=== PATIENT | female | born 1930 | race Caucasian/White ===

== ENCOUNTER 2017-06-03 15:08 | Inpatient (IN) ==
--- NOTE | 2017-06-03 15:22 | Emergency Department Note ---
Disposition Clinical Impression: CHF exacerbation Qualifiers: Congestive heart failure type: unspecified congestive heart failure type Qualified Code(s): I50.9 - Heart failure, unspecified Dyspnea Qualifiers: Dyspnea type: unspecified Qualified Code(s): R06.00 - Dyspnea, unspecified Fluid overload Qualifiers: Hypervolemia type: unspecified Qualified Code(s): E87.70 - Fluid overload, unspecified Disposition: Admitted As Inpatient Condition: Good Time of Disposition: 18:13 SOB HPI - General Chief Complaint: ED Shortness of Breath/Dyspnea Stated Complaint: SOB Time Seen by Provider: 06/03/17 15:14 Source: patient Mode of arrival: EMS Limitations: no limitations Nursing Notes Reviewed: Yes Vital Signs Reviewed: Yes - History of Present Illness Patient is a 86-year-old female who presents today from a long-term due to shortness of breath and increasing edema. Patient has a past medical history of CHF, aortic stenosis with pig valve replacement, hypertension. Not on any blood thinners. She is accompanied by her son who states that for the past several months, patient has had increased shortness of breath on exertion, increased swelling of the lower extremities. Patient notes pain and bilateral lower extremities. She denies any chest pain, any current shortness of breath. However, she says that she is significantly short of breath when walking. Denies any nausea, vomiting, fevers, diarrhea, abdominal pain, productive cough. She was taking Lasix 20 mg daily but was recently increased to 40 mg daily. She states that this is not helping with her symptoms. Son is concerned that she could be fluid overloaded. - Related Data Home Medications Medication Instructions Recorded Confirmed Acetaminophen [Tylenol] 650 mg PO Q4H PRN 05/11/15 06/03/17 Fluticasone Propionate Nasal 1 spray NS DAILY 05/11/15 06/03/17 [Flonase] TraZODone 50 mg PO HS 05/11/15 06/03/17 Aspirin 81 mg PO DAILY 06/03/17 06/03/17 Bimatoprost [Lumigan] 1 drop BOTH EYES HS 06/03/17 06/03/17 Cholecalciferol (D-3) [Vitamin D] 1,000 unit PO DAILY 06/03/17 06/03/17 Docusate [Colace] 100 mg PO HS 06/03/17 06/03/17 Furosemide [Lasix] 40 mg PO DAILY PRN 06/03/17 06/03/17 Furosemide [Lasix] 40 mg PO QAM 06/03/17 06/03/17 GuaiFENesin/Dextromethorphan 7.5 ml PO Q6H PRN 06/03/17 06/03/17 [Tussin Dm Syrup] Ipratropium/Albuterol Neb [Duoneb] 3 ml IH QID PRN 06/03/17 06/03/17 Multivitamin-Min/Iron/FA/Vit K 1 each PO DAILY 06/03/17 06/03/17 [Multi-Day Plus Minerals Tablet] Omeprazole [PriLOSEC] 20 mg PO DAILY 06/03/17 06/03/17 RisperiDONE [Risperdal] 0.5 mg PO HS 06/03/17 06/03/17 Simvastatin [Zocor] 10 mg PO HS 06/03/17 06/03/17 Allergies Allergy/AdvReac Type Severity Reaction Status Date / Time Sulfa (Sulfonamide Allergy See Verified 05/16/15 15:51 Antibiotics) Comments All systems ED: reviewed and negative except as stated. Constitutional: Denies: fever Cardiovascular: Reports: dyspnea on exertion, edema. Denies: chest pain, palpitations Respiratory: Reports: dyspnea. Denies: cough, wheezes, hemoptysis, stridor, sputum production Gastrointestinal: Denies: abdominal pain, nausea, vomiting Musculoskeletal: Reports: other Neurological: Denies: weakness, numbness, paresthesias Past Medical History - Past Medical History Attestation: Yes The following information was validated with the patient. Source: patient Medical history: Reports: aortic aneurysm, arthritis, cancer, CHF, dementia, GERD, glaucoma, hyperlipidemia, hypertension, malignancy, venous stasis Psychiatric history: Reports: no psych history - Social History Smoking Status: Never smoker Smokeless Tobacco Status: No Alcohol use: Reports: none Drug use: Reports: none Physical Exam - General Limitations: no limitations General appearance: alert - Head Head exam: atraumatic, normocephalic, normal inspection - Eye Eye exam: Present: normal appearance, PERRL, EOMI - ENT ENT exam: normal exam, normal oropharynx, mucous membranes moist - Neck Neck exam: Present: normal inspection, full ROM, trachea midline - Chest Chest inspection: Present: normal inspection, symmetric chest wall rise - Respiratory Respiratory exam: Present: other (Decreased aeration of bilateral lower lobes, mild crackles) - Cardiovascular Cardiovascular exam: Present: regular rate, normal rhythm, normal heart sounds - Abdominal Exam Abdominal exam: Present: soft, Non-Tender. Absent: tenderness, distention, guarding, rebound, rigidity - Extremities Exam Extremities exam: Present: full ROM, tenderness, pedal edema, other (Bilateral lower extremity edema, pitting. Mild generalized tenderness of the bilateral lower extremity. No erythema. .). Absent: calf tenderness - Neurological Exam Neurological exam: Present: alert, oriented X3, CN II-XII intact. Absent: motor sensory deficit - Psychiatric Psychiatric exam: Present: normal affect, normal mood - Skin Skin exam: Present: warm, dry, intact, normal color Course Course Narrative: Patient hypertensive on exam. Currently satting 94% on room air. She has decreased aeration in the bilateral lower lobes along with mild crackles. Pitting edema bilateral lower extremities. Currently concern for fluid overload. Basic labs and chest x-ray were obtained. EKG shows evidence of bundle branch block, atrial fibrillation. Patient is not on blood thinners after discussion of risks versus benefit with clerical office worker, Dr. Pickens. No elevation of white blood cell count. Chronic mild anemia. Clinics EKG that is near baseline for the patient. Troponin negative. Elevated BNP. Chest x-ray shows cardiomegaly, interstitial edema. There is also concern for possible opacity in the left lower lobe. However, patient has no productive cough, no fever, no elevation white blood cell count. We will not treat for now. Patient is given IV Lasix 40 mg. Will admit for CHF exacerbation, fluid overload. Chest X-Ray 06/03/17 15:14 IMPRESSION: Cardiomegaly with mild interstitial central pulmonary edema and bilateral mkbg-[id number]-ojfj-right pleural effusions suggesting mild to moderate CHF. Left basilar opacity may represent atelectasis or consolidation from pneumonia. D/ / 06/03/2017 16:09:39 Rufino Aguirre MD / alphonse Interpreting Provider: Rufino Aguirre MD Vital Signs Temperature 98.1 F 06/03/17 15:11 Pulse Rate 74 06/03/17 15:11 Respiratory Rate 22 06/03/17 15:11 Blood Pressure 183/84 06/03/17 15:11 O2 Sat by Pulse Oximetry 94 06/03/17 15:11 Temperature 98.1 F 06/03/17 20:36 Pulse Rate 93 06/03/17 20:36 Respiratory Rate 16 06/03/17 20:36 Blood Pressure 185/62 06/03/17 20:36 O2 Sat by Pulse Oximetry 93 06/03/17 20:36 Oxygen Delivery Oxygen Delivery Nasal Cannula Shortness of Breath/Dyspnea - [facility] Narrative Medical decision making narrative: Patient hypertensive on exam. Currently satting 94% on room air. She has decreased aeration in the bilateral lower lobes along with mild crackles. Pitting edema bilateral lower extremities. Currently concern for fluid overload. Basic labs and chest x-ray were obtained. EKG shows evidence of bundle branch block, atrial fibrillation. Patient is not on blood thinners after discussion of risks versus benefit with clerical office worker, Dr. Pickens. No elevation of white blood cell count. Chronic mild anemia. Clinics EKG that is near baseline for the patient. Troponin negative. Elevated BNP. Chest x-ray shows cardiomegaly, interstitial edema. There is also concern for possible opacity in the left lower lobe. However, patient has no productive cough, no fever, no elevation white blood cell count. We will not treat for now. Patient is given IV Lasix 40 mg. Will admit for CHF exacerbation, fluid overload. - Medical Records Medical records reviewed: Yes I reviewed the patient's medical records. - Lab Data Lab results reviewed: Yes I reviewed the patient's lab results. Result diagrams: 06/03/17 15:40 06/03/17 15:40 Lab Results 06/03/17 06/03/17 06/03/17 Range/Units 15:40 15:40 15:40 WBC 7.2 (4.3-11.1) K/mcL RBC 3.47 L (3.82-4.97) M/mcL Hgb 10.5 L (11.5-15.4) g/dL Hct 33.6 L (35.3-44.9) % MCV 96.8 (83.0-100.0) fL MCH 30.3 (28.0-33.3) pg MCHC 31.3 L (31.6-35.5) g/dL RDW 15.8 H (11.5-14.5) % Plt Count 123 L (140-400) K/mcL MPV 10.9 (9.4-12.4) fL Immature Gran % 0.4 (0-4) % Seg Neutrophils % 75.7 % Lymphocytes % 10.9 % Monocytes % 10.2 % Eosinophils % 2.4 % Basophils % 0.4 % Neutrophils # 5.5 (1.6-8.9) K/mcL Lymphocytes # 0.8 (0.6-4.6) K/mcL Monocytes # 0.7 (0.0-1.3) K/mcL Eosinophils # 0.2 (0.0-0.6) K/mcL Basophils # 0.0 (0.0-0.2) K/mcL PT (9.4-12.1) Seconds INR APTT (26.0-36.0) Seconds Sodium 144 (136-145) mEq/L Potassium 3.6 (3.5-4.5) mEq/L Chloride 107 (98-109) mEq/L Carbon Dioxide 29 (19-29) mEq/L BUN 23 H (7-20) mg/dL Creatinine 1.35 H (0.57-1.11) mg/dL Est GFR ( Amer) 45 L (> 60) Est GFR (Non-Af Amer) 37 L (> 60) BUN/Creatinine Ratio 17 (6-26) Glucose 124 H (70-99) mg/dL Calculated Osmolality 303 H (280-300) Calcium 8.8 (8.6-10.8) mg/dL Troponin I 0.01 (0-0.03) ng/mL B-Natriuretic Peptide (0-100) pg/mL 06/03/17 06/03/17 Range/Units 15:40 15:40 WBC (4.3-11.1) K/mcL RBC (3.82-4.97) M/mcL Hgb (11.5-15.4) g/dL Hct (35.3-44.9) % MCV (83.0-100.0) fL MCH (28.0-33.3) pg MCHC (31.6-35.5) g/dL RDW (11.5-14.5) % Plt Count (140-400) K/mcL MPV (9.4-12.4) fL Immature Gran % (0-4) % Seg Neutrophils % % Lymphocytes % % Monocytes % % Eosinophils % % Basophils % % Neutrophils # (1.6-8.9) K/mcL Lymphocytes # (0.6-4.6) K/mcL Monocytes # (0.0-1.3) K/mcL Eosinophils # (0.0-0.6) K/mcL Basophils # (0.0-0.2) K/mcL PT 12.7 H (9.4-12.1) Seconds INR 1.2 APTT 30.3 (26.0-36.0) Seconds Sodium (136-145) mEq/L Potassium (3.5-4.5) mEq/L Chloride (98-109) mEq/L Carbon Dioxide (19-29) mEq/L BUN (7-20) mg/dL Creatinine (0.57-1.11) mg/dL Est GFR ( Amer) (> 60) Est GFR (Non-Af Amer) (> 60) BUN/Creatinine Ratio (6-26) Glucose (70-99) mg/dL Calculated Osmolality (280-300) Calcium (8.6-10.8) mg/dL Troponin I (0-0.03) ng/mL B-Natriuretic Peptide 1668 H (0-100) pg/mL - Radiology Data Radiology results reviewed: Yes I reviewed the patient's radiology results. Chest X-Ray 06/03/17 15:14 IMPRESSION: Cardiomegaly with mild interstitial central pulmonary edema and bilateral iaud-ftsbwji-cvmm-right pleural effusions suggesting mild to moderate CHF. Left basilar opacity may represent atelectasis or consolidation from pneumonia. D/ / 06/03/2017 16:09:39 Rufino Aguirre MD / alphonse Interpreting Provider: Rufino Aguirre MD - EKG Data EKG attestation: Yes I reviewed and interpreted this EKG. EKG results narrative: 06/03/2017 at 15:17. A. fib. Rate 67. QRS 142. QTc 474. Left axis deviation. Widened QRS with left bundle branch block S.B.A.R. - S.B.A.R. Situation: Demographics, MOA Background: Presenting Complaint, Relevant PMH, Meds, & Allergies Assessment: Vital Signs, Course and respsone to treatment, Exam Concerns, Patient/Family Expectation, Pertinant Lab Results Recommendation: Barrier(s) to disposition, Recommendation based on pending studies, treatments, or consults S.B.A.RArcelia Report Given to: Roni Buenrostro Repor Time: 18:13 Attestation Statement - Attestation Attestation: I, Ricardo Tyler, examined this patient and my medical decision-making was reviewed with the WATER QUALITY TECHNICIAN/PA/Advanced Practice Nurse/Resident Physician. I agree with the documented findings, disposition and treatment plan as described except to the extent set forth below. 86-year-old female presents with concerns of increasing shortness of breath and edema of the bilateral lower extremities. Patient states her symptoms have been worsening over the past week despite the increase of Lasix by her primary care provider. Chest x-ray shows pleural effusions and pulmonary vascular congestion. Patient denies fevers, chills, nausea, vomiting, cough, chest pain. Patient is status post mitral valve replacement and is currently DNR CC and no longer a surgical candidate for her heart, per the patient, after discussion of risks and benefits with Dr. Pickens. Patient given 40 mg of Lasix IV in the emergency department. She felt comfortable with the plan of action of admission to the hospital for further care and evaluation.
[2017-06-03 15:54] LABS: Basophils % 0.4 %; Eosinophils # 0.2 K/mcL (0.0-0.6); Eosinophils % 2.4 %; Hematocrit 33.6 % (35.3-44.9); Hemoglobin 10.5 g/dL (11.5-15.4); Immature Granulocytes % 0.4 % (0-4); Lymphocytes # 0.8 K/mcL (0.6-4.6); Lymphocytes % 10.9 %; Mean Corpuscular HGB Conc 31.3 g/dL (31.6-35.5); Mean Corpuscular Hemoglobin 30.3 pg (28.0-33.3); Mean Corpuscular Volume 96.8 fL (83.0-100.0); Mean Platelet Volume 10.9 fL (9.4-12.4); Monocytes # 0.7 K/mcL (0.0-1.3); Monocytes % 10.2 %; Neutrophils # 5.5 K/mcL (1.6-8.9); Platelet Count 123 K/mcL (140-400); Red Blood Count 3.47 M/mcL (3.82-4.97); Red Cell Distribution Width 15.8 % (11.5-14.5); Segmented Neutrophils % 75.7 %
[2017-06-03 16:06] LABS: Calcium 8.8 mg/dL (8.6-10.8); Potassium 3.6 mEq/L (3.5-4.5)
[2017-06-03] MEDS ORDERED: Furosemide 40 MG/4 ML VIAL IVP ONE (16:16)
[2017-06-03 16:25] LABS: INR 1.2; Prothrombin Time 12.7 Seconds (9.4-12.1)
[2017-06-03 16:28] LABS: Activated Partial Thrombo Time 30.3 Seconds (26.0-36.0)
[2017-06-03] MEDS ORDERED: Acetaminophen 325 MG TABLET PO PRN ×2 (20:09→20:16)
[2017-06-03] MEDS ORDERED: *HR* Promethazine 25 MG/ML VIAL IVP PRN (20:09)
[2017-06-03] MEDS ORDERED: Naloxone 0.4 MG/ML INJ IVP PRN (20:09)
[2017-06-03] MEDS ORDERED: Ondansetron 4 MG/2 ML VIAL IVP PRN (20:09)
[2017-06-03] MEDS ORDERED: Ipratropium/Albuterol Neb 3 ML IH PRN (20:16)
--- NOTE | 2017-06-03 20:19 | Internal Med History&Physical ---
Date of Encounter: 06/04/17 Time of Encounter: 20:40 Assessment and Plan (1) CHF exacerbation Current visit: Yes Status: Acute Acute exacerbation of CHF - unknown type, unknown LVEF Continue IV Lasix, Lisinopril Chest x-ray - cardiomegaly with mild interstitial edema, left basilar opacity EKG - atrial fibrillation with no acute ST-T changes Troponin - negative BN peptide - 1668 Echocardiogram - pending Restriction, strict I's and O's, daily weight, Cab[place] catheter Cardiac telemetry, continue to monitor closely Qualifiers: Congestive heart failure type: unspecified congestive heart failure type Qualified Code(s): I50.9 - Heart failure, unspecified (2) Pneumonia Current visit: Yes Status: Acute Left basilar opacity seen on chest x-ray - probable community-acquired pneumonia Continue IV Rocephin, Azithromycin, DuoNeb breathing treatment, O2 via nasal cannula Sputum culture Qualifiers: Pneumonia type: due to unspecified organism Laterality: left Lung location: lower lobe of lung Qualified Code(s): J18.1 - Lobar pneumonia, unspecified organism (3) Atrial fibrillation Current visit: Yes Status: Chronic Probable chronic atrial fibrillation - rate controlled Continue Toprol-XL, not on any anticoagulation likely due to advanced age and probable bleed risk Qualifiers: Atrial fibrillation type: chronic Qualified Code(s): I48.2 - Chronic atrial fibrillation (4) Hypertension Current visit: Yes Status: Chronic Essential hypertension, uncontrolled, monitor Start Toprol, Lisinopril Qualifiers: Hypertension type: essential hypertension Qualified Code(s): I10 - Essential (primary) hypertension (5) DVT prophylaxis Current visit: Yes Status: Acute Continue heparin subcutaneous Internal Medicine - H&P: HPI Chief complaint: Shortness of breath Admitted From: Emergency Dept Plans for Post Hospital Care: Transfer [facility] Facility History of present illness: Ms. Woodard is a 86 year old female with past medical history of arthritis, cancer, CHF, dementia, GERD, glaucoma, history of aortic aneurysm repair, hyperlipidemia, hypertension and history of venous stasis. [facility] for shortness of breath and worsening bilateral leg edema. Examined in the room. Patient is awake and alert. She is unable to provide good history due to dementia. Patient's son and daughters are in the room, and they provide history. Family was contacted by nursing facility stating the patient has been feeling more short of breath and her bilateral leg edema has also been worsening. Symptoms seem to gradually worsen over the past few days. Patient currently states she denies any chest pain or shortness of breath. Family members state that she is not at her baseline. No other symptoms at this time. The main concern for the family is significant worsening of bilateral lower leg edema. No acute symptoms. Initial workup in the evening is negative except for elevated BNP peptide. Troponin is negative. EKG reveals atrial fibrillation with no other acute ST-T changes. No other significant findings. CODE STATUS full code. Past Med Surg Social Fam HX - Past Medical History Medical history: aortic aneurysm, arthritis, cancer, CHF, dementia, GERD, glaucoma, hyperlipidemia, hypertension, malignancy, venous stasis Psychiatric history: no psych history - Past Surgical History Surgical History: other (Cardiac valve replacement, aortic aneurysm repair) - Social History Smoking Status: Never smoker Smokeless Tobacco Status: No Alcohol use: none Drug use: none - Family History Mother Living Status: Hx Family Cardiac Disorders: No Hx Family Respiratory Disorders: No Hx Family Cancer: Yes Hx Family GI Disorders: No Hx Family Endocrine Disorder: No Hx Family Neuromuscular Disorders: No Hx Family Neurologic Disorders: No Hx Family HEENT Disorders: No Hx Family Autoimmune Disorders: No Internal Medicine - H&P: Meds Acetaminophen [Tylenol] 650 mg PO Q4H PRN 05/11/15 [History] Fluticasone Propionate Nasal [Flonase] 1 spray NS DAILY 05/11/15 [History] TraZODone 50 mg PO HS 05/11/15 [History] Aspirin 81 mg PO DAILY 06/03/17 [History] Bimatoprost [Lumigan] 1 drop BOTH EYES HS 06/03/17 [History] Cholecalciferol (D-3) [Vitamin D] 1,000 unit PO DAILY 06/03/17 [History] Docusate [Colace] 100 mg PO HS 06/03/17 [History] Furosemide [Lasix] 40 mg PO DAILY PRN 06/03/17 [History] Furosemide [Lasix] 40 mg PO QAM 06/03/17 [History] GuaiFENesin/Dextromethorphan [Tussin Dm Syrup] 7.5 ml PO Q6H PRN 06/03/17 [ History] Ipratropium/Albuterol Neb [Duoneb] 3 ml IH QID PRN 06/03/17 [History] Multivitamin-Min/Iron/FA/Vit K [Multi-Day Plus Minerals Tablet] 1 each PO DAILY 06/03/17 [History] Omeprazole [PriLOSEC] 20 mg PO DAILY 06/03/17 [History] RisperiDONE [Risperdal] 0.5 mg PO HS 06/03/17 [History] Simvastatin [Zocor] 10 mg PO HS 06/03/17 [History] 3 Allergy/AdvReac Type Severity Reaction Status Date / Time Sulfa (Sulfonamide Allergy See Verified 05/16/15 15:51 Antibiotics) Comments All Systems PM: A 10-system review of systems was performed and is negative for pertinent findings except as documented above in the HPI. - Constitutional Constitutional: fatigue, no fever(s), no weakness - EENT Eyes: no change in vision - Cardiovascular Cardiovascular ROS IM: dyspnea (As per family and reports), dyspnea on exertion , no chest pain, no diaphoresis, no lightheadedness, no orthopnea, no palpitations, no syncope - Respiratory Respiratory: dyspnea, dyspnea on exertion, no cough, no wheezing, no chest congestion - Gastrointestinal Gastrointestinal: no abdominal pain, no belching, no diarrhea, no hematochezia, no nausea, no vomiting - Neurological Neurological ROS: no confusion, no convulsions, no loss of vision, no numbness - Constitutional Vitals: Temp Pulse Resp BP Pulse Ox 98.1 F 60 18 148/57 94 06/03/17 15:11 06/03/17 18:29 06/03/17 20:12 06/03/17 20:12 06/03/17 18:29 General appearance: Present: A&O X 2, pleasant, no acute distress, underweight, answers questions appropriately Exam: Patient has moderate dementia - Head Head exam: Present: atraumatic - Eye Eye exam: Present: EOMI - ENT ENT exam: Present: mucous membranes dry - Respiratory Respiratory exam: Present: rales (Mild bilateral). Absent: accessory muscle use , rhonchi, wheezes, tachypnea - Cardiovascular Cardiovascular exam: Present: irregular rhythm, +S1, +S2, systolic murmur - GI/Abdominal GI/Abdominal exam: Present: soft. Absent: distended, firm, guarding, tenderness - Extremities Exam Extremities exam: Present: pedal edema (Bilateral lower leg 3+ pitting edema), radial pulses palpable and symmetrical. Absent: calf tenderness, cyanotic - Neurological Exam Neurological exam: Present: alert, no focal deficits. Absent: facial droop, speech deficit Additional comments: Patient awake and alert, able to follow commands, able to verbalize. Able to move all extremities. Patient has moderate dementia Internal Med - H&P Results - Labs CBC & Chem 7: 06/03/17 15:40 06/03/17 15:40
[2017-06-03] MEDS: risperiDONE 0.25 MG TABLET PO SCH (22:34)
[2017-06-03] MEDS: traZODone 50 MG TABLET PO SCH (22:35)
[2017-06-03] MEDS: Furosemide 40 MG/4 ML VIAL IVP SCH (22:35)
[2017-06-03] MEDS: Azithromycin 250 MG in D5% in Water 250 ML IVPB SCH (23:00)
[2017-06-04 02:13] LABS: Basophils % 0.6 %; Eosinophils # 0.2 K/mcL (0.0-0.6); Eosinophils % 2.6 %; Hematocrit 29.8 % (35.3-44.9); Hemoglobin 9.6 g/dL (11.5-15.4); Immature Granulocytes % 0.4 % (0-4); Immature Platelets 2.7 % (1.1-6.1); Lymphocytes % 14.4 %; Mean Corpuscular HGB Conc 32.2 g/dL (31.6-35.5); Mean Corpuscular Hemoglobin 30.8 pg (28.0-33.3); Mean Corpuscular Volume 95.5 fL (83.0-100.0); Mean Platelet Volume 10.8 fL (9.4-12.4); Monocytes # 0.9 K/mcL (0.0-1.3); Monocytes % 13.2 %; Neutrophils # 4.7 K/mcL (1.6-8.9); Platelet Count 111 K/mcL (140-400); Red Blood Count 3.12 M/mcL (3.82-4.97); Red Cell Distribution Width 15.9 % (11.5-14.5); Segmented Neutrophils % 68.8 %
[2017-06-04 02:27] LABS: Calcium 8.4 mg/dL (8.6-10.8); Magnesium 1.9 mg/dL (1.6-2.6)
[2017-06-04] MEDS: *HR* Heparin 5,000 UNIT/ML VIAL SQ SCH ×2 (06:38→18:50)
[2017-06-04] MEDS: Cholecalciferol (D-3) 1,000 UNIT TABLET PO SCH (09:29)
[2017-06-04] MEDS: Metoprolol XL (24 HR) Succ 25 MG TAB.ER.24H PO SCH (09:29)
[2017-06-04] MEDS: Multivit/Ca/Min/Fe/FA 1 TAB TABLET PO SCH (09:29)
[2017-06-04] MEDS: Aspirin 81 MG TAB.CHEW PO SCH (09:29)
[2017-06-04] MEDS: Lisinopril 20 MG TABLET PO SCH (09:29)
[2017-06-04] MEDS: Furosemide 40 MG/4 ML VIAL IVP SCH ×2 (09:29→21:54)
[2017-06-04] MEDS: Fluticasone Propionate Nasal 50 MCG/SPRAY BOTTLE NS SCH (09:29)
--- NOTE | 2017-06-04 16:03 | Electrocardiograph Report ---
[place] [id number] Test Date: 2017-06-03 Pat Name: Margret Woodard Department: 104 Room: 3B44 Gender: F Bacteriology Research Assistant: TMR : 1930 Requested By: Ricardo Tyler Order Number: [id number] Reading MD: Renny Renee MD Measurements Intervals [place] Rate: 67 P: NV: 0 QRS: -43 QRSD: 142 T: 130 QT: 459 QTc: 474 Interpretive Statements ATRIAL FIBRILLATION MARKED LEFT AXIS DEVIATION LEFT BUNDLE BRANCH BLOCK Poor R wave progression Electronically Signed On 06-04-2017 16:02:31 EDT by Renny Renee MD
--- NOTE | 2017-06-04 17:45 | Internal Med Progress Note ---
Date of Encounter: 06/04/17 Time of Encounter: 13:35 - Assessment and plan (1) CHF exacerbation Current Visit: Yes Status: Acute Assessment and plan: Patient with acute exacerbation of CHF. Patient with minimal, nonpitting edema in bilateral lower extremities. Family reports that it is significantly better today since she has kept her feet up and elevated. Echo done today shows LVEF of 60%, mild concentric LV hypertrophy, mild L fee DD , atypical septal motion consistent with bundle branch block, severely dilated left atrium, bioprosthetic aortic valve not well visualized, moderate aortic regurgitation and significant prosthetic aortic stenosis. Moderate MR, moderate TR, overall findings similar to prior report from November,. BMP is also elevated at 1668. Troponins are negative 3. Continue telemetry, IV Lasix, fluid restriction, strict I and O, and daily weights. Qualifiers: Congestive heart failure type: diastolic Qualified Code(s): I50.33 - Acute on chronic diastolic (congestive) heart failure (2) Dyspnea Current Visit: Yes Status: Acute Assessment and plan: Patient reports increasing shortness of breath, dyspnea over the last 2 weeks. Patient normally has pneumonia, but acute exacerbation of CHF. Her lungs are clear and diminished, she is not requiring supplemental oxygen. Qualifiers: Dyspnea type: shortness of breath Qualified Code(s): R06.02 - Shortness of breath; R06.00 - Dyspnea, unspecified; R06.01 - Orthopnea (3) Pneumonia Current Visit: Yes Status: Acute Assessment and plan: Chest x-ray there is left basilar opacity, probable community-acquired pneumonia. Patient is being treated with Rocephin, Zithromax, DuoNeb nebs scheduled, titrate oxygen as needed to maintain sats greater than 92%. Sputum culture is pending. Qualifiers: Pneumonia type: due to unspecified organism Laterality: left Lung location: lower lobe of lung Qualified Code(s): J18.1 - Lobar pneumonia, unspecified organism (4) Atrial fibrillation Current Visit: Yes Status: Chronic Assessment and plan: Rate controlled. Continue beta lori. Patient is not on anticoagulation most likely due to advanced age and possible fall risk, increased risk of bleeding. Qualifiers: Atrial fibrillation type: chronic Qualified Code(s): I48.2 - Chronic atrial fibrillation (5) Hypertension Current Visit: Yes Status: Chronic Assessment and plan: Chronic. Continue home medications. Qualifiers: Hypertension type: essential hypertension Qualified Code(s): I10 - Essential (primary) hypertension (6) DVT prophylaxis Current Visit: Yes Status: Acute Assessment and plan: Heparin subcutaneous. - Time Spent With Patient less than 15 minutes - Subjective Interval history: Patient was seen and assessed 1335. She has multiple family members at the bedside who are active in her care. She reports fatigue and dyspnea on exertion for the last 2 weeks. Family reports that patient has confusion, most likely dementia, and is somewhat of a poor historian. Patient lives in independent living and has several friends with whom she interacts daily. Patient denies chest pain, dizziness, blurred vision, headaches, abdominal pain , nausea, vomiting, diarrhea, diaphoresis. She is obviously mildly short of breath sitting. Family states this is new over the last 2 weeks. She is in no distress is not requiring supplemental oxygen. - Constitutional Vitals: Temp Pulse Resp BP Pulse Ox 97.9 F 60 14 152/62 91 06/04/17 15:07 06/04/17 15:07 06/04/17 15:07 06/04/17 15:07 06/04/17 15:07 General appearance: Present: cooperative, A&O X 2, mild distress, pleasant, underweight, answers questions appropriately - Head Head exam: Present: atraumatic, normal inspection, normocephalic - Eye Eye exam: Present: normal appearance, conjuntiva pink, sclera anicteric - Neck Neck exam general surgery: Present: supple, trachea midline. Absent: lymphadenopathy - Respiratory Respiratory exam: Present: decreased breath sounds, CTAB, respiratory distress. Absent: accessory muscle use, chest wall tenderness, rales, rhonchi, wheezes - Cardiovascular Cardiovascular exam: Present: RRR, +S1, +S2. Absent: diastolic murmur, gallop, irregular rhythm, rubs, systolic murmur Additional comments: Patient has biomechanical heart valve, murmur heard. - GI/Abdominal GI/Abdominal exam: Present: normal bowel sounds, soft, no peritoneal signs. Absent: distended, tenderness - Extremities Exam Extremities exam: Present: warm, radial pulses palpable and symmetrical. Absent : calf tenderness, cyanotic, pedal edema - Neurological Exam Neurological exam: Present: alert, altered, oriented X3, no focal deficits. Absent: facial droop, speech deficit - Skin Skin exam: Present: dry, intact, normal color, warm. Absent: rash Internal Medicine: Result - Labs CBC & Chem 7: 06/04/17 02:05 06/04/17 02:05 Labs: Short CBC 06/04/17 Range/Units 02:05 WBC 6.8 (4.3-11.1) K/mcL Hgb 9.6 L (11.5-15.4) g/dL Hct 29.8 L (35.3-44.9) % Plt Count 111 L (140-400) K/mcL Neutrophils # 4.7 (1.6-8.9) K/mcL BMP 06/04/17 02:05 Sodium 142 Potassium 3.0 L Chloride 107 Carbon Dioxide 28 BUN 23 H Creatinine 1.26 H Glucose 118 H Calcium 8.4 L Cardiac Enzymes 06/03/17 06/04/17 06/04/17 Range/Units 20:41 02:05 08:32 Troponin I 0.02 0.01 0.00 (0-0.03) ng/mL - ABG Interpretation ABG results: PT/INR, D-dimer PT 12.7 Seconds (9.4-12.1) H 06/03/17 15:40 Consult Discharge Plan - Plan Referrals: Kavon Mora Jr, MD [Primary Care Provider] -
[2017-06-04] MEDS: traZODone 50 MG TABLET PO SCH (21:54)
[2017-06-04] MEDS: risperiDONE 0.25 MG TABLET PO SCH (21:56)
[2017-06-05] MEDS: Azithromycin 250 MG in D5% in Water 250 ML IVPB SCH ×2 (00:34→22:57)
[2017-06-05] MEDS: Latanoprost 2.5 ML BOTTLE BOTH EYES SCH ×2 (00:39→22:04)
[2017-06-05] MEDS: *HR* Heparin 5,000 UNIT/ML VIAL SQ SCH ×2 (07:25→18:20)
[2017-06-05] MEDS: Fluticasone Propionate Nasal 50 MCG/SPRAY BOTTLE NS SCH (10:09)
[2017-06-05] MEDS: Furosemide 40 MG/4 ML VIAL IVP SCH (10:09)
[2017-06-05] MEDS: Metoprolol XL (24 HR) Succ 25 MG TAB.ER.24H PO SCH (10:09)
[2017-06-05] MEDS: Aspirin 81 MG TAB.CHEW PO SCH (10:09)
[2017-06-05] MEDS: Cholecalciferol (D-3) 1,000 UNIT TABLET PO SCH (10:09)
[2017-06-05] MEDS: Multivit/Ca/Min/Fe/FA 1 TAB TABLET PO SCH (10:09)
[2017-06-05] MEDS: Lisinopril 20 MG TABLET PO SCH (10:09)
[2017-06-05 15:20] LABS: Basophils % 0.6 %; Eosinophils # 0.2 K/mcL (0.0-0.6); Hematocrit 34.8 % (35.3-44.9); Hemoglobin 10.6 g/dL (11.5-15.4); Immature Granulocytes % 0.3 % (0-4); Lymphocytes # 0.7 K/mcL (0.6-4.6); Lymphocytes % 11.2 %; Mean Corpuscular HGB Conc 30.5 g/dL (31.6-35.5); Mean Corpuscular Hemoglobin 30.4 pg (28.0-33.3); Mean Corpuscular Volume 99.7 fL (83.0-100.0); Mean Platelet Volume 11.9 fL (9.4-12.4); Monocytes # 0.8 K/mcL (0.0-1.3); Monocytes % 12.1 %; Neutrophils # 4.8 K/mcL (1.6-8.9); Platelet Count 117 K/mcL (140-400); Red Blood Count 3.49 M/mcL (3.82-4.97); Red Cell Distribution Width 15.9 % (11.5-14.5); Segmented Neutrophils % 72.8 %
[2017-06-05 15:32] LABS: Calcium 8.9 mg/dL (8.6-10.8); Potassium 3.6 mEq/L (3.5-4.5)
--- NOTE | 2017-06-05 16:38 | Internal Med Progress Note ---
Date of Encounter: 06/05/17 Time of Encounter: 15:15 - Assessment and plan (1) CHF exacerbation Current Visit: Yes Status: Acute Assessment and plan: Patient with acute exacerbation of CHF. Patient with minimal, nonpitting edema in bilateral lower extremities improved today. Echo shows LVEF of 60%, mild concentric LV hypertrophy, mild L fee DD, atypical septal motion consistent with bundle branch block, severely dilated left atrium , bioprosthetic aortic valve not well visualized, moderate aortic regurgitation and significant prosthetic aortic stenosis. Moderate MR, moderate TR, overall findings similar to prior report from November,. BMP is also elevated at 1668. Troponins are negative 3. Continue telemetry, IV Lasix, fluid restriction, strict I and O, and daily weights. Cardiology consulted Oxygen as needed to maintain sats greater than 92%. Qualifiers: Congestive heart failure type: diastolic Qualified Code(s): I50.33 - Acute on chronic diastolic (congestive) heart failure (2) Dyspnea Current Visit: Yes Status: Acute Assessment and plan: Patient reports increasing shortness of breath, dyspnea over the last 2 weeks. Patient has pneumonia, as well as acute exacerbation of CHF. Her lungs are clear and diminished, she is not requiring supplemental oxygen. Pt appears to be more SOB. Abd is distended, which is not normal for pt, which may be the cause of the increased dyspnea. KUB ordered. Continue to monitor labs and vitals 02 as needed to maintain sats >92% Qualifiers: Dyspnea type: shortness of breath Qualified Code(s): R06.02 - Shortness of breath; R06.00 - Dyspnea, unspecified; R06.01 - Orthopnea (3) Pneumonia Current Visit: Yes Status: Acute Assessment and plan: Chest x-ray shows left basilar opacity, probable community-acquired pneumonia. Patient is being treated with Rocephin, Zithromax, DuoNeb nebs scheduled, titrate oxygen as needed to maintain sats greater than 92%. Sputum culture is pending. Qualifiers: Pneumonia type: due to unspecified organism Laterality: left Lung location: lower lobe of lung Qualified Code(s): J18.1 - Lobar pneumonia, unspecified organism (4) Atrial fibrillation Current Visit: Yes Status: Chronic Assessment and plan: Rate controlled. Continue beta lori. Patient is not on anticoagulation most likely due to advanced age and possible fall risk, increased risk of bleeding. Qualifiers: Atrial fibrillation type: chronic Qualified Code(s): I48.2 - Chronic atrial fibrillation (5) Hypertension Current Visit: Yes Status: Chronic Assessment and plan: Chronic. Continue home medications. Well controlled in inpt setting. Qualifiers: Hypertension type: essential hypertension Qualified Code(s): I10 - Essential (primary) hypertension (6) DVT prophylaxis Current Visit: Yes Status: Acute Assessment and plan: Heparin subcutaneous. LILLI pennington ordered. Up to chair. - Time Spent With Patient less than 15 minutes - Subjective Interval history: Patient was seen and assessed 1515. Son is at bedside. Pt is drowsy and more confused than yesterday. She states that she doesn't understand why I am picking on her when asked if she has pain. Her abd is distended and pt denies pain, n/v/d, and states that she has been able to eat and drink without difficulty. She is alert and oriented to name only, states that she knows that Theresa is president, but is unaware of year, place, or month. Peripheral edema has improved and pt states that they are not as painful as they were on admission. - Constitutional Vitals: Temp Pulse Resp BP Pulse Ox 97.3 F L 64 16 146/49 92 06/05/17 15:02 06/05/17 15:02 06/05/17 15:02 06/05/17 15:02 06/05/17 15:02 General appearance: Present: cooperative, A&O X 1, mild distress, pleasant, underweight - Head Head exam: Present: atraumatic, normal inspection, normocephalic - Eye Eye exam: Present: conjuntiva pink, sclera anicteric - Neck Neck exam general surgery: Present: supple, trachea midline. Absent: lymphadenopathy - Respiratory Respiratory exam: Present: CTAB. Absent: accessory muscle use, chest wall tenderness, rales, rhonchi, stridor, wheezes - Cardiovascular Cardiovascular exam: Present: RRR, +S1, +S2. Absent: gallop, rubs Additional comments: Pt has prosthetic valve. - GI/Abdominal GI/Abdominal exam: Present: distended, hyperactive bowel sounds, soft, no peritoneal signs. Absent: firm, hernia, hepatomegaly, mass, rigid, tenderness - Expanded GI/Abdominal Exam GI/Abdominal exam expanded: Absent: Brito's sign, Rovsing's sign, tenderness at McBurney's Point - Extremities Exam Extremities exam: Present: pedal edema, warm, radial pulses palpable and symmetrical. Absent: calf tenderness, cyanotic, tenderness - Neurological Exam Neurological exam: Present: alert, altered, pronater drift. Absent: oriented X3 , facial droop, speech deficit - Skin Skin exam: Present: dry, intact, normal color. Absent: rash, warm Internal Medicine: Result - Labs CBC & Chem 7: 06/05/17 15:13 06/05/17 15:13 Labs: Short CBC 06/05/17 Range/Units 15:13 WBC 6.6 (4.3-11.1) K/mcL Hgb 10.6 L (11.5-15.4) g/dL Hct 34.8 L (35.3-44.9) % Plt Count 117 L (140-400) K/mcL Neutrophils # 4.8 (1.6-8.9) K/mcL BMP 06/05/17 15:13 Sodium 139 Potassium 3.6 Chloride 104 Carbon Dioxide 24 BUN 20 Creatinine 1.43 H Glucose 173 H Calcium 8.9 - ABG Interpretation ABG results: PT/INR, D-dimer PT 12.7 Seconds (9.4-12.1) H 06/03/17 15:40 Consult Discharge Plan - Plan Referrals: Kavon Mora Jr, MD [Primary Care Provider] -
[2017-06-05] MEDS: Furosemide 20 MG/2 ML VIAL IVP SCH (21:52)
[2017-06-05] MEDS: risperiDONE 0.25 MG TABLET PO SCH (21:52)
[2017-06-05] MEDS: traZODone 50 MG TABLET PO SCH (21:52)
[2017-06-06] MEDS: *HR* Heparin 5,000 UNIT/ML VIAL SQ SCH ×2 (05:52→18:02)
[2017-06-06 06:55] LABS: Basophils % 0.5 %; Eosinophils # 0.3 K/mcL (0.0-0.6); Eosinophils % 4.2 %; Hemoglobin 9.9 g/dL (11.5-15.4); Immature Granulocytes % 0.5 % (0-4); Lymphocytes % 15.5 %; Mean Corpuscular HGB Conc 31.9 g/dL (31.6-35.5); Mean Corpuscular Hemoglobin 30.7 pg (28.0-33.3); Mean Platelet Volume 11.3 fL (9.4-12.4); Monocytes # 0.8 K/mcL (0.0-1.3); Neutrophils # 4.2 K/mcL (1.6-8.9); Platelet Count 109 K/mcL (140-400); Red Blood Count 3.23 M/mcL (3.82-4.97); Red Cell Distribution Width 15.9 % (11.5-14.5); Segmented Neutrophils % 67.3 %
[2017-06-06 06:56] LABS: Calcium 8.3 mg/dL (8.6-10.8); Potassium 3.4 mEq/L (3.5-4.5)
[2017-06-06] MEDS: Cholecalciferol (D-3) 1,000 UNIT TABLET PO SCH (10:01)
[2017-06-06] MEDS: Metoprolol XL (24 HR) Succ 25 MG TAB.ER.24H PO SCH (10:01)
[2017-06-06] MEDS: Multivit/Ca/Min/Fe/FA 1 TAB TABLET PO SCH (10:01)
[2017-06-06] MEDS: Lisinopril 20 MG TABLET PO SCH (10:01)
[2017-06-06] MEDS: Furosemide 20 MG/2 ML VIAL IVP SCH ×2 (10:01→18:01)
[2017-06-06] MEDS: Aspirin 81 MG TAB.CHEW PO SCH (10:01)
[2017-06-06] MEDS: Fluticasone Propionate Nasal 50 MCG/SPRAY BOTTLE NS SCH (10:01)
--- NOTE | 2017-06-06 10:17 | Cardiology Consult Note ---
Date of Encounter: 06/06/17 Time of Encounter: 10:15 Assessment and Plan (1) CHF exacerbation Current Visit: Yes Status: Acute Per Cardiology: Presented with SOB-- appears somewhat improved, however patient A&O x 1 only. BNP 1668. CXR showed: "Cardiomegaly with mild interstitial central pulmonary edema and bilateral qwxf-xifdkfk-ebzf-right pleural effusions suggesting mild to moderate CHF. Left basilar opacity may represent atelectasis or consolidation from pneumonia". Net I&O -2640ml. Now on IV Lasix 20mg BID (was 40mg). Creat. slightly worsened- - will dc ACEI for now. May need more aggressive diuresis-- will monitor. Qualifiers: Congestive heart failure type: diastolic Qualified Code(s): I50.33 - Acute on chronic diastolic (congestive) heart failure (2) History of aortic valve replacement with bioprosthetic valve Current Visit: Yes Status: Chronic Per Cardiology: Echo showed: LVEF 60%. Normal LV chamber size and function. Mild concentric left ventricular hypertrophy. Moderate left ventricular diastolic dysfunction. Atypical septal motion consistent with bundle branch block. Normal right ventricular structure and function. Severely dilated left atrium. Moderate to severely dilated right atrium. Bioprosthetic aortic valve not well visualized. Moderate aortic regurgitation. Unclear if valvular or paravalvular. Significant prosthetic aortic stenosis suggested by Doppler. Peak velocity 4.18 m/s. Mean gradient 36 mmHg. Moderate mitral regurgitation. Moderate-severe tricuspid regurgitation. Moderate pulmonary hypertension. Estimated RVSP is 51 mmHg. Normally sized aortic root. Synthetic graft noted. A device lead was visualized in the right atrium and right ventricle. Overall, findings similar to prior report from 11/2014. Left Ventricular Wall Motion: Rest Echo Findings All wall segments showed normal motion. Continue with diuresis. I attempted multiple times to discuss with family, none present at bedside today. I left message with son Brian Middleton in an attempt to discuss her baseline mental status and status of her known aortic stenosis. Can possibly explore outpatient eval referral to [facility] for TAVR, however suspect patient may be poor candidate. Further recs pending family conversations. May consider palliative care to address long-term code status. (3) Atrial fibrillation Current Visit: Yes Status: Chronic Per Cardiology: Past hx of afib? On BB. Currently SR. Has old LBBB. According to records [facility] nonobstructive CAD 2011. On BB. Not currently anticoagulated. Qualifiers: Atrial fibrillation type: unspecified Qualified Code(s): I48.91 - Unspecified atrial fibrillation Discussion w patient/family: Thank you for involving us in the care of your patient. Please call with any questions. History of Present Illness Consult date: 06/06/17 Requesting physician: Petra Fox Consult reason: Aortic Stenosis, CHF Chief complaint: SOB History of present illness: Ms. 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 Cardiology consult for CHF and aortic stenosis. Patient seen with no family currently present at bedside. She is alert to person. She believed the year was 1996. Patient was unsure of her location. She indicates she lives at home alone. Somewhat somnolent. Speech somewhat garbled. She reports her shortness of breath has improved. She does indicate some palpitations and dizziness currently. She denies any chest pain. Patient unsure of he PMH. Past Med Surg Social Fam HX - Past Medical History Attestation: Yes The following information was validated with the patient. Source: patient, old records reviewed Medical history: aortic aneurysm, arthritis, cancer, CHF, dementia, GERD, glaucoma, hyperlipidemia, hypertension, malignancy, venous stasis Psychiatric history: no psych history - Past Surgical History Surgical History: other (Cardiac valve replacement, aortic aneurysm repair) - Social History Smoking Status: Never smoker Smokeless Tobacco Status: No Alcohol use: none Drug use: none - Family History Mother Living Status: Hx Family Cardiac Disorders: No Hx Family Respiratory Disorders: No Hx Family Cancer: Yes Hx Family GI Disorders: No Hx Family Endocrine Disorder: No Hx Family Neuromuscular Disorders: No Hx Family Neurologic Disorders: No Hx Family HEENT Disorders: No Hx Family Autoimmune Disorders: No Medications and Allergies Acetaminophen [Tylenol] 650 mg PO Q4H PRN 05/11/15 [History] Fluticasone Propionate Nasal [Flonase] 1 spray NS DAILY 05/11/15 [History] TraZODone 50 mg PO HS 05/11/15 [History] Aspirin 81 mg PO DAILY 06/03/17 [History] Bimatoprost [Lumigan] 1 drop BOTH EYES HS 06/03/17 [History] Cholecalciferol (D-3) [Vitamin D] 1,000 unit PO DAILY 06/03/17 [History] Docusate [Colace] 100 mg PO HS 06/03/17 [History] Furosemide [Lasix] 40 mg PO DAILY PRN 06/03/17 [History] Furosemide [Lasix] 40 mg PO QAM 06/03/17 [History] GuaiFENesin/Dextromethorphan [Tussin Dm Syrup] 7.5 ml PO Q6H PRN 06/03/17 [ History] Ipratropium/Albuterol Neb [Duoneb] 3 ml IH QID PRN 06/03/17 [History] Multivitamin-Min/Iron/FA/Vit K [Multi-Day Plus Minerals Tablet] 1 each PO DAILY 06/03/17 [History] Omeprazole [PriLOSEC] 20 mg PO DAILY 06/03/17 [History] RisperiDONE [Risperdal] 0.5 mg PO HS 06/03/17 [History] Simvastatin [Zocor] 10 mg PO HS 06/03/17 [History] 3 Allergy/AdvReac Type Severity Reaction Status Date / Time Sulfa (Sulfonamide Allergy See Verified 05/16/15 15:51 Antibiotics) Comments All Systems Review: A 10-system review of systems was performed and is negative for pertinent findings except as documented above in the HPI. - Cardiovascular Cardiovascular: as per HPI, dyspnea at rest, dyspnea on exertion Physical Examination Vital Signs, Last 4 Hours Temp Pulse Resp BP Pulse Ox 06/06/17 07:37 98.1 F 57 13 168/71 92 General: Conversant, No Apparent Distress HEENT: Atraumatic, Normocephaly, Mucus Membranes Moist Cardiac: Reg Rate and Rhythm, Normal S1 and S2, No Murmur (IV/ murmur) Lungs: Normal Breath Sounds, No Wheeze, Rales, Rhonchi Neuro: Alert and responsive Abdomen: Soft, Non-Tender Skin: No rashes noted on visualized skin Musculoskeletal: No Chest Wall Tenderness Extremities: No Clubbing, No Cyanosis, Normal Pulses, Other (+2 generalized nonpitting edema) Results 06/06/17 06:17 06/06/17 06:17 Lab Results Laboratory Tests 06/03/17 06/03/17 06/03/17 15:40 15:40 15:40 Hgb 10.5 L Hct 33.6 L Plt Count INR Creatinine 1.35 H Est GFR (Non-Af Amer) 37 L Magnesium Troponin I 0.01 B-Natriuretic Peptide 06/03/17 06/03/17 06/03/17 15:40 15:40 20:41 Hgb Hct Plt Count INR 1.2 Creatinine Est GFR (Non-Af Amer) Magnesium Troponin I 0.02 B-Natriuretic Peptide 1668 H 06/04/17 06/04/17 06/04/17 02:05 02:05 08:32 Hgb Hct Plt Count INR Creatinine Est GFR (Non-Af Amer) Magnesium 1.9 Troponin I 0.01 0.00 B-Natriuretic Peptide 06/06/17 06/06/17 06:17 06:17 Hgb 9.9 L Hct 31.0 L Plt Count 109 L INR Creatinine 1.20 H Est GFR (Non-Af Amer) 42 L Magnesium Troponin I B-Natriuretic Peptide ITS Impressions Chest X-Ray 06/03/17 15:14 IMPRESSION: Cardiomegaly with mild interstitial central pulmonary edema and bilateral pzmt-ummpepx-ptxe-right pleural effusions suggesting mild to moderate CHF. Left basilar opacity may represent atelectasis or consolidation from pneumonia. D/ / 06/03/2017 16:09:39 Rufino Aguirre MD / alphonse Interpreting Provider: Rufino Aguirre MD Intake & Output 06/03/17 06/04/17 06/05/17 06/06/17 23:59 23:59 23:59 23:59 Intake Total 100 / 100 1190 / 1190 470 / 470 Output Total 1999 / 1999 1500 / 1500 800 / 800 100 / 100 Balance -1900 / -1900 -310 / -310 -330 / -330 -100 / -100 Weight 7.24 kg 69.836 kg 70.9 kg 71.7 kg Active Medications Acetaminophen (Tylenol) 650 mg PO Q4H PRN PRN Reason: FEVER/PAIN Stop: 12/03/17 20:17 Albuterol/Ipratropium (Duoneb) 3 ml IH QID PRN PRN Reason: Shortness Of Breath Stop: 12/03/17 20:17 Aspirin (Aspirin) 81 mg PO DAILY ARGELIA Stop: 12/04/17 09:01 Last Admin: 06/06/17 10:01 Dose: 81 mg Docusate Sodium (Colace) 100 mg PO HS ARGELIA PRN Reason: Protocol Stop: 12/03/17 21:01 Last Admin: 06/05/17 21:52 Dose: 100 mg Fluticasone Propionate (Flonase) 50 mcg NS DAILY ARGELIA PRN Reason: Protocol Stop: 12/04/17 09:01 Last Admin: 06/06/17 10:01 Dose: Not Given Furosemide (Lasix) 20 mg IVP BIDDIURETIC ARGELIA Stop: 12/05/17 19:01 Last Admin: 06/06/17 10:01 Dose: 20 mg Guaifenesin (Robitussin/Dm) 7.5 ml PO Q6H PRN PRN Reason: Cough/Congestion Heparin Sodium (Porcine) (Heparin) 5,000 unit SQ Q12HR ARGELIA Stop: 12/04/17 06:01 Last Admin: 06/06/17 05:52 Dose: 5,000 unit Azithromycin 250 mg/ Dextrose 250 mls @ 252 mls/hr IVPB Q24H ARGELIA Stop: 12/03/17 21:01 Last Admin: 06/05/17 22:57 Dose: 252 mls/hr Ceftriaxone Sodium 1,000 mg/ (Dextrose) 100 mls @ 200 mls/hr IVPB Q24H ARGELIA Stop: 12/03/17 21:01 Last Infusion: 06/05/17 23:32 Dose: Infused Latanoprost (Xalatan) 1 drop BOTH EYES HS ARGELIA PRN Reason: Protocol Stop: 12/04/17 22:01 Last Admin: 06/05/17 22:04 Dose: 1 drop Lisinopril (Zestril) 20 mg PO DAILY ARGELIA PRN Reason: Protocol Stop: 12/04/17 09:01 Last Admin: 06/06/17 10:01 Dose: 20 mg Metoprolol Succinate (Toprol Xl) 12.5 mg PO DAILY ARGELIA Stop: 12/04/17 09:01 Last Admin: 06/06/17 10:01 Dose: 12.5 mg Multivitamins/Calcium (Thera M Plus) 1 tab PO DAILY ARGELIA Stop: 12/04/17 09:01 Last Admin: 06/06/17 10:01 Dose: 1 tab Naloxone HCl (Narcan) 0.4 mg IVP Q2MIN PRN PRN Reason: Opioid Reversal Stop: 12/03/17 20:10 Ondansetron HCl (Zofran) 4 mg IVP Q8HR PRN PRN Reason: Nausea And Vomiting Stop: 12/03/17 20:10 Pharmacy Profile Note (Patient Taking Own Medication) 0 each OP HS [facility] Stop: 12/03/17 21:01 Last Admin: 06/06/17 09:56 Dose: Not Given Promethazine HCl (Phenergan) 12.5 mg IVP Q6HR PRN PRN Reason: Nausea And Vomiting Stop: 12/03/17 20:10 Risperidone (Risperdal) 0.5 mg PO [facility] Stop: 12/03/17 21:01 Last Admin: 06/05/17 21:52 Dose: 0.5 mg Simvastatin (Zocor) 10 mg PO HS [facility] Stop: 12/03/17 21:01 Last Admin: 06/05/17 21:52 Dose: 10 mg Trazodone HCl (Trazodone) 50 mg PO [facility] Stop: 12/03/17 21:01 Last Admin: 06/05/17 21:52 Dose: 50 mg Vitamin D (Vitamin D) 1,000 unit PO DAILY [facility] Stop: 12/04/17 09:01 Last Admin: 06/06/17 10:01 Dose: 1,000 unit - Imaging and Cardiology Chest Xray: report reviewed Echo: report reviewed - EKG Interpretation EKG results cardiology: personally reviewed (Sinus rhythm with left bundle branch block, comparable to previous ECG), other (Telemetry reviewed with average heart rate 70, sinus rhythm) Consult Discharge Plan - Plan Referrals: Kavon Mora Jr, MD [Primary Care Provider] -
[2017-06-06] MEDS ORDERED: Metoprolol XL (24 HR) Succ 25 MG TAB.ER.24H PO ONE (11:03)
--- NOTE | 2017-06-06 14:43 | Event Note ---
Date of Encounter: 06/06/17 Time of Encounter: 14:00 - Cardiology Event Note Patient now seen with daughter and son-in-law at bedside. They confirm patient is DNR/DNI/Comfort Care-- primary service aware. They also confirmed patient with history of dementia and currently baseline mental status. He reported overall shortness of breath mildly improved, however still not at baseline. They also report patient previously has not desired any further evaluation of her aortic stenosis. A brief discussion about possible evaluation at [facility] for TAVR, however patient most likely not a good candidate. They are agreeable to follow up with primary box feeder Dr. Pickens as outpatient. Discussed with primary service and Dr. Ricardo Copeland, will sign off, re-consult as needed, follow -up scheduled. All questions answered.
--- NOTE | 2017-06-06 18:40 | Internal Med Progress Note ---
Date of Encounter: 06/06/17 Time of Encounter: 13:20 - Assessment and plan (1) CHF exacerbation Current Visit: Yes Status: Acute Assessment and plan: Patient with acute exacerbation of CHF. Patient with minimal, nonpitting edema in bilateral lower extremities improved today. Echo shows LVEF of 60%, mild concentric LV hypertrophy, mild L fee DD, atypical septal motion consistent with bundle branch block, severely dilated left atrium , bioprosthetic aortic valve not well visualized, moderate aortic regurgitation and significant prosthetic aortic stenosis. Moderate MR, moderate TR, overall findings similar to prior report from November,. BMP is also elevated at 1668. Troponins are negative 3. She has had net diuresis of 2000 160 miles. Lasix has been decreased to 20 mg twice a day, is ACEI has been DC'd as well. We will continue to monitor renal function. Continue telemetry, IV Lasix, fluid restriction, strict I and O, and daily weights. Cardiology consulted Oxygen as needed to maintain sats greater than 92%. Qualifiers: Congestive heart failure type: diastolic Qualified Code(s): I50.33 - Acute on chronic diastolic (congestive) heart failure (2) Dyspnea Current Visit: Yes Status: Acute Assessment and plan: Patient reports increasing shortness of breath, dyspnea over the last 2 weeks. Patient has pneumonia, as well as acute exacerbation of CHF. Her lungs are clear and diminished, she is not requiring supplemental oxygen. Pt appears to be more SOB. Abd is distended, which is not normal for pt, which may be the cause of the increased dyspnea. KUB ordered and was negative for obstruction. Continue to monitor labs and vitals 02 as needed to maintain sats >92% Qualifiers: Dyspnea type: shortness of breath Qualified Code(s): R06.02 - Shortness of breath; R06.00 - Dyspnea, unspecified; R06.01 - Orthopnea (3) Pneumonia Current Visit: Yes Status: Acute Assessment and plan: Chest x-ray shows left basilar opacity, probable community-acquired pneumonia. Patient is being treated with Rocephin, Zithromax, DuoNeb nebs scheduled, titrate oxygen as needed to maintain sats greater than 92%. Sputum culture is still pending. Lungs are clear and diminished without wheezing, rales, rhonchi. Qualifiers: Pneumonia type: due to unspecified organism Laterality: left Lung location: lower lobe of lung Qualified Code(s): J18.1 - Lobar pneumonia, unspecified organism (4) Atrial fibrillation Current Visit: Yes Status: Chronic Assessment and plan: Rate controlled. Continue beta lori. Patient is not on anticoagulation most likely due to advanced age and possible fall risk, increased risk of bleeding. Cardiology is on board, no recommendations for A. fib. Qualifiers: Atrial fibrillation type: unspecified Qualified Code(s): I48.91 - Unspecified atrial fibrillation (5) Hypertension Current Visit: Yes Status: Chronic Assessment and plan: Chronic. Continue home medications. Well controlled in inpt setting. Continue to monitor labs. Qualifiers: Hypertension type: essential hypertension Qualified Code(s): I10 - Essential (primary) hypertension (6) DVT prophylaxis Current Visit: Yes Status: Acute Assessment and plan: Heparin subcutaneous. LILLI pennington ordered. Up to chair. - Time Spent With Patient less than 15 minutes - Subjective Interval history: Patient was seen and assessed 1320. Daughter is at bedside. Pt is sitting up eating lunch tray. Her abd is distended and more firm than yesterday and pt denies pain, n/v/d, and states that she has been able to eat and drink without difficulty. She is alert and oriented to name only, is able to recall the month , but not the year. Respriations do not seem less labored than yesterday. Peripheral edema has improved and pt states that they are not as painful as they were on admission. - Constitutional Vitals: Temp Pulse Resp BP Pulse Ox 97.5 F L 60 14 147/61 93 06/06/17 16:07 06/06/17 16:07 06/06/17 16:07 06/06/17 16:07 06/06/17 16:07 General appearance: Present: cooperative, A&O X 1, mild distress, pleasant, underweight - Head Head exam: Present: atraumatic, normal inspection, normocephalic - Eye Eye exam: Present: normal appearance, conjuntiva pink, sclera anicteric - Neck Neck exam general surgery: Present: normal inspection, supple, trachea midline. Absent: lymphadenopathy - Respiratory Respiratory exam: Present: decreased breath sounds, CTAB. Absent: accessory muscle use, chest wall tenderness, rales, rhonchi, wheezes - Cardiovascular Cardiovascular exam: Present: RRR, +S1, +S2. Absent: diastolic murmur, gallop, rubs, systolic murmur - GI/Abdominal GI/Abdominal exam: Present: normal bowel sounds, soft, no peritoneal signs. Absent: distended, hepatomegaly, tenderness - Extremities Exam Extremities exam: Present: pedal edema, tenderness, warm, radial pulses palpable and symmetrical. Absent: calf tenderness, cyanotic - Neurological Exam Neurological exam: Present: alert, altered, no focal deficits, pronater drift. Absent: oriented X3, facial droop, speech deficit - Skin Skin exam: Present: dry, intact, normal color, rash, warm Internal Medicine: Result - Labs CBC & Chem 7: 06/06/17 06:17 06/06/17 06:17 Labs: Short CBC 06/06/17 Range/Units 06:17 WBC 6.2 (4.3-11.1) K/mcL Hgb 9.9 L (11.5-15.4) g/dL Hct 31.0 L (35.3-44.9) % Plt Count 109 L (140-400) K/mcL Neutrophils # 4.2 (1.6-8.9) K/mcL BMP 06/06/17 06:17 Sodium 139 Potassium 3.4 L Chloride 104 Carbon Dioxide 27 BUN 20 Creatinine 1.20 H Glucose 95 Calcium 8.3 L - ABG Interpretation ABG results: PT/INR, D-dimer PT 12.7 Seconds (9.4-12.1) H 06/03/17 15:40 - Impressions Impressions KUB X-Ray 06/06/17 08:30 IMPRESSION: No evidence of bowel obstruction. D/ / Perry Rodriguez MD / Perry Rodriguez MD Interpreting Provider: Perry Rodriguez MD Consult Discharge Plan - Plan Referrals: Kavon Mora Jr, MD [Primary Care Provider] -
[2017-06-06] MEDS: traZODone 50 MG TABLET PO SCH (21:57)
[2017-06-06] MEDS: risperiDONE 0.25 MG TABLET PO SCH (21:57)
[2017-06-06] MEDS: Latanoprost 2.5 ML BOTTLE BOTH EYES SCH (22:03)
[2017-06-06] MEDS: Azithromycin 250 MG in D5% in Water 250 ML IVPB SCH (23:22)
[2017-06-07] MEDS: *HR* Heparin 5,000 UNIT/ML VIAL SQ SCH ×2 (06:24→17:36)
[2017-06-07] MEDS ORDERED: Metoprolol XL (24 HR) Succ 25 MG TAB.ER.24H PO SCH (09:00)
[2017-06-07] MEDS: Metoprolol XL (24 HR) Succ 25 MG TAB.ER.24H PO SCH (10:56)
[2017-06-07] MEDS: Aspirin 81 MG TAB.CHEW PO SCH (10:58)
[2017-06-07] MEDS: Multivit/Ca/Min/Fe/FA 1 TAB TABLET PO SCH (10:58)
[2017-06-07] MEDS: Cholecalciferol (D-3) 1,000 UNIT TABLET PO SCH (10:58)
[2017-06-07] MEDS: Furosemide 20 MG/2 ML VIAL IVP SCH ×2 (10:58→17:36)
[2017-06-07] MEDS: Fluticasone Propionate Nasal 50 MCG/SPRAY BOTTLE NS SCH (11:05)
--- NOTE | 2017-06-07 18:34 | Internal Med Progress Note ---
Date of Encounter: 06/07/17 Time of Encounter: 18:29 - Assessment and plan (1) CHF exacerbation Current Visit: Yes Status: Acute Qualifiers: Congestive heart failure type: diastolic Qualified Code(s): I50.33 - Acute on chronic diastolic (congestive) heart failure (2) Pneumonia Current Visit: Yes Status: Acute Qualifiers: Pneumonia type: due to unspecified organism Laterality: left Lung location: lower lobe of lung Qualified Code(s): J18.1 - Lobar pneumonia, unspecified organism (3) COPD exacerbation Current Visit: Yes Status: Acute (4) Atrial fibrillation Current Visit: Yes Status: Chronic Qualifiers: Atrial fibrillation type: unspecified Qualified Code(s): I48.91 - Unspecified atrial fibrillation (5) Hypertension Current Visit: Yes Status: Chronic Qualifiers: Hypertension type: essential hypertension Qualified Code(s): I10 - Essential (primary) hypertension (6) History of aortic valve replacement with bioprosthetic valve Current Visit: Yes Status: Chronic - Subjective Interval history: Mr. Margret Handy is an 86-year-old female admitted for acute exacerbation of CHF and right-sided pneumonia. Patient to this point was seen by Nadine Lambert and I will be taking over care from today. She has been started on IV Zithromax and Rocephin. She has been tried to be diuresed modestly to this point. Patient has chronic kidney disease stage III. Slight bump in creatinine noted. Echo shows LVEF of 60%, mild concentric LV hypertrophy, mild L fee DD, atypical septal motion consistent with bundle branch block, severely dilated left atrium, bioprosthetic aortic valve not well visualized, moderate aortic regurgitation and significant prosthetic aortic stenosis. Moderate MR, moderate TR, overall findings similar to prior report from November,. BNP is also elevated at 1668 on admission. Troponins are negative 3. Patient is still symptomatic. It was noted that she has bio prosthetic aortic valve which is only malfunctioning at this point as there is a gradient as well as moderate mitral regurg. I think it will be acceptable if her creatinine race slightly in an effort to completely diurese her because this could be very well the main reason she is a still quite symptomatic. Her pleural effusion is quite a small and not suitable for thoracentesis. Since her as she is afebrile and her white count is normal I think we can leave her at current antibiotic regimen. Patient has chronic atrial fibrillation which is rate controlled. She is currently not on anticoagulation for her atrial fibrillation. She also has some history of COPD and currently on nebulizer treatment. I think it would be reasonable while she is symptomatic to add some IV steroids while she has right lung and infection. Follow CBC and CMP on daily basis. Her left forearm is swollen. Neurovascular status is stable. No IV line in that extremity. Will get Doppler ultrasound. - Constitutional Vitals: Temp Pulse Resp BP Pulse Ox 98 F 52 14 126/52 95 06/07/17 15:30 06/07/17 15:30 06/07/17 15:30 06/07/17 15:30 06/07/17 15:30 General appearance: Present: cooperative, A&O X 1, mild distress, pleasant, underweight - Head Head exam: Present: atraumatic, normocephalic - Eye Eye exam: Present: PERRL, conjuntiva pink, sclera anicteric Pupils: Present: PERRL - Neck Neck exam general surgery: Present: supple, trachea midline. Absent: lymphadenopathy - Respiratory Respiratory exam: Present: decreased breath sounds. Absent: accessory muscle use, rales, rhonchi, wheezes - Cardiovascular Cardiovascular exam: Present: irregular rhythm, +S1, +S2. Absent: diastolic murmur, gallop, rubs, systolic murmur - GI/Abdominal GI/Abdominal exam: Present: normal bowel sounds, soft, no peritoneal signs. Absent: distended, tenderness - Extremities Exam Extremities exam: Present: pedal edema, warm, radial pulses palpable and symmetrical. Absent: calf tenderness, cyanotic - Neurological Exam Neurological exam: Present: CN II-XII intact, oriented X3, no focal deficits. Absent: pronater drift, facial droop, speech deficit - Skin Skin exam: Present: dry, intact Internal Medicine: Result - Labs CBC & Chem 7: 06/06/17 06:17 06/06/17 06:17 - ABG Interpretation ABG results: PT/INR, D-dimer PT 12.7 Seconds (9.4-12.1) H 06/03/17 15:40 Consult Discharge Plan - Plan Referrals: Kavon Mora Jr, MD [Primary Care Provider] -
[2017-06-07] MEDS: risperiDONE 0.25 MG TABLET PO SCH (20:54)
[2017-06-07] MEDS: Furosemide 40 MG/4 ML VIAL IVP SCH (20:54)
[2017-06-07] MEDS: traZODone 50 MG TABLET PO SCH (20:54)
[2017-06-07] MEDS: Latanoprost 2.5 ML BOTTLE BOTH EYES SCH (20:55)
[2017-06-08] MEDS: Azithromycin 250 MG in D5% in Water 250 ML IVPB SCH (01:12)
[2017-06-08 01:46] LABS: Basophils % 0.7 %; Eosinophils # 0.3 K/mcL (0.0-0.6); Eosinophils % 4.8 %; Hematocrit 30.8 % (35.3-44.9); Hemoglobin 9.7 g/dL (11.5-15.4); Immature Granulocytes % 0.5 % (0-4); Lymphocytes % 16.4 %; Mean Corpuscular HGB Conc 31.5 g/dL (31.6-35.5); Mean Corpuscular Hemoglobin 30.2 pg (28.0-33.3); Mean Platelet Volume 11.7 fL (9.4-12.4); Monocytes # 0.8 K/mcL (0.0-1.3); Monocytes % 13.9 %; Neutrophils # 3.8 K/mcL (1.6-8.9); Platelet Count 116 K/mcL (140-400); Red Blood Count 3.21 M/mcL (3.82-4.97); Red Cell Distribution Width 15.7 % (11.5-14.5); Segmented Neutrophils % 63.7 %
[2017-06-08 02:01] LABS: Albumin 2.8 g/dL (3.5-5.0); Albumin/Globulin Ratio 0.9 (1.1-2.2); Bilirubin,Total 0.7 mg/dL (0.2-1.2); Calcium 7.9 mg/dL (8.6-10.8); Globulin 3.1 g/dL (2.4-3.5); Magnesium 2.1 mg/dL (1.6-2.6); Potassium 3.7 mEq/L (3.5-4.5); Total Protein 5.9 g/dL (6.0-8.3)
[2017-06-08] MEDS: *HR* Heparin 5,000 UNIT/ML VIAL SQ SCH ×2 (03:59→18:18)
[2017-06-08] MEDS: Furosemide 40 MG/4 ML VIAL IVP SCH ×2 (10:27→22:52)
[2017-06-08] MEDS: Cholecalciferol (D-3) 1,000 UNIT TABLET PO SCH (10:27)
[2017-06-08] MEDS: Aspirin 81 MG TAB.CHEW PO SCH (10:27)
[2017-06-08] MEDS: Multivit/Ca/Min/Fe/FA 1 TAB TABLET PO SCH (10:27)
[2017-06-08] MEDS: Fluticasone Propionate Nasal 50 MCG/SPRAY BOTTLE NS SCH (10:28)
--- NOTE | 2017-06-08 10:37 | Event Note ---
Date of Encounter: 06/08/17 Time of Encounter: 10:30 - Cardiology Event Note Reviewed ECG's and telemetry strips reviewed with Dr. Ricardo Copeland--2nd degree, Mayi type 1 Justa. Of note, patient was asleep and occurred during nocturnal hours. Will stop Toprol XL. No indication for PPM. No further testing recommended from Cardiology standpoint.
--- NOTE | 2017-06-08 13:55 | Internal Med Progress Note ---
Date of Encounter: 06/08/17 Time of Encounter: 13:51 - Assessment and plan (1) CHF exacerbation Current Visit: Yes Status: Acute Qualifiers: Congestive heart failure type: diastolic Qualified Code(s): I50.33 - Acute on chronic diastolic (congestive) heart failure (2) Pneumonia Current Visit: Yes Status: Acute Qualifiers: Pneumonia type: due to unspecified organism Laterality: left Lung location: lower lobe of lung Qualified Code(s): J18.1 - Lobar pneumonia, unspecified organism (3) COPD exacerbation Current Visit: Yes Status: Acute (4) Atrial fibrillation Current Visit: Yes Status: Chronic Qualifiers: Atrial fibrillation type: unspecified Qualified Code(s): I48.91 - Unspecified atrial fibrillation (5) Hypertension Current Visit: Yes Status: Chronic Qualifiers: Hypertension type: essential hypertension Qualified Code(s): I10 - Essential (primary) hypertension (6) History of aortic valve replacement with bioprosthetic valve Current Visit: Yes Status: Chronic - Subjective Interval history: Mr. Margret Handy is an 86-year-old female admitted for acute exacerbation of CHF and right-sided pneumonia. Patient to this point was seen by Nadine Lambert and I will be taking over care from today. She has been started on IV Zithromax and Rocephin. She has been tried to be diuresed modestly to this point. Patient has chronic kidney disease stage III. Slight bump in creatinine noted. Echo shows LVEF of 60%, mild concentric LV hypertrophy, mild L fee DD, atypical septal motion consistent with bundle branch block, severely dilated left atrium, bioprosthetic aortic valve not well visualized, moderate aortic regurgitation and significant prosthetic aortic stenosis. Moderate MR, moderate TR, overall findings similar to prior report from November,. BNP is also elevated at 1668 on admission. Troponins are negative 3. Patient is still symptomatic. It was noted that she has bio prosthetic aortic valve which is only malfunctioning at this point as there is a gradient as well as moderate mitral regurg. I think it will be acceptable if her creatinine race slightly in an effort to completely diurese her because this could be very well the main reason she is a still quite symptomatic. Her pleural effusion is quite a small and not suitable for thoracentesis. Since her as she is afebrile and her white count is normal I think we can leave her at current antibiotic regimen. Patient has chronic atrial fibrillation which is rate controlled. She is currently not on anticoagulation for her atrial fibrillation. She also has some history of COPD and currently on nebulizer treatment. I think it would be reasonable while she is symptomatic to add some IV steroids while she has right lung and infection. Follow CBC and CMP on daily basis. Her left forearm is swollen. Neurovascular status is stable. No IV line in that extremity. Will get Doppler ultrasound. 06/08 Patient is DNR DNI comfort care. This morning developed Mobitz type I second- degree bradycardia. Cardiology has seen her and decided to DC beta blockers. She seems to be breathing much better after IV aggressively diuresed her. Her recent echocardiogram showed LV ejection fraction about 60% with moderate prostatic aortic valve regurgitation as well as moderate mitral and severe tricuspid regurgitation and moderate pulmonary hypertension with right ventricle pressure 51. Her chronic atrial fibrillation is rate controlled and she is not on anticoagulation. Cardiology is planning no further workup for her bradycardia and evaluation for her aortic valve will be left to her humidifier operator is outpatient. She is on Rocephin and Zithromax for her left lower lobe pneumonia. Her COPD is stable with nebulizers. Her renal function had stabilized while she is known to have CKD stage III. If heart rate remains stable then she can be discharged tomorrow - Constitutional Vitals: Temp Pulse Resp BP Pulse Ox 97.8 F 50 17 122/56 97 06/08/17 11:08 06/08/17 11:08 06/08/17 11:08 06/08/17 11:08 06/08/17 11:08 General appearance: Present: cooperative, A&O X 1, mild distress, pleasant, underweight - Head Head exam: Present: atraumatic, normocephalic - Eye Eye exam: Present: PERRL, conjuntiva pink, sclera anicteric Pupils: Present: PERRL - Neck Neck exam general surgery: Present: supple, trachea midline. Absent: lymphadenopathy - Respiratory Respiratory exam: Present: CTAB. Absent: accessory muscle use, rales, rhonchi, wheezes - Cardiovascular Cardiovascular exam: Present: RRR, +S1, +S2. Absent: diastolic murmur, gallop, rubs, systolic murmur - GI/Abdominal GI/Abdominal exam: Present: normal bowel sounds, soft, no peritoneal signs. Absent: distended, tenderness - Extremities Exam Extremities exam: Present: warm, radial pulses palpable and symmetrical. Absent : calf tenderness, cyanotic, pedal edema - Neurological Exam Neurological exam: Present: CN II-XII intact, oriented X3, no focal deficits. Absent: pronater drift, facial droop, speech deficit - Skin Skin exam: Present: dry, intact Internal Medicine: Result - Labs CBC & Chem 7: 06/08/17 01:30 06/08/17 01:30 Labs: Short CBC 06/08/17 Range/Units 01:30 WBC 6.0 (4.3-11.1) K/mcL Hgb 9.7 L (11.5-15.4) g/dL Hct 30.8 L (35.3-44.9) % Plt Count 116 L (140-400) K/mcL Neutrophils # 3.8 (1.6-8.9) K/mcL BMP 06/08/17 01:30 Sodium 137 Potassium 3.7 Chloride 102 Carbon Dioxide 29 BUN 24 H Creatinine 1.19 H Glucose 91 Calcium 7.9 L Liver Function 06/08/17 Range/Units 01:30 Total Bilirubin 0.7 (0.2-1.2) mg/dL AST 23 (5-34) Units/L ALT 19 (0-55) Units/L Alkaline Phosphatase 65 (38-126) Units/L Albumin 2.8 L (3.5-5.0) g/dL - ABG Interpretation ABG results: PT/INR, D-dimer PT 12.7 Seconds (9.4-12.1) H 06/03/17 15:40 Consult Discharge Plan - Plan Referrals: Kavon Mora Jr, MD [Primary Care Provider] -
[2017-06-08] MEDS ORDERED: Azithromycin 250 MG TABLET PO SCH (21:00)
[2017-06-08] MEDS: risperiDONE 0.25 MG TABLET PO SCH (22:51)
[2017-06-08] MEDS: traZODone 50 MG TABLET PO SCH (22:53)
[2017-06-08] MEDS: Latanoprost 2.5 ML BOTTLE BOTH EYES SCH (22:53)
[2017-06-09] MEDS: *HR* Heparin 5,000 UNIT/ML VIAL SQ SCH (03:26)
[2017-06-09 05:10] LABS: Basophils % 0.7 %; Eosinophils # 0.3 K/mcL (0.0-0.6); Eosinophils % 5.1 %; Hematocrit 33.3 % (35.3-44.9); Hemoglobin 10.5 g/dL (11.5-15.4); Immature Granulocytes % 0.7 % (0-4); Lymphocytes # 0.9 K/mcL (0.6-4.6); Lymphocytes % 15.2 %; Mean Corpuscular HGB Conc 31.5 g/dL (31.6-35.5); Mean Corpuscular Hemoglobin 30.8 pg (28.0-33.3); Mean Corpuscular Volume 97.7 fL (83.0-100.0); Mean Platelet Volume 11.8 fL (9.4-12.4); Monocytes # 0.8 K/mcL (0.0-1.3); Monocytes % 12.4 %; Platelet Count 119 K/mcL (140-400); Red Blood Count 3.41 M/mcL (3.82-4.97); Red Cell Distribution Width 15.6 % (11.5-14.5); Segmented Neutrophils % 65.9 %
[2017-06-09 05:24] LABS: Albumin 2.9 g/dL (3.5-5.0); Albumin/Globulin Ratio 0.8 (1.1-2.2); Bilirubin,Total 0.7 mg/dL (0.2-1.2); Calcium 8.2 mg/dL (8.6-10.8); Globulin 3.5 g/dL (2.4-3.5); Magnesium 2.4 mg/dL (1.6-2.6); Total Protein 6.4 g/dL (6.0-8.3)
[2017-06-09 05:35] LABS: Potassium 4.9 mEq/L (3.5-4.5)
--- NOTE | 2017-06-09 08:54 | Discharge Summary ---
Date of Encounter: 06/09/17 Time of Encounter: 08:45 - Discharge Diagnosis (1) CHF exacerbation Priority: Primary Status: Acute Qualifiers: Congestive heart failure type: diastolic Qualified Code(s): I50.33 - Acute on chronic diastolic (congestive) heart failure (2) Pneumonia Priority: Primary Status: Acute Qualifiers: Pneumonia type: due to unspecified organism Laterality: left Lung location: lower lobe of lung Qualified Code(s): J18.1 - Lobar pneumonia, unspecified organism (3) COPD exacerbation Priority: Secondary Status: Acute (4) Atrial fibrillation Priority: Secondary Status: Chronic Qualifiers: Atrial fibrillation type: unspecified Qualified Code(s): I48.91 - Unspecified atrial fibrillation (5) Hypertension Priority: Secondary Status: Chronic Qualifiers: Hypertension type: essential hypertension Qualified Code(s): I10 - Essential (primary) hypertension (6) History of aortic valve replacement with bioprosthetic valve Priority: Secondary Status: Chronic - Discharge Medications Home Medications: Fluticasone Propionate Nasal [Flonase] 1 spray NS DAILY 05/11/15 [History] Aspirin 81 mg PO DAILY 06/03/17 [History] Bimatoprost [Lumigan] 1 drop BOTH EYES HS 06/03/17 [History] Cholecalciferol (D-3) [Vitamin D] 1,000 unit PO DAILY 06/03/17 [History] Docusate [Colace] 100 mg PO HS 06/03/17 [History] GuaiFENesin/Dextromethorphan [Tussin Dm Syrup] 7.5 ml PO Q6H PRN 06/03/17 [ History] Multivitamin-Min/Iron/FA/Vit K [Multi-Day Plus Minerals Tablet] 1 each PO DAILY 06/03/17 [History] Omeprazole [PriLOSEC] 20 mg PO DAILY 06/03/17 [History] RisperiDONE [Risperdal] 0.5 mg PO HS 06/03/17 [History] Simvastatin [Zocor] 10 mg PO HS 06/03/17 [History] Azithromycin [Zithromax] 250 mg PO HS tab 06/09/17 [Rx] Furosemide [Lasix] 40 mg PO BID #0 06/09/17 [Rx] Heparin 5,000 unit SQ Q12HR vial 06/09/17 [Rx] Ipratropium/Albuterol Neb [Duoneb] 3 ml IH QID PRN inh 06/09/17 [Rx] Latanoprost [Xalatan] 1 drop BOTH EYES HS bottle 06/09/17 [Rx] Allergies/Adverse Reactions: 3 Allergy/AdvReac Type Severity Reaction Status Date / Time Sulfa (Sulfonamide Allergy See Verified 05/16/15 15:51 Antibiotics) Comments Procedures/tests Complete & Pending: Procedures Performed prior 72 hours Category Date Time Status ECG 12 lead ECG [ECG] Routine Y 06/08/17 00:45 Completed EV venous imaging UE LT Routine Y 06/08/17 18:21 Completed Date of admission: 06/03/17 20:09 Primary care physician: Kavon Mora Jr, MD Consults: 06/04/17 12:40 Consult to Occupational Therapy [CONS] Routine Comment: Evaluate, develop and implement POC Reason for Consult: may need home health or ECF. lives in assisted living. Consult to Physical Therapy [CONS] Routine Comment: Evaluate, develop and implement POC Reason for Consult: may need home health or ECF. currently lives in assisted living. 06/06/17 07:54 Consult to Cardiology [CONS] Routine Comment: Consulting Provider: Cait Benitez Reason for Consult: aortic stenosis, prosthetic valve Call Completed: Yes 06/08/17 04:27 Consult to Cardiology [CONS] Routine Comment: Consulting Provider: Cait Benitez Reason for Consult: Developed first degree block throughout the night Call Completed: No Discharging clinician: Michelle Draper Anticipated date of discharge: 06/09/17 - Patient Status Disposition: Transfer SNF Condition: Good Overall status at discharge: patient is progressing back to baseline - Discharge Instructions Follow Up With: Kavon Mora Jr, MD [Primary Care Provider] - - Diet and Activity Activity: as per physical therapy Diet: advance to your usual diet Hospital course: Mr. Margret Handy is an 86-year-old female admitted for acute exacerbation of CHF and right-sided pneumonia with a small pleural effusion though Her pleural effusion is quite a small and not suitable for thoracentesis. She has been started on IV Zithromax and Rocephin. She responded well and remained afebrile and white count is normal. She also has history of COPD and currently on nebulizer treatment. We gave her IV steroids during this admission and will switch her to steroid taper upon discharge. Left forearm was noted elevated and Doppler ultrasound was negative for DVT. Patient was diuresed aggressively and with that she improved symptomatically. However she has underlying chronic kidney disease is stage III which is slightly worsened as expected during diurese his. Now she can be switched to oral Lasix. Echo shows LVEF of 60%, mild concentric LV hypertrophy, mild L fee DD, atypical septal motion consistent with bundle branch block, severely dilated left atrium, bioprosthetic aortic valve not well visualized, moderate aortic regurgitation and significant prosthetic aortic stenosis. Moderate MR, moderate TR, overall findings similar to prior report from November,. BNP is also elevated at 1668 on admission. It was noted that she has bio prosthetic aortic valve which is malfunctioning at this point as there is a gradient as well as moderate mitral regurg.Patient has chronic atrial fibrillation which is rate controlled. She is currently not on anticoagulation for her atrial fibrillation. Just before discharge patient developed Mobitz type I second-degree bradycardia. Cardiology recommended to DC beta blockers. Cardiology is planning no further workup for her bradycardia and evaluation for her aortic valve will be left to her test rack operator is outpatient. - Time Spent with Patient Total time spent providing and/or coordinating discharge services: Greater than 30 minutes - Constitutional Vitals: Temp Pulse Resp BP Pulse Ox 98.0 F 57 15 154/53 98 06/09/17 07:40 06/09/17 07:40 06/09/17 07:40 06/09/17 07:40 06/09/17 07:40 General appearance: Present: cooperative, A&O X 1, mild distress, pleasant, underweight - Head Head exam: Present: atraumatic, normocephalic - Eye Eye exam: Present: PERRL, conjuntiva pink, sclera anicteric Pupils: Present: PERRL - Neck Neck exam general surgery: Present: supple, trachea midline. Absent: lymphadenopathy - Respiratory Respiratory exam: Present: CTAB. Absent: accessory muscle use, rales, rhonchi, wheezes - Cardiovascular Cardiovascular exam: Present: RRR, +S1, +S2. Absent: diastolic murmur, gallop, rubs, systolic murmur - GI/Abdominal GI/Abdominal exam: Present: normal bowel sounds, soft, no peritoneal signs. Absent: distended, tenderness - Extremities Exam Extremities exam: Present: warm, radial pulses palpable and symmetrical. Absent : calf tenderness, cyanotic, pedal edema - Neurological Exam Neurological exam: Present: CN II-XII intact, oriented X3, no focal deficits. Absent: pronater drift, facial droop, speech deficit - Skin Skin exam: Present: dry, intact
[2017-06-09] MEDS: Aspirin 81 MG TAB.CHEW PO SCH (09:02)
[2017-06-09] MEDS: Cholecalciferol (D-3) 1,000 UNIT TABLET PO SCH (09:02)
[2017-06-09] MEDS: Furosemide 40 MG/4 ML VIAL IVP SCH (09:02)
[2017-06-09] MEDS: Multivit/Ca/Min/Fe/FA 1 TAB TABLET PO SCH (09:02)
[2017-06-09] MEDS: Fluticasone Propionate Nasal 50 MCG/SPRAY BOTTLE NS SCH (09:03)
--- NOTE | 2017-06-09 09:05 | Physician Discharge Referral ---
ExtendedCare Referral Info Transfer To: SNF Provider in Charge: hernan Provider in Charge after Transfer: PCP Institutional Level of Care: Skilled - Diagnosis (1) CHF exacerbation Status: Acute (2) Pneumonia Status: Acute (3) COPD exacerbation Status: Acute (4) Atrial fibrillation Status: Chronic (5) Hypertension Status: Chronic (6) History of aortic valve replacement with bioprosthetic valve Status: Chronic - Transfer Medications Home Medications: Fluticasone Propionate Nasal [Flonase] 1 spray NS DAILY 05/11/15 [History] Aspirin 81 mg PO DAILY 06/03/17 [History] Bimatoprost [Lumigan] 1 drop BOTH EYES HS 06/03/17 [History] Cholecalciferol (D-3) [Vitamin D] 1,000 unit PO DAILY 06/03/17 [History] Docusate [Colace] 100 mg PO HS 06/03/17 [History] GuaiFENesin/Dextromethorphan [Tussin Dm Syrup] 7.5 ml PO Q6H PRN 06/03/17 [ History] Multivitamin-Min/Iron/FA/Vit K [Multi-Day Plus Minerals Tablet] 1 each PO DAILY 06/03/17 [History] Omeprazole [PriLOSEC] 20 mg PO DAILY 06/03/17 [History] RisperiDONE [Risperdal] 0.5 mg PO HS 06/03/17 [History] Simvastatin [Zocor] 10 mg PO HS 06/03/17 [History] Azithromycin [Zithromax] 250 mg PO HS tab 06/09/17 [Rx] Furosemide [Lasix] 40 mg PO BID #0 06/09/17 [Rx] Heparin 5,000 unit SQ Q12HR vial 06/09/17 [Rx] Ipratropium/Albuterol Neb [Duoneb] 3 ml IH QID PRN inh 06/09/17 [Rx] Latanoprost [Xalatan] 1 drop BOTH EYES HS bottle 06/09/17 [Rx] Allergies/Adverse Reactions: 3 Allergy/AdvReac Type Severity Reaction Status Date / Time Sulfa (Sulfonamide Allergy See Verified 05/16/15 15:51 Antibiotics) Comments - Respiratory Orders Smoking Cessation: Smoking cessation has been advised. For more information, call the [place] Tobacco Quit Line at 9-841-QTGM-NOW. CERTIFICATION: I certify that the transfer of the above named patient to an Extended Care Facility is necessary for the continuing treatment of the diagnosis listed. The above information is true and accurate reflection of patient's current condition. Confidential - Redisclosure prohibited without a patient's written consent.
--- NOTE | 2017-06-09 13:15 | Venous Imaging Report ---
UE Venous Duplex Patient Name:Margret Woodard Order Number:[id number] Procedure Date:06/08/2017 Date:1930Age:86 yrs Gender:Female Location:[facility] Room #: 3B44 Interior Design Coordinator:Emily Henry RVT Referring MD:Michelle Draper MD Reading MD:Solis Keith MD , FACS Primary Indications:left arm edema Secondary Indications: Risk Factors Yes/No Hx of DVT No Hx of Chemotherapy No Impressions: Left upper extremity: normal superficial and deep exam. Right upper extremity: normal contralateral exam. Findings Venous Duplex Results: Right: Venous imaging of the upper extremity reveals full patency and normal vessel compressibility of the right subclavian. Doppler signals in the evaluated veins were normal. Left: Venous imaging of the upper extremity reveals full patency and normal vessel compressibility of the left jugular, left subclavian, left axillary, left brachial, left cephalic, left basilic, left radial and left ulnar. Doppler signals in the evaluated veins were normal. Prior Study: No prior study available for comparison. Upper Extremity Venous Duplex Side Vein Compress Spontaneous Flow Augment Left Jugular Normal Yes Phasic Yes Left Subclavian Normal Yes Phasic Yes Left Axillary Normal Yes Phasic Yes Left Brachial Normal Yes Phasic Yes Left Cephalic Normal Yes Phasic Yes Left Basilic Normal Yes Phasic Yes Left Radial Normal Yes Phasic Yes Left Ulnar Normal Yes Phasic Yes Right Subclavian Normal Yes Phasic Yes Updated by Solis Keith MD, FACS on 06/09/2017 1:09:30 PM Solis Keith MD electronically signed on 06/09/2017 1:09:48 PM with status of Final
[2017-06-09 15:22] VITALS: BP 135/63
--- NOTE | 2017-06-09 21:54 | Electrocardiograph Report ---
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
== END 2017-06-09 18:45 | DRG 291 ==
LOC: 3BNU 15:08 → EMEROO 15:08 → 3BNU 20:13
PROVIDERS: ADMIT Nurse Practitioner Family; ATTEND Registered Nurse

== ENCOUNTER 2017-09-15 03:41 | Inpatient (IN) ==
--- NOTE | 2017-09-15 03:57 | Emergency Department Note ---
Disposition Clinical Impression: Urinary tract infection with hematuria Qualifiers: Urinary tract infection type: site unspecified Qualified Code(s): N39.0 - Urinary tract infection, site not specified Fall Qualifiers: Encounter type: initial encounter Qualified Code(s): W19.XXXA - Unspecified fall, initial encounter Fracture of lesser trochanter of femur Qualifiers: Encounter type: initial encounter Fracture type: closed Fracture alignment: nondisplaced Laterality: right Qualified Code(s): S72.124A - Nondisplaced fracture of lesser trochanter of right femur, initial encounter for closed fracture Inferior pubic ramus fracture Qualifiers: Encounter type: initial encounter Fracture type: closed Laterality: right Qualified Code(s): S32.591A - Other specified fracture of right pubis, initial encounter for closed fracture Disposition: Admitted As Inpatient Condition: Fair General Adult HPI - General Chief complaint: ED Extremity Injury, Lower Stated complaint: R hip injury Time Seen by Provider: 09/15/17 03:43 Source: patient, EMS Mode of arrival: EMS Limitations: altered mental status Nursing Notes Reviewed: Yes Vital Signs Reviewed: Yes - History of Present Illness HPI Narrative: 86-year-old female history of atrial fibrillation on aspirin, hypertension, hyperlipidemia, dementia who presents to the ER via EMS from half-way facility due to questionable hip fracture on x-ray. EMS reports that she was found around 9 PM and the floor. The patient had an unwitnessed fall versus syncopal episode. They had an x-ray performed there with concern for an age- indeterminate hip fracture. Patient brought in for evaluation. No one seems to know if she is ambulatory at baseline. The patient has dementia and does not remember falling. She endorses bilateral hip pain worse on the right. She denies any headaches neck or back pain, chest or abdominal pain, numbness or tingling. Pt Subjective Complaint: Hip injury Onset (ago): hour(s) Location: right, lower extremity Pain Scale: 0 Improves with: nothing Worsens with: movement Associated symptoms: Reports: denies other symptoms Treatments Prior to Arrival: none - Related Data Home Medications Medication Instructions Recorded Confirmed Fluticasone Propionate Nasal 1 spray NS DAILY 05/11/15 06/03/17 [Flonase] Aspirin 81 mg PO DAILY 06/03/17 06/03/17 Bimatoprost [Lumigan] 1 drop BOTH EYES HS 06/03/17 06/03/17 Cholecalciferol (D-3) [Vitamin D] 1,000 unit PO DAILY 06/03/17 06/03/17 Docusate [Colace] 100 mg PO HS 06/03/17 06/03/17 GuaiFENesin/Dextromethorphan 7.5 ml PO Q6H PRN 06/03/17 06/03/17 [Tussin Dm Syrup] Multivitamin-Min/Iron/FA/Vit K 1 each PO DAILY 06/03/17 06/03/17 [Multi-Day Plus Minerals Tablet] Omeprazole [PriLOSEC] 20 mg PO DAILY 06/03/17 06/03/17 RisperiDONE [Risperdal] 0.5 mg PO HS 06/03/17 06/03/17 Simvastatin [Zocor] 10 mg PO HS 06/03/17 06/03/17 Previous Rx's Medication Instructions Recorded Azithromycin [Zithromax] 250 mg PO HS tab 06/09/17 Furosemide [Lasix] 40 mg PO BID #0 06/09/17 Heparin 5,000 unit SQ Q12HR vial 06/09/17 Ipratropium/Albuterol Neb [Duoneb] 3 ml IH QID PRN inh 06/09/17 Latanoprost [Xalatan] 1 drop BOTH EYES HS bottle 06/09/17 Allergies Allergy/AdvReac Type Severity Reaction Status Date / Time Sulfa (Sulfonamide Allergy See Verified 05/16/15 15:51 Antibiotics) Comments All systems ED: reviewed and negative except as stated. Cardiovascular: Denies: chest pain Respiratory: Denies: dyspnea Gastrointestinal: Denies: abdominal pain Musculoskeletal: Reports: other (Bilateral hip pain). Denies: back pain, neck pain Neurological: Denies: numbness, paresthesias Past Medical History - Past Medical History Attestation: Yes The following information was validated with the patient. Source: patient Medical history: Reports: aortic aneurysm, arthritis, cancer, CHF, dementia, GERD, glaucoma, hyperlipidemia, hypertension, malignancy, venous stasis Surgical history: Reports: other (Cardiac valve replacement, aortic aneurysm repair) Psychiatric history: Reports: no psych history - Social History Smoking Status: Never smoker Smokeless Tobacco Status: No Alcohol use: Reports: none Drug use: Reports: none Physical Exam - General Limitations: no limitations General appearance: alert, in no apparent distress - Head Head exam: atraumatic, normocephalic, normal inspection - Eye Eye exam: Present: normal appearance, EOMI - ENT ENT exam: normal exam - Neck Neck exam: Present: normal inspection, full ROM. Absent: tenderness - Chest Chest inspection: Present: normal inspection, symmetric chest wall rise. Absent : tenderness - Respiratory Respiratory exam: Present: normal lung sounds bilaterally - Cardiovascular Cardiovascular exam: Present: regular rate, normal rhythm, normal heart sounds, systolic murmur - Abdominal Exam Abdominal exam: Present: soft, Non-Tender. Absent: tenderness, distention, rigidity - Extremities Exam Extremities exam: Present: normal inspection, full ROM - Expanded Upper Extremity Exam Shoulder exam: Present: normal inspection, full ROM Arm exam: Present: normal inspection, full ROM Elbow exam: Present: normal inspection, full ROM Forearm/Wrist exam: Present: normal inspection, full ROM Hand exam: Present: normal inspection, full ROM - Expanded Lower Extremity Exam Hip/Pelvis exam: Present: normal inspection. Absent: full ROM Upper leg exam: Present: normal inspection. Absent: full ROM Knee exam: Present: normal inspection, full ROM Lower leg exam: Present: normal inspection, full ROM Ankle exam: Present: normal inspection, full ROM Foot/toe exam: Present: normal inspection, full ROM Neurovascular/Tendon exam: Absent: motor deficit, sensory deficit - Neurological Exam Neurological exam: Present: alert, other (GCS 14. Nonfocal exam with the exception of decreased range of motion of the bilateral lower extremities at the hip secondary to pain.). Absent: oriented X3 - Skin Skin exam: Present: warm, dry, intact Course Course Narrative: Patient seen and examined. History of dementia and she has no memory of the fall. X-ray reviewed with indeterminate age fracture. We will pursue a CT scan of her head and cervical spine as well as a CT of her pelvis given indeterminate nature of injury. We will also obtain an EKG and labs including troponin and urinalysis. - Consultations Consultation #1: I spoke with the on-call orthopedic surgeon Dr. Hurley. Discussed the patient's history and exam imaging and labs. He agrees to see the patient in consultation and admit to the hospitalist. Requests XR AP R hip for evaluation. Vital Signs Temperature 98.2 F 09/15/17 03:41 Pulse Rate 78 09/15/17 03:41 Respiratory Rate 16 09/15/17 03:41 Blood Pressure 134/70 09/15/17 03:41 O2 Sat by Pulse Oximetry 91 09/15/17 03:41 Temperature 98.2 F 09/15/17 03:41 Pulse Rate 71 09/15/17 04:57 Respiratory Rate 18 09/15/17 04:57 Blood Pressure 162/61 09/15/17 04:57 O2 Sat by Pulse Oximetry 100 09/15/17 04:57 Oxygen Delivery Oxygen Delivery Nasal Cannula Medical Decision Making - MDM Narrative Medical decision making narrative: 86-year-old female presents to the ER status post unwitnessed fall. Previously ambulatory unable to bear weight at the nursing facility. X-ray there showed concern for fracture. She has a history of bilateral hip replacement. She is unable to provide history here she has dementia. She does not remember the fall. EKG shows no ischemic findings. CT of the head and cervical spine are unremarkable. She has a likely acute lesser trochanteric avulsion fracture as well as a pubic rami fracture. Labs reviewed with evidence of a UTI for which she received a gram of Rocephin. Orthopedic surgery was consulted by the emergency department and will see the patient in consultation. Admitted to the hospitalist service for fracture and UTI. - Lab Data Lab results reviewed: Yes I reviewed the patient's lab results. Result diagrams: 09/15/17 04:04 09/15/17 04:04 Lab Results 09/15/17 09/15/17 09/15/17 Range/Units 04:04 04:04 04:04 WBC 15.0 H (4.3-11.1) K/mcL RBC 3.82 (3.82-4.97) M/mcL Hgb 12.2 (11.5-15.4) g/dL Hct 35.5 (35.3-44.9) % MCV 92.9 (83.0-100.0) fL MCH 31.9 (28.0-33.3) pg MCHC 34.4 (31.6-35.5) g/dL RDW 14.3 (11.5-14.5) % Plt Count 127 L (140-400) K/mcL MPV 11.2 (9.4-12.4) fL Immature Gran % 0.6 (0-4) % Seg Neutrophils % 87.2 % Lymphocytes % 4.8 % Monocytes % 6.1 % Eosinophils % 1.1 % Basophils % 0.2 % Neutrophils # 13.1 H (1.6-8.9) K/mcL Lymphocytes # 0.7 (0.6-4.6) K/mcL Monocytes # 0.9 (0.0-1.3) K/mcL Eosinophils # 0.2 (0.0-0.6) K/mcL Basophils # 0.0 (0.0-0.2) K/mcL PT 12.1 (9.4-12.1) Seconds INR 1.1 APTT 26.2 (26.0-36.0) Seconds Sodium 133 L (136-145) mEq/L Potassium 4.9 (3.5-5.1) mEq/L Chloride 101 (98-107) mEq/L Carbon Dioxide 22 L (23-29) mEq/L BUN 46 H (8-23) mg/dL Creatinine 1.70 H (0.60-1.20) mg/dL Est GFR ( Amer) 34 L (> 60) Est GFR (Non-Af Amer) 28 L (> 60) BUN/Creatinine Ratio 27 H (6-26) Glucose 147 H (70-105) mg/dL Calculated Osmolality 291 (280-300) Calcium 9.0 (8.6-10.3) mg/dL Creatine Kinase (30-223) Units/L Troponin I (< 0.04) ng/mL Urine Color (Yellow) Urine Clarity (Clear) Urine pH (5.0-8.0) pH Units Ur Specific [place] (1.010-1.025) Urine Protein (Neg-Trace) mg/dL Urine Glucose (UA) (Normal) mg/dL Urine Ketones (Negative) mg/dL Urine Blood (Negative) Urine Nitrite (Negative) Urine Bilirubin (Negative) Urine Urobilinogen (Normal) mg/dL Ur Leukocyte Esterase (Negative) Urine Microscopic RBC (0-3) per hpf Urine Microscopic WBC (0-3) per hpf Ur Squamous Epith Cells (None-Few) per lpf Urine Bacteria (None-Few) per hpf Hyaline Casts (None-Few) per lpf Ur Culture Indicated? (NO) 09/15/17 09/15/17 09/15/17 Range/Units 04:04 04:04 04:30 WBC (4.3-11.1) K/mcL RBC (3.82-4.97) M/mcL Hgb (11.5-15.4) g/dL Hct (35.3-44.9) % MCV (83.0-100.0) fL MCH (28.0-33.3) pg MCHC (31.6-35.5) g/dL RDW (11.5-14.5) % Plt Count (140-400) K/mcL MPV (9.4-12.4) fL Immature Gran % (0-4) % Seg Neutrophils % % Lymphocytes % % Monocytes % % Eosinophils % % Basophils % % Neutrophils # (1.6-8.9) K/mcL Lymphocytes # (0.6-4.6) K/mcL Monocytes # (0.0-1.3) K/mcL Eosinophils # (0.0-0.6) K/mcL Basophils # (0.0-0.2) K/mcL PT (9.4-12.1) Seconds INR APTT (26.0-36.0) Seconds Sodium (136-145) mEq/L Potassium (3.5-5.1) mEq/L Chloride (98-107) mEq/L Carbon Dioxide (23-29) mEq/L BUN (8-23) mg/dL Creatinine (0.60-1.20) mg/dL Est GFR ( Amer) (> 60) Est GFR (Non-Af Amer) (> 60) BUN/Creatinine Ratio (6-26) Glucose (70-105) mg/dL Calculated Osmolality (280-300) Calcium (8.6-10.3) mg/dL Creatine Kinase 62 (30-223) Units/L Troponin I < 0.03 (< 0.04) ng/mL Urine Color Yellow (Yellow) Urine Clarity Cloudy A (Clear) Urine pH 5.5 (5.0-8.0) pH Units Ur Specific [place] 1.019 (1.010-1.025) Urine Protein Trace (Neg-Trace) mg/dL Urine Glucose (UA) Normal (Normal) mg/dL Urine Ketones Negative (Negative) mg/dL Urine Blood Small H (Negative) Urine Nitrite Negative (Negative) Urine Bilirubin Negative (Negative) Urine Urobilinogen Normal (Normal) mg/dL Ur Leukocyte Esterase Large H (Negative) Urine Microscopic RBC 5-15 H (0-3) per hpf Urine Microscopic WBC TNTC H (0-3) per hpf Ur Squamous Epith Cells Moderate H (None-Few) per lpf Urine Bacteria Few (None-Few) per hpf Hyaline Casts None Seen (None-Few) per lpf Ur Culture Indicated? YES A (NO) - Radiology Data Radiology results reviewed: Yes I reviewed the patient's radiology results. Cervical Spine CT 09/15/17 03:49 IMPRESSION: No acute abnormality of the cervical spine. D/ / Gale Reid MD / Gale Reid MD Interpreting Provider: Gale Reid MD Head CT 09/15/17 03:49 IMPRESSION: No acute intracranial abnormality. D/ / Aaron Evans MD / Aaron Evans MD Interpreting Provider: Aaron Evans MD Pelvis CT 09/15/17 03:50 IMPRESSION: 1. Limited study. 2. The right lesser trochanter avulsion fracture is probably acute. 3. Right inferior pubic ramus fracture is likely either acute or subacute. D/ / Aaron Evans MD / Aaron Evans MD Interpreting Provider: Aaron Evans MD Chest X-Ray 09/15/17 03:59 IMPRESSION: No acute disease. D/ / Aaron Evans MD / Aaron Evans MD Interpreting Provider: Aaron Evans MD - EKG Data EKG #1 EKG attestation: Yes I reviewed and interpreted this EKG. EKG results narrative: EKG demonstrates sinus rhythm with first-degree AV block with a rate of 70 bpm. Right axis deviation. Prolonged MS interval of 222. Prolonged QRS duration of 141. Poor R-wave progression. Interventricular conduction delay. No gross ST elevations or depressions. No acute ischemic findings. No significant changes from previous EKG dated 06/08/17. Chitra - Chitra Situation: Demographics, MOA Background: Presenting Complaint, Relevant PMH, Meds, & Allergies Assessment: Course and respsone to treatment, Exam Concerns, Patient/Family Expectation, Pertinant Lab Results Recommendation: Barrier(s) to disposition, Recommendation based on pending studies, treatments, or consults Chitra Report Given to: Dr. Cecelia Buenrostro Repor Time: 05:24
[2017-09-15 04:16] LABS: Basophils % 0.2 %; Eosinophils # 0.2 K/mcL (0.0-0.6); Eosinophils % 1.1 %; Hematocrit 35.5 % (35.3-44.9); Hemoglobin 12.2 g/dL (11.5-15.4); Immature Granulocytes % 0.6 % (0-4); Lymphocytes # 0.7 K/mcL (0.6-4.6); Lymphocytes % 4.8 %; Mean Corpuscular HGB Conc 34.4 g/dL (31.6-35.5); Mean Corpuscular Hemoglobin 31.9 pg (28.0-33.3); Mean Corpuscular Volume 92.9 fL (83.0-100.0); Mean Platelet Volume 11.2 fL (9.4-12.4); Monocytes # 0.9 K/mcL (0.0-1.3); Monocytes % 6.1 %; Neutrophils # 13.1 K/mcL (1.6-8.9); Platelet Count 127 K/mcL (140-400); Red Blood Count 3.82 M/mcL (3.82-4.97); Red Cell Distribution Width 14.3 % (11.5-14.5); Segmented Neutrophils % 87.2 %
[2017-09-15 04:21] LABS: INR 1.1; Prothrombin Time 12.1 Seconds (9.4-12.1)
--- NOTE | 2017-09-15 04:21 | Emergency Department Note ---
START Narrative - START START: I examined this patient and my medical decision-making was reviewed with the Resident Physician. I agree with the documented findings, disposition and treatment plan as described except to the extent set forth below. 86 year old female from halfway facility s/p fall mechanical vs syncopal with increased right hip pain. and an indeterminate hip XR for possible fractures. We will do a cardiopulmonary wokrup secondary to history of afib and anticogulation. WE will do syncope workup and rule out fracture and likely admit to medicine.
[2017-09-15 04:24] LABS: Activated Partial Thrombo Time 26.2 Seconds (26.0-36.0)
[2017-09-15 04:37] LABS: Bilirubin,Urine Negative (Negative); Blood,Urine Small (Negative); Clarity,Urine Cloudy (Clear); Color,Urine Yellow (Yellow); Glucose,Urine (UA) Normal (Normal); Ketones,Urine Negative (Negative); Leukocyte Esterase,Urine Large (Negative); Nitrite,Urine Negative (Negative); PH,Urine 5.5 pH Units (5.0-8.0); Protein,Urine Trace mg/dL (Neg-Trace); Specific Gravity,Urine 1.019 (1.010-1.025); Urobilinogen,Urine Normal (Normal)
[2017-09-15 04:39] LABS: Bacteria,Urine Few per hpf (None-Few); Hyaline Casts,Urine None Seen per lpf (None-Few); Squamous Epithelial Cell,Urine Moderate per lpf (None-Few); WBC,Urine TNTC per hpf (0-3)
[2017-09-15] MEDS ORDERED: cefTRIAXone 1,000 MG in Water for inj. (sterile) 20 ML 10 ML IVP ONE (04:54)
[2017-09-15 05:02] LABS: Potassium 4.9 mEq/L (3.5-5.1)
[2017-09-15] MEDS ORDERED: *HR* HYDROmorphone (PF) 1 MG/ML SYRINGE IVP PRN ×2 (08:37→10:33)
[2017-09-15] MEDS ORDERED: Naloxone 0.4 MG/ML INJ IVP PRN ×2 (08:37→10:09)
[2017-09-15] MEDS ORDERED: *HR* HYDROcodone/Acet 5/325 mg TABLET PO PRN (08:37)
[2017-09-15] MEDS ORDERED: Acetaminophen 325 MG TABLET PO PRN ×2 (08:37→10:09)
--- NOTE | 2017-09-15 09:32 | Internal Med History&Physical ---
Date of Encounter: 09/16/17 Time of Encounter: 09:32 Assessment and Plan (1) Fracture of lesser trochanter of femur Current visit: Yes Status: Acute Ortho was consulted, they stated that the patient is nonoperative Qualifiers: Encounter type: initial encounter Fracture type: closed Fracture alignment: nondisplaced Laterality: right Qualified Code(s): S72.124A - Nondisplaced fracture of lesser trochanter of right femur, initial encounter for closed fracture (2) Urinary tract infection with hematuria Current visit: Yes Status: Acute Urinalysis is suggestive of urinary tract infection, we will start the patient on Rocephin, obtain culture and sensitivity and adjust antibiotic regimen accordingly. Qualifiers: Urinary tract infection type: site unspecified Qualified Code(s): N39.0 - Urinary tract infection, site not specified; R31.9 - Hematuria, unspecified; R31.9 - Hematuria, unspecified (3) Atrial fibrillation Current visit: No Status: Chronic Rate is controlled we will continue home meds. Qualifiers: Atrial fibrillation type: unspecified Qualified Code(s): I48.91 - Unspecified atrial fibrillation (4) Hypertension Current visit: No Status: Chronic We will continue home medication Qualifiers: Hypertension type: essential hypertension Qualified Code(s): I10 - Essential (primary) hypertension (5) History of aortic valve replacement with bioprosthetic valve Current visit: No Status: Chronic (6) DVT prophylaxis Current visit: No Status: Acute Will start patient on heparin 5000 3 times a day. Internal Medicine - H&P: HPI Chief complaint: Hip pain Admitted From: Home Plans for Post Hospital Care: Home History of present illness: 86-year-old female history of atrial fibrillation on aspirin, hypertension, hyperlipidemia, dementia who presents [facility] the ER via EMS from [facility] due to questionable hip fracture on x-ray. The patient has dementia and not provide any history. She is complaining of bilateral hip pain worse on the right. she sustained a fall and had an x-ray performed there with concern for an age-indeterminate hip fracture. [facility]ho was consulted and she was admitted for further evaluation and management Past Med Surg Social Fam HX - Past Medical History Medical history: aortic aneurysm, arthritis, cancer, CHF, dementia, GERD, glaucoma, hyperlipidemia, hypertension, malignancy, venous stasis Psychiatric history: no psych history - Past Surgical History Surgical History: hysterectomy, other - Social History Smoking Status: Never smoker Smokeless Tobacco Status: No Alcohol use: occasionally Drug use: none - Family History Father Living Status: Age at : 70 Cause of : [place] Hx Family Cardiac Disorders: Yes Mother Living Status: Age at : 98 Cause of : dementia Hx Family Cardiac Disorders: No Hx Family Respiratory Disorders: No Hx Family Cancer: Yes Hx Family GI Disorders: No Hx Family Endocrine Disorder: No Hx Family Neuromuscular Disorders: No Hx Family Neurologic Disorders: No Hx Family HEENT Disorders: No Hx Family Autoimmune Disorders: No Internal Medicine - H&P: Meds Aspirin 81 mg PO DAILY 06/03/17 [History] Cholecalciferol (D-3) [Vitamin D] 1,000 unit PO DAILY 06/03/17 [History] Docusate [Colace] 100 mg PO HS 06/03/17 [History] Multivitamin-Min/Iron/FA/Vit K [Multi-Day Plus Minerals Tablet] 1 each PO DAILY 06/03/17 [History] Omeprazole [PriLOSEC] 20 mg PO DAILY 06/03/17 [History] Simvastatin [Zocor] 10 mg PO HS 06/03/17 [History] Furosemide [Lasix] 40 mg PO BID #0 06/09/17 [Rx] Ipratropium/Albuterol Neb [Duoneb] 3 ml IH QID PRN inh 06/09/17 [Rx] Latanoprost [Xalatan] 1 drop BOTH EYES HS bottle 06/09/17 [Rx] Potassium Chloride [Klor-Con 10] 10 meq PO BID 09/15/17 [History] 3 Allergy/AdvReac Type Severity Reaction Status Date / Time Sulfa (Sulfonamide Allergy See Verified 05/16/15 15:51 Antibiotics) Comments ROS unobtainable: due to mental status All Systems PM: A 10-system review of systems was performed and is negative for pertinent findings except as documented above in the HPI. - Constitutional Vitals: Temp Pulse Resp BP Pulse Ox 98.6 F 72 20 138/64 95 09/15/17 06:06 09/15/17 06:06 09/15/17 06:06 09/15/17 06:06 09/15/17 06:06 General appearance: Present: no acute distress - Head Head exam: Present: atraumatic, normocephalic - Neck Neck exam general surgery: Present: supple, trachea midline. Absent: lymphadenopathy - Respiratory Respiratory exam: Present: CTAB. Absent: accessory muscle use, rales, rhonchi, wheezes - Cardiovascular Cardiovascular exam: Present: RRR, +S1, +S2. Absent: diastolic murmur, gallop, rubs, systolic murmur - GI/Abdominal GI/Abdominal exam: Present: normal bowel sounds, soft, no peritoneal signs. Absent: distended, tenderness - Extremities Exam Extremities exam: Present: warm, radial pulses palpable and symmetrical. Absent : calf tenderness, cyanotic, pedal edema Internal Med - H&P Results - Labs CBC & Chem 7: 09/16/17 00:31 09/16/17 00:31 - Impressions ITS Impressions Hip X-Ray 09/15/17 05:28 IMPRESSION: Acute periprosthetic fracture adjacent to the proximal femoral stem. D/ / Aaron Evans MD / Aaron Evans MD Interpreting Provider: Aaron Evans MD
[2017-09-15] MEDS ORDERED: Ipratropium/Albuterol Neb 3 ML IH PRN (10:03)
[2017-09-15] MEDS ORDERED: Ondansetron ODT 4 MG TAB.RAPDIS SL PRN (10:33)
[2017-09-15 12:35] LABS: Bilirubin,Urine Negative (Negative); Blood,Urine Moderate (Negative); Clarity,Urine Turbid (Clear); Color,Urine Yellow (Yellow); Glucose,Urine (UA) Normal (Normal); Ketones,Urine Negative (Negative); Leukocyte Esterase,Urine Large (Negative); Nitrite,Urine Negative (Negative); Protein,Urine >=300 mg/dL (Neg-Trace); Specific Gravity,Urine 1.023 (1.010-1.025); Urobilinogen,Urine Normal (Normal)
[2017-09-15 12:43] LABS: RBC,Urine Present per hpf (0-3); Squamous Epithelial Cell,Urine Present per lpf (None-Few); WBC,Urine TNTC per hpf (0-3)
[2017-09-15 12:44] LABS: Bacteria,Urine Present per hpf (None-Few)
[2017-09-15] MEDS: 0.9 % Sodium Chloride 1,000 ML IVC SCH ×2 (14:01→21:48)
[2017-09-15] MEDS: *HR* HYDROcodone/Acet 5/325 mg TABLET PO PRN ×2 (14:31→19:46)
[2017-09-15] MEDS: *HR* Heparin 5,000 UNIT/ML VIAL SQ SCH (17:17)
[2017-09-15] MEDS ORDERED: Haloperidol Lactate 5 MG/ML VIAL IM ONE (20:26)
[2017-09-15] MEDS: Latanoprost 2.5 ML BOTTLE BOTH EYES SCH (21:48)
[2017-09-16 00:41] LABS: Basophils % 0.3 %; Eosinophils # 0.4 K/mcL (0.0-0.6); Eosinophils % 3.7 %; Hematocrit 29.9 % (35.3-44.9); Immature Granulocytes % 0.8 % (0-4); Lymphocytes # 0.6 K/mcL (0.6-4.6); Lymphocytes % 5.4 %; Mean Corpuscular HGB Conc 34.1 g/dL (31.6-35.5); Mean Corpuscular Hemoglobin 32.2 pg (28.0-33.3); Mean Corpuscular Volume 94.3 fL (83.0-100.0); Mean Platelet Volume 10.7 fL (9.4-12.4); Monocytes # 0.9 K/mcL (0.0-1.3); Monocytes % 8.2 %; Neutrophils # 9.4 K/mcL (1.6-8.9); Platelet Count 115 K/mcL (140-400); Red Blood Count 3.17 M/mcL (3.82-4.97); Red Cell Distribution Width 14.4 % (11.5-14.5); Segmented Neutrophils % 81.6 %
[2017-09-16 00:42] LABS: Hemoglobin 10.2 g/dL (11.5-15.4)
[2017-09-16 00:47] LABS: INR 1.2; Prothrombin Time 12.8 Seconds (9.4-12.1)
[2017-09-16 00:50] LABS: Activated Partial Thrombo Time 27.2 Seconds (26.0-36.0)
[2017-09-16 01:37] LABS: Albumin 3.4 g/dL (3.5-5.7); Albumin/Globulin Ratio 1.2 (1.1-2.2); Bilirubin,Total 1.1 mg/dL (0.3-1.0); Calcium 8.2 mg/dL (8.6-10.3); Chol/HDL Ratio 3.4 (0-4.9); Globulin 2.9 g/dL (2.4-3.5); Magnesium 2.2 mg/dL (1.6-2.6); Phosphorous 2.9 mg/dL (2.7-4.5); Potassium 3.9 mEq/L (3.5-5.1); Total Protein 6.3 g/dL (6.4-8.9)
[2017-09-16] MEDS ORDERED: Haloperidol Lactate 5 MG/ML VIAL IM ONE (03:30)
[2017-09-16] MEDS: cefTRIAXone 1,000 MG in Water for inj. (sterile) 10 ML IVP SCH (05:36)
[2017-09-16] MEDS: *HR* Heparin 5,000 UNIT/ML VIAL SQ SCH ×2 (05:36→17:54)
--- NOTE | 2017-09-16 06:39 | Orthopedic Consult Note ---
Date of Encounter: 09/16/17 Time of Encounter: 06:35 History of Present Illness HPI: Ms. Woodard is a 86 year old female Fall yesterday with injury to right lower extremity, seen this morning patient confused nonparticipating Difficult to exam due to confusion. X-rays reviewed right inferior pubic rami fracture and periprosthetic proximal femur fracture. Fracture stable cemented component appears stable as well. Recommend advance weightbearing as tolerated with pain control no surgical intervention recommended at this time. Past Med Surg Social Fam HX - Past Medical History Medical history: aortic aneurysm, arthritis, cancer, CHF, dementia, GERD, glaucoma, hyperlipidemia, hypertension, malignancy, venous stasis Psychiatric history: no psych history - Past Surgical History Surgical History: hysterectomy, other - Social History Smoking Status: Never smoker Smokeless Tobacco Status: No Alcohol use: occasionally Drug use: none - Family History Father Living Status: Age at : 70 Cause of : CO Hx Family Cardiac Disorders: Yes Mother Living Status: Age at : 98 Cause of : dementia Hx Family Cardiac Disorders: No Hx Family Respiratory Disorders: No Hx Family Cancer: Yes Hx Family GI Disorders: No Hx Family Endocrine Disorder: No Hx Family Neuromuscular Disorders: No Hx Family Neurologic Disorders: No Hx Family HEENT Disorders: No Hx Family Autoimmune Disorders: No Medications and Allergies Aspirin 81 mg PO DAILY 06/03/17 [History] Cholecalciferol (D-3) [Vitamin D] 1,000 unit PO DAILY 06/03/17 [History] Docusate [Colace] 100 mg PO HS 06/03/17 [History] Multivitamin-Min/Iron/FA/Vit K [Multi-Day Plus Minerals Tablet] 1 each PO DAILY 06/03/17 [History] Omeprazole [PriLOSEC] 20 mg PO DAILY 06/03/17 [History] Simvastatin [Zocor] 10 mg PO HS 06/03/17 [History] Furosemide [Lasix] 40 mg PO BID #0 06/09/17 [Rx] Ipratropium/Albuterol Neb [Duoneb] 3 ml IH QID PRN inh 06/09/17 [Rx] Latanoprost [Xalatan] 1 drop BOTH EYES HS bottle 06/09/17 [Rx] Potassium Chloride [Klor-Con 10] 10 meq PO BID 09/15/17 [History] 3 Allergy/AdvReac Type Severity Reaction Status Date / Time Sulfa (Sulfonamide Allergy See Verified 05/16/15 15:51 Antibiotics) Comments All Systems Reviewed: A 10-system review of systems was performed and is negative for pertinent findings except as documented above in the HPI. Physical Exam - Constitutional Vitals: Temp Pulse Resp BP Pulse Ox 97.7 F 80 18 143/73 97 09/16/17 06:13 09/16/17 06:13 09/16/17 06:13 09/16/17 06:13 09/16/17 06:13 Results - Labs Result Diagrams: 09/16/17 00:31 09/16/17 00:31 Labs: Abnormal lab results WBC 11.5 K/mcL (4.3-11.1) H 09/16/17 00:31 RBC 3.17 M/mcL (3.82-4.97) L 09/16/17 00:31 Hgb 10.2 g/dL (11.5-15.4) L D 09/16/17 00:31 Hct 29.9 % (35.3-44.9) L 09/16/17 00:31 Plt Count 115 K/mcL (140-400) L 09/16/17 00:31 Neutrophils # 9.4 K/mcL (1.6-8.9) H 09/16/17 00:31 PT 12.8 Seconds (9.4-12.1) H 09/16/17 00:31 Sodium 130 mEq/L (136-145) L 09/16/17 00:31 BUN 37 mg/dL (8-23) H 09/16/17 00:31 Creatinine 1.53 mg/dL (0.60-1.20) H 09/16/17 00:31 Est GFR ( Amer) 39 (> 60) L 09/16/17 00:31 Est GFR (Non-Af Amer) 32 (> 60) L 09/16/17 00:31 Glucose 117 mg/dL (70-105) H 09/16/17 00:31 Calcium 8.2 mg/dL (8.6-10.3) L 09/16/17 00:31 Total Bilirubin 1.1 mg/dL (0.3-1.0) H 09/16/17 00:31 Serum Total Protein 6.3 g/dL (6.4-8.9) L 09/16/17 00:31 Albumin 3.4 g/dL (3.5-5.7) L 09/16/17 00:31 HDL Cholesterol 37 mg/dL (40-59) L 09/16/17 00:31 Ur Specimen Adequacy See below A 09/15/17 12:15 Urine Clarity Turbid (Clear) A 09/15/17 12:15 Urine Protein >=300 mg/dL (Neg-Trace) H 09/15/17 12:15 Urine Blood Moderate (Negative) H 09/15/17 12:15 Ur Leukocyte Esterase Large (Negative) H 09/15/17 12:15 Urine Microscopic WBC TNTC per hpf (0-3) H 09/15/17 12:15 Ur Culture Indicated? YES (NO) A 09/15/17 04:30 H & H 09/16/17 Range/Units 00:31 Hgb 10.2 L D (11.5-15.4) g/dL Hct 29.9 L (35.3-44.9) % All other labs normal. Consult Discharge Plan - Plan Referrals: NONE,PCP [Primary Care Provider] -
[2017-09-16] MEDS ORDERED: 0.9 % Sodium Chloride 1,000 ML IVC SCH (08:15)
--- NOTE | 2017-09-16 08:18 | Internal Med Progress Note ---
Date of Encounter: 09/16/17 Time of Encounter: 08:15 - Assessment and plan (1) Fracture of lesser trochanter of femur Current Visit: Yes Status: Acute Assessment and plan: There does not seem to be any surgical needs. Orthopedics. Continue with physical therapy and she is weightbearing as tolerated. Continue with pain control. Qualifiers: Encounter type: initial encounter Fracture type: closed Fracture alignment: nondisplaced Laterality: right Qualified Code(s): S72.124A - Nondisplaced fracture of lesser trochanter of right femur, initial encounter for closed fracture (2) Inferior pubic ramus fracture Current Visit: Yes Status: Acute Assessment and plan: As above. Qualifiers: Encounter type: initial encounter Fracture type: closed Laterality: right Qualified Code(s): S32.591A - Other specified fracture of right pubis, initial encounter for closed fracture (3) Atrial fibrillation Current Visit: No Status: Chronic Assessment and plan: The patient is not on any rate controlling agents. Her rate is well controlled however. She is only on aspirin for anticoagulation purposes. I think this is adequate given her age. Qualifiers: Atrial fibrillation type: unspecified Qualified Code(s): I48.91 - Unspecified atrial fibrillation (4) Hypertension Current Visit: No Status: Chronic Assessment and plan: Continue Lasix. Qualifiers: Hypertension type: essential hypertension Qualified Code(s): I10 - Essential (primary) hypertension (5) Urinary tract infection with hematuria Current Visit: Yes Status: Acute Assessment and plan: Continue ceftriaxone and follow up on cultures. He is afebrile. Qualifiers: Urinary tract infection type: site unspecified Qualified Code(s): N39.0 - Urinary tract infection, site not specified; R31.9 - Hematuria, unspecified; R31.9 - Hematuria, unspecified (6) CKD (chronic kidney disease) Current Visit: Yes Status: Acute Assessment and plan: Kidney numbers are above baseline. I will restart Lasix hoping for some hydration of the kidneys. Check labs in the morning. Will not start IV fluids given her history of CHF and severe aortic stenosis. Qualifiers: Chronic kidney disease stage: unspecified stage Qualified Code(s): N18.9 - Chronic kidney disease, unspecified (7) DVT prophylaxis Current Visit: No Status: Acute Assessment and plan: Heparin subcutaneous - Subjective Interval history: There has been no acute events. The patient with history of severe dementia. She is unable to provide significant history. Not exactly sure what the circumstances of her fall were. She is here with a right hip fracture. Physical therapy is in the room working with the patient. Pain seems to be well -controlled. Has no plans for surgery. The patient is also being treated for urinary tract infection. - Constitutional Vitals: Temp Pulse Resp BP Pulse Ox 97.7 F 80 18 143/73 97 09/16/17 06:13 09/16/17 06:13 09/16/17 06:13 09/16/17 06:13 09/16/17 06:13 Exam: GEN: NAD. She is able to tell me her name. She does not know where she is at. She does not date. CVS: RRR. S1, S2, systolic murmur 3 out of 6 with no radiation heard at the base of the precordium RESP: CTAB ABD: Soft, NT, ND, +BS EXT: No edema. 2+ DP. No rashes. She is able to lift her left lower extremity minimally against resistance. She is unable to move her right lower extremity. Her right lower extremity is externally rotated. NEURO: Nonfocal Internal Medicine: Result - Labs CBC & Chem 7: 09/16/17 00:31 09/16/17 00:31 Labs: Short CBC 09/16/17 Range/Units 00:31 WBC 11.5 H (4.3-11.1) K/mcL Hgb 10.2 L D (11.5-15.4) g/dL Hct 29.9 L (35.3-44.9) % Plt Count 115 L (140-400) K/mcL Neutrophils # 9.4 H (1.6-8.9) K/mcL BMP 09/16/17 00:31 Sodium 130 L Potassium 3.9 Chloride 101 Carbon Dioxide 25 BUN 37 H Creatinine 1.53 H Glucose 117 H Calcium 8.2 L Cardiac Enzymes 09/15/17 09/15/17 09/16/17 Range/Units 10:49 16:17 00:31 Troponin I 0.03 < 0.03 0.03 (< 0.04) ng/mL Liver Function 09/16/17 Range/Units 00:31 Total Bilirubin 1.1 H (0.3-1.0) mg/dL AST 21 (13-39) Units/L ALT 14 (7-52) Units/L Alkaline Phosphatase 59 (34-104) Units/L Albumin 3.4 L (3.5-5.7) g/dL Urine 09/15/17 Range/Units 12:15 Urine Color Yellow (Yellow) Urine Clarity Turbid A (Clear) Urine pH 6.0 (5.0-8.0) pH Units Ur Specific Taylor 1.023 (1.010-1.025) Urine Protein >=300 H (Neg-Trace) mg/dL Urine Glucose (UA) Normal (Normal) mg/dL - ABG Interpretation ABG results: PT/INR, D-dimer PT 12.8 Seconds (9.4-12.1) H 09/16/17 00:31 - Impressions Impressions Chest X-Ray 09/15/17 10:37 IMPRESSION: No new acute abnormality. D/ / Dony De La Torre MD / Dony De La Torre MD Interpreting Provider: Dony De La Torre MD - VTE Documentation of Mechanical Device: Intermittent pneumatic compression device Consult Discharge Plan - Plan Referrals: NONE,PCP [Primary Care Provider] -
[2017-09-16] MEDS: Aspirin 81 MG TAB.CHEW PO SCH (08:39)
[2017-09-16] MEDS: Cholecalciferol (D-3) 1,000 UNIT TABLET PO SCH (08:40)
[2017-09-16] MEDS: Furosemide 40 MG TABLET PO SCH ×2 (08:40→17:54)
[2017-09-16] MEDS: Multivit/Ca/Min/Fe/FA 1 TAB TABLET PO SCH (08:40)
--- NOTE | 2017-09-16 16:48 | Electrocardiograph Report ---
[address] [address] Test Date: 2017-09-15 Pat Name: Lynne Woodard Department: 104 Room: [facility] Gender: F Faculty Member: : 1930 Requested By: Werner Crockett Order Number: [id number] Reading MD: Renny Renee MD Measurements Intervals [place] Rate: 70 P: 16 MN: 222 QRS: 101 QRSD: 141 T: -56 QT: 465 QTc: 485 Interpretive Statements SINUS RHYTHM WITH FIRST DEGREE AV BLOCK MARKED RIGHT AXIS DEVIATION Poor R wave progression INTRAVENTRICULAR CONDUCTION DELAY Electronically Signed On 09-16-2017 16:46:16 EST by Renny Renee MD
[2017-09-16] MEDS: Latanoprost 2.5 ML BOTTLE BOTH EYES SCH (20:05)
[2017-09-17] MEDS: cefTRIAXone 1,000 MG in Water for inj. (sterile) 10 ML IVP SCH (05:39)
[2017-09-17] MEDS: *HR* Heparin 5,000 UNIT/ML VIAL SQ SCH (05:40)
[2017-09-17 06:04] LABS: Basophils % 0.4 %; Eosinophils # 0.6 K/mcL (0.0-0.6); Eosinophils % 6.3 %; Hematocrit 27.1 % (35.3-44.9); Hemoglobin 9.3 g/dL (11.5-15.4); Immature Granulocytes % 0.9 % (0-4); Lymphocytes # 0.8 K/mcL (0.6-4.6); Lymphocytes % 8.9 %; Mean Corpuscular HGB Conc 34.3 g/dL (31.6-35.5); Mean Corpuscular Hemoglobin 32.3 pg (28.0-33.3); Mean Corpuscular Volume 94.1 fL (83.0-100.0); Mean Platelet Volume 10.7 fL (9.4-12.4); Monocytes # 1.1 K/mcL (0.0-1.3); Monocytes % 11.8 %; Neutrophils # 6.4 K/mcL (1.6-8.9); Platelet Count 107 K/mcL (140-400); Red Blood Count 2.88 M/mcL (3.82-4.97); Red Cell Distribution Width 14.4 % (11.5-14.5); Segmented Neutrophils % 71.7 %
[2017-09-17 06:21] LABS: Calcium 8.2 mg/dL (8.6-10.3)
[2017-09-17] MEDS: Cholecalciferol (D-3) 1,000 UNIT TABLET PO SCH (08:21)
[2017-09-17] MEDS: Furosemide 40 MG TABLET PO SCH (08:21)
[2017-09-17] MEDS: Aspirin 81 MG TAB.CHEW PO SCH (08:21)
[2017-09-17] MEDS: Multivit/Ca/Min/Fe/FA 1 TAB TABLET PO SCH (08:21)
--- NOTE | 2017-09-17 08:25 | Discharge Summary ---
Date of Encounter: 09/17/17 Time of Encounter: 08:00 - Discharge Diagnosis (1) Fracture of lesser trochanter of femur Priority: Primary Status: Acute Qualifiers: Encounter type: initial encounter Fracture type: closed Fracture alignment: nondisplaced Laterality: right Qualified Code(s): S72.124A - Nondisplaced fracture of lesser trochanter of right femur, initial encounter for closed fracture (2) Inferior pubic ramus fracture Priority: Primary Status: Acute Qualifiers: Encounter type: initial encounter Fracture type: closed Laterality: right Qualified Code(s): S32.591A - Other specified fracture of right pubis, initial encounter for closed fracture (3) Atrial fibrillation Priority: Secondary Status: Chronic Qualifiers: Atrial fibrillation type: unspecified Qualified Code(s): I48.91 - Unspecified atrial fibrillation (4) Hypertension Priority: Secondary Status: Chronic Qualifiers: Hypertension type: essential hypertension Qualified Code(s): I10 - Essential (primary) hypertension (5) Urinary tract infection with hematuria Priority: Primary Status: Acute Qualifiers: Urinary tract infection type: site unspecified Qualified Code(s): N39.0 - Urinary tract infection, site not specified; R31.9 - Hematuria, unspecified; R31.9 - Hematuria, unspecified (6) CKD (chronic kidney disease) Priority: Secondary Status: Acute Qualifiers: Chronic kidney disease stage: stage 3 (moderate) Qualified Code(s): N18.3 - Chronic kidney disease, stage 3 (moderate) (7) Chronic CHF Priority: Secondary Status: Acute Qualifiers: Congestive heart failure type: systolic Qualified Code(s): I50.22 - Chronic systolic (congestive) heart failure - Discharge Medications Prescriptions: HYDROcodone/Acet 5/325 mg [[place] 5-325 mg] 1 tab PO Q4HR PRN #12 tablet PRN Reason: Moderate Pain (4-6) Nitrofurantoin Monohyd/M-Cryst [Macrobid 100 mg Capsule] 100 mg PO BID #14 capsule Home Medications: Aspirin 81 mg PO DAILY 06/03/17 [History] Cholecalciferol (D-3) [Vitamin D] 1,000 unit PO DAILY 06/03/17 [History] Docusate [Colace] 100 mg PO HS 06/03/17 [History] Multivitamin-Min/Iron/FA/Vit K [Multi-Day Plus Minerals Tablet] 1 each PO DAILY 06/03/17 [History] Omeprazole [PriLOSEC] 20 mg PO DAILY 06/03/17 [History] Simvastatin [Zocor] 10 mg PO HS 06/03/17 [History] Furosemide [Lasix] 40 mg PO BID #0 06/09/17 [Rx] Ipratropium/Albuterol Neb [Duoneb] 3 ml IH QID PRN inh 06/09/17 [Rx] Latanoprost [Xalatan] 1 drop BOTH EYES HS bottle 06/09/17 [Rx] Potassium Chloride [Klor-Con 10] 10 meq PO BID 09/15/17 [History] HYDROcodone/Acet 5/325 mg [[place] 5-325 mg] 1 tab PO Q4HR PRN #12 tablet [Rx] Nitrofurantoin Monohyd/M-Cryst [Macrobid 100 mg Capsule] 100 mg PO BID #14 capsule 09/17/17 [Rx] Allergies/Adverse Reactions: 3 Allergy/AdvReac Type Severity Reaction Status Date / Time Sulfa (Sulfonamide Allergy See Verified 05/16/15 15:51 Antibiotics) Comments Date of admission: 09/15/17 05:18 Primary care physician: PCP NONE Consults: 09/15/17 06:21 Consult to Pastoral Services [CONS] Routine Comment: 09/15/17 17:23 Consult to Occupational Therapy [CONS] Routine Comment: Evaluate, develop and implement POC Reason for Consult: Stable right hip fracture. WBAT with walker. Consult to Physical Therapy [CONS] Routine Comment: Evaluate, develop and implement POC Reason for Consult: Stable right hip fracture. WBAT with walker. 09/15/17 17:25 Consult to City Manager [CONS] Routine Reason for SW Consult: Discharge planning. - Patient Status Disposition: Transfer Inpatient Rehab Fac Condition: Fair Overall status at discharge: patient is progressing back to baseline - Discharge Instructions Follow Up With: NONE,PCP [Primary Care Provider] - Bradley Hurley MD [Partnered Physician] - (2 weeks) - Diet and Activity Activity: as per physical therapy Diet: regular diet Hospital course: Ms. Woodard is a 86 year old female with history of atrial fibrillation on aspirin, hypertension, hyperlipidemia, and dementia who [facility] the [facility] due to questionable hip fracture on x-ray. The circumstances of her fall are not completely clear however she was admitted to the hospitalist service after she was diagnosed with right lesser trochanter avulsion fracture as well as right inferior pubic ramus fracture with both being acute to subacute. There was also an acute periprosthetic fracture on the right hip adjacent to the proximal femoral stem. The patient was admitted to the hospitalist service with consult orthopedics without this is nonoperative. The patient worked with therapy. She was recommended rehabilitation. She was also diagnosed with a urinary tract infection. Her cultures grew Staphylococcus lugdunesis. She was started on IV antibiotics initially and was switched to Macrobid to finish her course of treatment at discharge. He was stable for discharge on 09/17/2017 to rehabilitation. Of note CT head was done in the ED upon presentation which came back with no acute findings - Time Spent with Patient Total time spent providing and/or coordinating discharge services: Greater than 30 minutes - Constitutional Vitals: Temp Pulse Resp BP Pulse Ox 98.6 F 65 16 140/59 97 09/17/17 06:34 09/17/17 06:34 09/17/17 06:34 09/17/17 06:34 09/17/17 06:34 General appearance: Present: no acute distress Exam: GEN: NAD. She is able to tell me her name. She does not know where she is at. She does not date. CVS: RRR. S1, S2, systolic murmur 3 out of 6 with no radiation heard at the base of the precordium RESP: CTAB ABD: Soft, NT, ND, +BS EXT: No edema. 2+ DP. No rashes. She is able to lift her left lower extremity minimally against resistance. She is unable to move her right lower extremity. Her right lower extremity is externally rotated. NEURO: Nonfocal - VTE Documentation of Mechanical Device: Intermittent pneumatic compression device
--- NOTE | 2017-09-17 08:26 | Physician Discharge Referral ---
ExtendedCare Referral Info Institutional Level of Care: Skilled - Diagnosis (1) Fracture of lesser trochanter of femur Priority: Primary Status: Acute (2) Inferior pubic ramus fracture Priority: Primary Status: Acute (3) Atrial fibrillation Priority: Secondary Status: Chronic (4) Hypertension Priority: Secondary Status: Chronic (5) Urinary tract infection with hematuria Priority: Primary Status: Acute (6) CKD (chronic kidney disease) Priority: Secondary Status: Acute - Transfer Medications Prescriptions: HYDROcodone/Acet 5/325 mg [[place] 5-325 mg] 1 tab PO Q4HR PRN #12 tablet PRN Reason: Moderate Pain (4-6) Nitrofurantoin Monohyd/M-Cryst [Macrobid 100 mg Capsule] 100 mg PO BID #14 capsule Home Medications: Aspirin 81 mg PO DAILY 06/03/17 [History] Cholecalciferol (D-3) [Vitamin D] 1,000 unit PO DAILY 06/03/17 [History] Docusate [Colace] 100 mg PO HS 06/03/17 [History] Multivitamin-Min/Iron/FA/Vit K [Multi-Day Plus Minerals Tablet] 1 each PO DAILY 06/03/17 [History] Omeprazole [PriLOSEC] 20 mg PO DAILY 06/03/17 [History] Simvastatin [Zocor] 10 mg PO HS 06/03/17 [History] Furosemide [Lasix] 40 mg PO BID #0 06/09/17 [Rx] Ipratropium/Albuterol Neb [Duoneb] 3 ml IH QID PRN inh 06/09/17 [Rx] Latanoprost [Xalatan] 1 drop BOTH EYES HS bottle 06/09/17 [Rx] Potassium Chloride [Klor-Con 10] 10 meq PO BID 09/15/17 [History] HYDROcodone/Acet 5/325 mg [[place] 5-325 mg] 1 tab PO Q4HR PRN #12 tablet [Rx] Nitrofurantoin Monohyd/M-Cryst [Macrobid 100 mg Capsule] 100 mg PO BID #14 capsule 09/17/17 [Rx] Allergies/Adverse Reactions: 3 Allergy/AdvReac Type Severity Reaction Status Date / Time Sulfa (Sulfonamide Allergy See Verified 05/16/15 15:51 Antibiotics) Comments - Respiratory Orders Smoking Cessation: Smoking cessation has been advised. For more information, call the [place] Tobacco Quit Line at 9-777-QEZP-NOW. - Rehabiliation Orders Rehab Orders: Evaluation for Physical Therapy - Diet Orders Regular CERTIFICATION: I certify that the transfer of the above named patient to an Extended Care Facility is necessary for the continuing treatment of the diagnosis listed. The above information is true and accurate reflection of patient's current condition. Confidential - Redisclosure prohibited without a patient's written consent.
[2017-09-17 10:30] VITALS: BP 152/68
== END 2017-09-17 12:12 | DRG 964 ==
LOC: EMEROO 03:41 → 3NENU 03:41
PROVIDERS: ADMIT Internal Medicine Nephrology; ATTEND Internal Medicine

== ENCOUNTER 2017-09-25 18:34 | Inpatient (IN) ==
[2017-09-25 19:12] LABS: Basophils # 0.1 K/mcL (0.0-0.2); Basophils % 0.5 %; Eosinophils # 0.4 K/mcL (0.0-0.6); Eosinophils % 3.3 %; Hematocrit 29.1 % (35.3-44.9); Hemoglobin 9.7 g/dL (11.5-15.4); Immature Granulocytes % 1.2 % (0-4); Lymphocytes # 0.8 K/mcL (0.6-4.6); Lymphocytes % 7.1 %; Mean Corpuscular HGB Conc 33.3 g/dL (31.6-35.5); Mean Corpuscular Hemoglobin 31.2 pg (28.0-33.3); Mean Corpuscular Volume 93.6 fL (83.0-100.0); Mean Platelet Volume 9.8 fL (9.4-12.4); Monocytes % 9.4 %; Neutrophils # 8.5 K/mcL (1.6-8.9); Platelet Count 286 K/mcL (140-400); Red Blood Count 3.11 M/mcL (3.82-4.97); Segmented Neutrophils % 78.5 %
--- NOTE | 2017-09-25 19:15 | Emergency Department Note ---
Disposition Clinical Impression: 2nd degree AV block, Renal failure, History of aortic valve replacement with bioprosthetic valve Chronic CHF Qualifiers: Congestive heart failure type: systolic Qualified Code(s): I50.22 - Chronic systolic (congestive) heart failure Atrial fibrillation Qualifiers: Atrial fibrillation type: unspecified Qualified Code(s): I48.91 - Unspecified atrial fibrillation Disposition: Admitted As Inpatient Condition: Fair General Adult HPI - General Chief complaint: ED General Medical Stated complaint: Possible Kidney Failure Per [facility]CF Time Seen by Provider: 09/25/17 18:39 Source: family, EMS Mode of arrival: EMS Limitations: altered mental status Nursing Notes Reviewed: Yes Vital Signs Reviewed: Yes - History of Present Illness HPI Narrative: Patient presents from MI with elevated Cr and AMS. EMS reports baseline dementia but has been worsening over the past few days. Had bloodwork checked and her Cr was elevated. They also state more confused than usual. Patient has a non-op R hip/pelvis fx. According to family she has also had her aortic valve replaced and is followed by Dr. Pickens who states she needs another one but family states that they would not want this for her, even if it was a TAVR. No focal weakness but just isn't acting herself. No fever. Pain Scale: 0 - Related Data Home Medications Medication Instructions Recorded Confirmed Cholecalciferol (D-3) [Vitamin D] 1,000 unit PO DAILY 06/03/17 09/25/17 Docusate [Colace] 100 mg PO HS 06/03/17 09/25/17 Multivitamin-Min/Iron/FA/Vit K 1 each PO DAILY 06/03/17 09/25/17 [Multi-Day Plus Minerals Tablet] Omeprazole [PriLOSEC] 20 mg PO DAILY 06/03/17 09/25/17 Simvastatin [Zocor] 10 mg PO HS 06/03/17 09/25/17 Potassium Chloride [Klor-Con 10] 10 meq PO BID 09/15/17 09/25/17 Aspirin Enteric Coated [Aspirin EC] 81 mg PO DAILY 09/25/17 09/25/17 Bisacodyl [Dulcolax] 10 mg RC DAILY PRN 09/25/17 09/25/17 Ferrous Sulfate 325 mg PO DAILY 09/25/17 09/25/17 LORazepam [Ativan] 0.5 mg PO QAM 09/25/17 09/25/17 MOM Conc [Milk of Magnesia Conc] 30 ml PO DAILY PRN 09/25/17 09/25/17 Previous Rx's Medication Instructions Recorded Furosemide [Lasix] 40 mg PO BID #0 06/09/17 Ipratropium/Albuterol Neb [Duoneb] 3 ml IH QID PRN inh 06/09/17 Latanoprost [Xalatan] 1 drop BOTH EYES HS bottle 06/09/17 HYDROcodone/Acet 5/325 mg [[place] 1 tab PO Q4HR PRN #12 tablet 09/17/17 5-325 mg] Allergies Allergy/AdvReac Type Severity Reaction Status Date / Time Sulfa (Sulfonamide Allergy See Verified 09/23/17 09:26 Antibiotics) Comments All systems ED: reviewed and negative except as stated. Constitutional: Denies: fever Cardiovascular: Denies: chest pain Respiratory: Denies: dyspnea Genitourinary: Reports: as per HPI Musculoskeletal: Reports: as per HPI (chronic pelvic/R leg pain from fx) Neurological: Reports: weakness, confusion Endocrine: Reports: fatigue Past Medical History - Past Medical History Attestation: Yes The following information was validated with the patient. Source: old records reviewed, obtained from family Medical history: Reports: aortic aneurysm, arthritis, cancer, CHF, dementia, GERD, glaucoma, hyperlipidemia, hypertension, malignancy, venous stasis Surgical history: Reports: cancer surgery, hip replacement, hysterectomy, other Psychiatric history: Reports: anxiety, depression, panic disorder - Social History Smoking Status: Never smoker Smokeless Tobacco Status: No Alcohol use: Reports: occasionally Drug use: Reports: none Physical Exam - General Limitations: altered mental status General appearance: alert, in no apparent distress - Head Head exam: atraumatic, normocephalic, normal inspection - Eye Eye exam: Present: normal appearance, PERRL, EOMI - ENT ENT exam: mucous membranes dry - Neck Neck exam: Present: normal inspection. Absent: tenderness - Chest Chest inspection: Present: normal inspection, symmetric chest wall rise - Respiratory Respiratory exam: Present: normal lung sounds bilaterally - Cardiovascular Cardiovascular exam: Present: regular rate, normal rhythm, systolic murmur - Abdominal Exam Abdominal exam: Present: soft, Non-Tender. Absent: tenderness, distention, guarding, rebound, rigidity - Extremities Exam Extremities exam: Present: tenderness (R hip), normal capillary refill - Expanded Lower Extremity Exam Hip/Pelvis exam: Present: pelvis stable (R hip tenderness) - Neurological Exam Neurological exam: Present: alert. Absent: oriented X3 (oriented to person and place with family present, able to answer simple yes/no questions, seems appropriate ), normal gait (non-ambulatory ) - Skin Skin exam: Present: warm, dry, intact, normal color Course Course Narrative: patient presenting with apparent ARF from snf. will recheck labs and get cxr/ ct. likely metabolic encep but will r/o other causes. - Reevaluation(s) Reevaluation #1: labs do show slowly increasing renal failure and elevated BUN. Suspect uremic encephalopathy. Unclear etiology. Family reports patient taken off ABX recently for UTI. UA here does show some infection so will treat with rocephin and admit to hospitalist service. Vital Signs Temperature 98.2 F 09/25/17 18:35 Pulse Rate 81 09/25/17 18:35 Respiratory Rate 16 09/25/17 18:35 Blood Pressure 117/58 09/25/17 18:35 O2 Sat by Pulse Oximetry 96 09/25/17 18:35 Temperature 98.7 F 09/25/17 23:53 Pulse Rate 76 09/25/17 23:53 Respiratory Rate 45 09/25/17 23:53 Blood Pressure 134/41 09/25/17 23:53 O2 Sat by Pulse Oximetry 92 09/25/17 23:53 Oxygen Delivery Oxygen Delivery Room Air Medical Decision Making - Medical Records Medical records reviewed: Yes I reviewed the patient's medical records. - Lab Data Lab results reviewed: Yes I reviewed the patient's lab results. Result diagrams: 09/25/17 19:01 09/25/17 19:01 Lab Results 09/25/17 09/25/17 09/25/17 Range/Units 19:01 19: 19:01 WBC 10.8 (4.3-11.1) K/mcL RBC 3.11 L (3.82-4.97) M/mcL Hgb 9.7 L (11.5-15.4) g/dL Hct 29.1 L (35.3-44.9) % MCV 93.6 (83.0-100.0) fL MCH 31.2 (28.0-33.3) pg MCHC 33.3 (31.6-35.5) g/dL RDW 14.0 (11.5-14.5) % Plt Count 286 (140-400) K/mcL MPV 9.8 (9.4-12.4) fL Immature Gran % 1.2 (0-4) % Seg Neutrophils % 78.5 % Lymphocytes % 7.1 % Monocytes % 9.4 % Eosinophils % 3.3 % Basophils % 0.5 % Neutrophils # 8.5 (1.6-8.9) K/mcL Lymphocytes # 0.8 (0.6-4.6) K/mcL Monocytes # 1.0 (0.0-1.3) K/mcL Eosinophils # 0.4 (0.0-0.6) K/mcL Basophils # 0.1 (0.0-0.2) K/mcL PT 12.6 H (9.4-12.1) Seconds INR 1.2 APTT 27.5 (26.0-36.0) Seconds Sodium 133 L (136-145) mEq/L Potassium 4.0 (3.5-5.1) mEq/L Chloride 100 (98-107) mEq/L Carbon Dioxide 22 L (23-29) mEq/L BUN 73 H (8-23) mg/dL Creatinine 3.56 H (0.60-1.20) mg/dL Est GFR ( Amer) 15 L (> 60) Est GFR (Non-Af Amer) 12 L (> 60) BUN/Creatinine Ratio 21 (6-26) Glucose 208 H (70-105) mg/dL Calculated Osmolality 304 H (280-300) Calcium 8.3 L (8.6-10.3) mg/dL Total Bilirubin 0.8 (0.3-1.0) mg/dL Direct Bilirubin 0.2 (0.0-0.2) mg/dL Indirect Bilirubin 0.6 (0.0-1.2) mg/dL AST 19 (13-39) Units/L ALT 12 (7-52) Units/L Alkaline Phosphatase 102 (34-104) Units/L Creatine Kinase 47 (30-223) Units/L Troponin I (< 0.04) ng/mL Serum Total Protein 7.2 (6.4-8.9) g/dL Albumin 3.2 L (3.5-5.7) g/dL Globulin 4.0 H (2.4-3.5) g/dL Albumin/Globulin Ratio 0.8 L (1.1-2.2) TSH 3.900 (0.340-5.600) mcIU/mL Urine Color (Yellow) Urine Clarity (Clear) Urine pH (5.0-8.0) pH Units Ur Specific [place] (1.010-1.025) Urine Protein (Neg-Trace) mg/dL Urine Glucose (UA) (Normal) mg/dL Urine Ketones (Negative) mg/dL Urine Blood (Negative) Urine Nitrite (Negative) Urine Bilirubin (Negative) Urine Urobilinogen (Normal) mg/dL Ur Leukocyte Esterase (Negative) Urine Microscopic RBC (0-3) per hpf Urine Microscopic WBC (0-3) per hpf Ur Squamous Epith Cells (None-Few) per lpf Urine Bacteria (None-Few) per hpf Hyaline Casts (None-Few) per lpf Urine Yeast (None Seen) per hpf Ur Culture Indicated? (NO) 09/25/17 09/25/17 Range/Units 19:01 20:19 WBC (4.3-11.1) K/mcL RBC (3.82-4.97) M/mcL Hgb (11.5-15.4) g/dL Hct (35.3-44.9) % MCV (83.0-100.0) fL MCH (28.0-33.3) pg MCHC (31.6-35.5) g/dL RDW (11.5-14.5) % Plt Count (140-400) K/mcL MPV (9.4-12.4) fL Immature Gran % (0-4) % Seg Neutrophils % % Lymphocytes % % Monocytes % % Eosinophils % % Basophils % % Neutrophils # (1.6-8.9) K/mcL Lymphocytes # (0.6-4.6) K/mcL Monocytes # (0.0-1.3) K/mcL Eosinophils # (0.0-0.6) K/mcL Basophils # (0.0-0.2) K/mcL PT (9.4-12.1) Seconds INR APTT (26.0-36.0) Seconds Sodium (136-145) mEq/L Potassium (3.5-5.1) mEq/L Chloride (98-107) mEq/L Carbon Dioxide (23-29) mEq/L BUN (8-23) mg/dL Creatinine (0.60-1.20) mg/dL Est GFR ( Amer) (> 60) Est GFR (Non-Af Amer) (> 60) BUN/Creatinine Ratio (6-26) Glucose (70-105) mg/dL Calculated Osmolality (280-300) Calcium (8.6-10.3) mg/dL Total Bilirubin (0.3-1.0) mg/dL Direct Bilirubin (0.0-0.2) mg/dL Indirect Bilirubin (0.0-1.2) mg/dL AST (13-39) Units/L ALT (7-52) Units/L Alkaline Phosphatase (34-104) Units/L Creatine Kinase (30-223) Units/L Troponin I < 0.03 (< 0.04) ng/mL Serum Total Protein (6.4-8.9) g/dL Albumin (3.5-5.7) g/dL Globulin (2.4-3.5) g/dL Albumin/Globulin Ratio (1.1-2.2) TSH (0.340-5.600) mcIU/mL Urine Color Yellow (Yellow) Urine Clarity Turbid A (Clear) Urine pH 5.5 (5.0-8.0) pH Units Ur Specific [place] 1.014 (1.010-1.025) Urine Protein Trace (Neg-Trace) mg/dL Urine Glucose (UA) Normal (Normal) mg/dL Urine Ketones Negative (Negative) mg/dL Urine Blood Small H (Negative) Urine Nitrite Negative (Negative) Urine Bilirubin Negative (Negative) Urine Urobilinogen Normal (Normal) mg/dL Ur Leukocyte Esterase Large H (Negative) Urine Microscopic RBC 0-3 (0-3) per hpf Urine Microscopic WBC TNTC H (0-3) per hpf Ur Squamous Epith Cells Many H (None-Few) per lpf Urine Bacteria Moderate H (None-Few) per hpf Hyaline Casts None Seen (None-Few) per lpf Urine Yeast Many H (None Seen) per hpf Ur Culture Indicated? NO. (NO) - Radiology Data Radiology results reviewed: Yes I reviewed the patient's radiology results. Sinus rhythm with second-degree AV block, rate 66, QRS 149, QTC 465, left axis deviation, no previous available Attestation Statement - Attestation Attestation: I examined this patient and my medical decision-making was reviewed with the Resident Physician. I agree with the documented findings, disposition and treatment plan as described except to the extent set forth below. Findings consistent with acute renal failure. Suspect uremia as a cause. We will start aggressive IV hydration. We will proceed with admission. I spent greater than 35 minutes of critical care time resuscitating this acutely ill patient suffering from uremia. This was excluding billable procedures.
[2017-09-25 19:18] LABS: INR 1.2; Prothrombin Time 12.6 Seconds (9.4-12.1)
[2017-09-25 19:20] LABS: Activated Partial Thrombo Time 27.5 Seconds (26.0-36.0)
[2017-09-25 19:30] LABS: Albumin 3.2 g/dL (3.5-5.7); Albumin/Globulin Ratio 0.8 (1.1-2.2); Bilirubin,Direct 0.2 mg/dL (0.0-0.2); Bilirubin,Indirect 0.6 mg/dL (0.0-1.2); Bilirubin,Total 0.8 mg/dL (0.3-1.0); Calcium 8.3 mg/dL (8.6-10.3); Total Protein 7.2 g/dL (6.4-8.9)
[2017-09-25 19:41] LABS: Thyroid Stimulating Hormone 3.9 mcIU/mL (0.340-5.600)
[2017-09-25] MEDS ORDERED: 0.9 % Sodium Chloride 500 ML IVC ONE (19:50)
[2017-09-25 20:34] LABS: Bilirubin,Urine Negative (Negative); Blood,Urine Small (Negative); Clarity,Urine Turbid (Clear); Color,Urine Yellow (Yellow); Glucose,Urine (UA) Normal (Normal); Ketones,Urine Negative (Negative); Leukocyte Esterase,Urine Large (Negative); Nitrite,Urine Negative (Negative); PH,Urine 5.5 pH Units (5.0-8.0); Protein,Urine Trace mg/dL (Neg-Trace); Specific Gravity,Urine 1.014 (1.010-1.025); Urobilinogen,Urine Normal (Normal)
[2017-09-25 20:36] LABS: RBC,Urine 0-3 per hpf (0-3); Squamous Epithelial Cell,Urine Many per lpf (None-Few); WBC,Urine TNTC per hpf (0-3)
[2017-09-25 20:48] LABS: Bacteria,Urine Moderate per hpf (None-Few)
[2017-09-25 20:49] LABS: Hyaline Casts,Urine None Seen per lpf (None-Few); Yeast,Urine Many per hpf (None Seen)
[2017-09-25] MEDS ORDERED: Bisacodyl 10 MG RECTAL SUPPOSITORY RC PRN (22:35)
[2017-09-25] MEDS ORDERED: Ipratropium/Albuterol Neb 3 ML IH PRN (22:36)
[2017-09-25] MEDS ORDERED: Ondansetron 4 MG/2 ML VIAL IVP PRN (22:37)
[2017-09-25] MEDS ORDERED: Naloxone 0.4 MG/ML INJ IVP PRN (22:37)
[2017-09-25] MEDS ORDERED: Acetaminophen 325 MG TABLET PO PRN (22:37)
--- NOTE | 2017-09-25 22:46 | Internal Med History&Physical ---
Date of Encounter: 09/25/17 Time of Encounter: 22:43 Assessment and Plan (1) Acute metabolic encephalopathy Current visit: Yes Status: Acute Acute metabolic encephalopathy likely secondary to UTI in the setting of dementia Continue Rocephin and sent a urine culture Will adjust antibiotic therapy accordingly Start IV fluids and hold Lasix Fall precautions, aspiration precautions, consult speech therapy Omeprazole for GI prophylaxis and subcutaneous heparin for DVT prophylaxis. The patient will be admitted as inpatient, expected to stay more than 2 midnights. DNR CC arrest DNI. Time spent on this admission 40 minutes. (2) WILL (acute kidney injury) Current visit: No Status: Acute Acute on chronic renal failure/chronic kidney disease stage III Continue IV fluids and hold Lasix Consider nephrology consult if not improving. (3) UTI (urinary tract infection) Current visit: Yes Status: Acute Qualifiers: Urinary tract infection type: acute cystitis Hematuria presence: without hematuria Qualified Code(s): N30.00 - Acute cystitis without hematuria (4) COPD (chronic obstructive pulmonary disease) Current visit: Yes Status: Acute No exacerbation, may continued 1 Qualifiers: COPD type: unspecified COPD Qualified Code(s): J44.9 - Chronic obstructive pulmonary disease, unspecified (5) CHF (congestive heart failure) Current visit: Yes Status: Acute Diastolic CHF, no exacerbation Qualifiers: Congestive heart failure type: diastolic Congestive heart failure chronicity: chronic Qualified Code(s): I50.32 - Chronic diastolic (congestive ) heart failure (6) Atrial fibrillation Current visit: No Status: Chronic Not on anticoagulation, stable Qualifiers: Atrial fibrillation type: unspecified Qualified Code(s): I48.91 - Unspecified atrial fibrillation (7) Fracture of lesser trochanter of femur Current visit: No Status: Acute Qualifiers: Encounter type: initial encounter Fracture type: closed Fracture alignment: nondisplaced Laterality: right Qualified Code(s): S72.124A - Nondisplaced fracture of lesser trochanter of right femur, initial encounter for closed fracture (8) Inferior pubic ramus fracture Current visit: No Status: Acute Qualifiers: Encounter type: initial encounter Fracture type: closed Laterality: right Qualified Code(s): S32.591A - Other specified fracture of right pubis, initial encounter for closed fracture Internal Medicine - H&P: HPI Chief complaint: Altered mental status Admitted From: Emergency Dept History of present illness: Ms. Handy is a 86 year old female with a past medical history of dementia, recently discharged from the hospital which was treated for an trochanteric fracture and pubic ramus fracture, also has history of atrial fibrillation not on anticoagulation and diastolic CHF. [facility] order lab work that showed acute renal failure. Her creatinine today is 3.56 and her baseline is around 1.49. CT scan of the head does not show any abnormalities, chest x-ray is unremarkable and the UA shows too numerous to count white blood cells with moderate bacteria. No culture was performed from the laboratory. Her pressure is 148/56. The patient is very confused disoriented and not able to provide any history Past Med Surg Social Fam HX - Past Medical History Medical history: aortic aneurysm (AAA repair), arthritis, cancer (Known), CHF ( Moderate diastolic dysfunction), dementia, GERD, glaucoma, hyperlipidemia, hypertension, malignancy, venous stasis, other (Sacral pressure ulcer, UTI that grew Staphylococcus lugdunensis, resistant to ciprofloxacin and sensitive to oxacillin, chronic kidney disease stage III, COPD not oxygen dependent, atrial fibrillation not on anticoagulation) Psychiatric history: anxiety, depression, panic disorder - Past Surgical History Surgical History: cancer surgery, hip replacement, hysterectomy, other (Cardiac valve replaced/bioprosthetic aortic valve, cardiac catheterization, AAA repair, fracture of the pubic ramus and trochanter, hysterectomy) - Social History Smoking Status: Never smoker Smokeless Tobacco Status: No Alcohol use: occasionally Drug use: none - Family History Father Living Status: Age at : 74 Cause of : MS Hx Family Cardiac Disorders: Yes Mother Living Status: Age at : 98 Hx Family Cardiac Disorders: No Hx Family Respiratory Disorders: No Hx Family Cancer: Yes Hx Family GI Disorders: No Hx Family Endocrine Disorder: No Hx Family Neuromuscular Disorders: No Hx Family Neurologic Disorders: Yes Hx Family HEENT Disorders: No Hx Family Autoimmune Disorders: No - Additional Family History Additional family history: Unknown family history Internal Medicine - H&P: Meds Cholecalciferol (D-3) [Vitamin D] 1,000 unit PO DAILY 06/03/17 [History] Docusate [Colace] 100 mg PO HS 06/03/17 [History] Multivitamin-Min/Iron/FA/Vit K [Multi-Day Plus Minerals Tablet] 1 each PO DAILY 06/03/17 [History] Omeprazole [PriLOSEC] 20 mg PO DAILY 06/03/17 [History] Simvastatin [Zocor] 10 mg PO HS 06/03/17 [History] Furosemide [Lasix] 40 mg PO BID #0 06/09/17 [Rx] Ipratropium/Albuterol Neb [Duoneb] 3 ml IH QID PRN inh 06/09/17 [Rx] Latanoprost [Xalatan] 1 drop BOTH EYES HS bottle 06/09/17 [Rx] Potassium Chloride [Klor-Con 10] 10 meq PO BID 09/15/17 [History] HYDROcodone/Acet 5/325 mg [[place] 5-325 mg] 1 tab PO Q4HR PRN #12 tablet [Rx] Aspirin Enteric Coated [Aspirin EC] 81 mg PO DAILY 09/25/17 [History] Bisacodyl [Dulcolax] 10 mg RC DAILY PRN 09/25/17 [History] Ferrous Sulfate 325 mg PO DAILY 09/25/17 [History] LORazepam [Ativan] 0.5 mg PO QAM 09/25/17 [History] MOM Conc [Milk of Magnesia Conc] 30 ml PO DAILY PRN 09/25/17 [History] 3 Allergy/AdvReac Type Severity Reaction Status Date / Time Sulfa (Sulfonamide Allergy See Verified 09/23/17 09:26 Antibiotics) Comments All Systems PM: A 10-system review of systems was performed and is negative for pertinent findings except as documented above in the HPI. Review of systems: Unable to be completed due to the patient's dementia and confusion - Constitutional Vitals: Temp Pulse Resp BP Pulse Ox 98.4 F 75 19 148/56 98 09/25/17 21:46 09/25/17 21:46 09/25/17 21:46 09/25/17 21:46 09/25/17 21:46 General appearance: Present: A&O X 1 - Head Head exam: Present: atraumatic, normocephalic - Eye Eye exam: Present: PERRL, conjuntiva pink, sclera anicteric Pupils: Present: PERRL - Neck Neck exam general surgery: Present: supple, trachea midline. Absent: lymphadenopathy - Respiratory Respiratory exam: Present: CTAB. Absent: accessory muscle use, rales, rhonchi, wheezes - Cardiovascular Cardiovascular exam: Present: RRR, +S1, +S2. Absent: diastolic murmur, gallop, rubs, systolic murmur - GI/Abdominal GI/Abdominal exam: Present: normal bowel sounds, soft, no peritoneal signs. Absent: distended, tenderness - Extremities Exam Extremities exam: Present: pedal edema (+1 nonpitting edema in both lower extremities), warm, radial pulses palpable and symmetrical. Absent: calf tenderness, cyanotic - Neurological Exam Neurological exam: Present: CN II-XII intact, no focal deficits. Absent: oriented X3 (Oriented only), pronater drift, facial droop, speech deficit - Skin Skin exam: Present: dry. Absent: intact (Pressure sacral ulcer) Internal Med - H&P Results - Labs CBC & Chem 7: 09/25/17 19:01 09/25/17 19:01
[2017-09-25] MEDS: cefTRIAXone 1,000 MG in Water for inj. (sterile) 20 ML 10 ML IVP SCH (23:39)
[2017-09-25] MEDS: *HR* Morphine 2 MG/ML SYRINGE IVP PRN (23:39)
[2017-09-25] MEDS: *HR* Heparin 5,000 UNIT/ML VIAL SQ SCH (23:40)
[2017-09-25] MEDS: 0.9 % Sodium Chloride 1,000 ML IVC SCH (23:49)
[2017-09-26 05:30] LABS: Basophils % 0.3 %; Eosinophils # 0.5 K/mcL (0.0-0.6); Eosinophils % 4.5 %; Hemoglobin 8.8 g/dL (11.5-15.4); Immature Granulocytes % 1.1 % (0-4); Lymphocytes # 0.7 K/mcL (0.6-4.6); Lymphocytes % 5.9 %; Mean Corpuscular HGB Conc 33.8 g/dL (31.6-35.5); Mean Corpuscular Hemoglobin 31.3 pg (28.0-33.3); Mean Corpuscular Volume 92.5 fL (83.0-100.0); Monocytes # 1.2 K/mcL (0.0-1.3); Monocytes % 9.9 %; Neutrophils # 9.4 K/mcL (1.6-8.9); Platelet Count 255 K/mcL (140-400); Red Blood Count 2.81 M/mcL (3.82-4.97); Red Cell Distribution Width 13.9 % (11.5-14.5); Segmented Neutrophils % 78.3 %
[2017-09-26] MEDS: *HR* Heparin 5,000 UNIT/ML VIAL SQ SCH ×2 (05:47→17:35)
[2017-09-26] MEDS: *HR* Morphine 2 MG/ML SYRINGE IVP PRN ×3 (05:47→20:35)
[2017-09-26 05:56] LABS: Calcium 8.1 mg/dL (8.6-10.3); Potassium 4.1 mEq/L (3.5-5.1)
[2017-09-26] MEDS: Aspirin Enteric Coated 81 MG Tablet PO SCH (08:18)
[2017-09-26] MEDS: *HR* LORazepam 0.5 MG TABLET PO SCH (08:19)
[2017-09-26] MEDS: 0.9 % Sodium Chloride 1,000 ML IVC SCH (12:19)
--- NOTE | 2017-09-26 18:34 | Internal Med Progress Note ---
Date of Encounter: 09/28/17 Time of Encounter: 18:31 - Assessment and plan (1) Acute metabolic encephalopathy Current Visit: Yes Status: Acute Assessment and plan: 87/female Admitted with altered mental status. She was at her PCPs office where the labs were checked and they found to be abnormal. Noted that she has a worsening creatinine and occasional shortness of breath. Patient was hospitalized and was started on ceftriaxone in view of possible urinary tract infection as a sore for acute endocrinopathy. Patient started gradually improving. Plan: Will continue present treatment for now. Close monitoring of the vitals and respiratory status. Family at bedside and diagnosis updated to the family. CODE STATUS as mentioned above. (2) WILL (acute kidney injury) Current Visit: No Status: Acute Assessment and plan: Worsening creatinine is likely secondary to multifactorial etiology. This can be prerenal in terms of dehydration/decreased oral intake. This can be renal in origin in view of acute tubular necrosis. Very unlikely postrenal cause as patient denies any issues with the urine output. Plan: We will continue monitoring this patient closely. (3) UTI (urinary tract infection) Current Visit: Yes Status: Acute Assessment and plan: See above Qualifiers: Urinary tract infection type: acute cystitis Hematuria presence: without hematuria Qualified Code(s): N30.00 - Acute cystitis without hematuria (4) COPD (chronic obstructive pulmonary disease) Current Visit: Yes Status: Acute Assessment and plan: Stable Qualifiers: COPD type: unspecified COPD Qualified Code(s): J44.9 - Chronic obstructive pulmonary disease, unspecified (5) CHF (congestive heart failure) Current Visit: Yes Status: Acute Assessment and plan: Asymptomatic for now. Qualifiers: Congestive heart failure type: diastolic Congestive heart failure chronicity: chronic Qualified Code(s): I50.32 - Chronic diastolic (congestive ) heart failure - Subjective Interval history: Patient seen and examined. Chart reviewed. Nexium patient is comfortably lying in bed. Patient denies any chest pain, nausea, vomiting, abdominal pain, - Constitutional Vitals: Temp Pulse Resp BP Pulse Ox 98.2 F 72 18 142/57 92 09/26/17 15:31 09/26/17 15:31 09/26/17 15:31 09/26/17 15:31 09/26/17 15:31 General appearance: Present: A&O X 1 - Head Head exam: Present: atraumatic, normocephalic - Eye Eye exam: Present: PERRL, conjuntiva pink, sclera anicteric Pupils: Present: PERRL - Neck Neck exam general surgery: Present: supple, trachea midline. Absent: lymphadenopathy - Respiratory Respiratory exam: Present: CTAB. Absent: accessory muscle use, rales, rhonchi, wheezes - Cardiovascular Cardiovascular exam: Present: RRR, +S1, +S2. Absent: diastolic murmur, gallop, rubs, systolic murmur - GI/Abdominal GI/Abdominal exam: Present: normal bowel sounds, soft, no peritoneal signs. Absent: distended, tenderness - Extremities Exam Extremities exam: Present: warm, radial pulses palpable and symmetrical. Absent : calf tenderness, cyanotic, pedal edema - Neurological Exam Neurological exam: Present: CN II-XII intact, oriented X3, no focal deficits. Absent: pronater drift, facial droop, speech deficit - Skin Skin exam: Present: dry, intact Internal Medicine: Result - Labs CBC & Chem 7: 09/28/17 02:50 09/28/17 02:50 Labs: Short CBC 09/26/17 Range/Units 04:30 WBC 12.0 H (4.3-11.1) K/mcL Hgb 8.8 L (11.5-15.4) g/dL Hct 26.0 L (35.3-44.9) % Plt Count 255 (140-400) K/mcL Neutrophils # 9.4 H (1.6-8.9) K/mcL BMP 09/26/17 04:30 Sodium 136 Potassium 4.1 Chloride 105 Carbon Dioxide 20 L BUN 74 H Creatinine 3.63 H Glucose 111 H Calcium 8.1 L - ABG Interpretation ABG results: PT/INR, D-dimer PT 12.6 Seconds (9.4-12.1) H 09/25/17 19:01 Consult Discharge Plan - Plan Referrals: Yuri Beck [Primary Care Provider] - (Patient will follow up at the [facility])
[2017-09-26] MEDS: cefTRIAXone 1,000 MG in Water for inj. (sterile) 20 ML 10 ML IVP SCH (20:18)
[2017-09-26] MEDS: Latanoprost 2.5 ML BOTTLE BOTH EYES SCH (20:19)
[2017-09-26] MEDS: *HR* OxyCODONE Immed Rel 5 MG TABLET PO PRN (23:31)
[2017-09-27] MEDS: 0.9 % Sodium Chloride 1,000 ML IVC SCH ×2 (01:04→13:21)
[2017-09-27 04:54] LABS: Basophils # 0.1 K/mcL (0.0-0.2); Basophils % 0.5 %; Eosinophils # 0.6 K/mcL (0.0-0.6); Eosinophils % 5.8 %; Hematocrit 26.6 % (35.3-44.9); Hemoglobin 8.9 g/dL (11.5-15.4); Immature Granulocytes % 0.9 % (0-4); Lymphocytes # 0.8 K/mcL (0.6-4.6); Lymphocytes % 7.4 %; Mean Corpuscular HGB Conc 33.5 g/dL (31.6-35.5); Mean Corpuscular Hemoglobin 31.9 pg (28.0-33.3); Mean Corpuscular Volume 95.3 fL (83.0-100.0); Mean Platelet Volume 10.1 fL (9.4-12.4); Monocytes # 0.9 K/mcL (0.0-1.3); Monocytes % 9.1 %; Neutrophils # 7.8 K/mcL (1.6-8.9); Platelet Count 252 K/mcL (140-400); Red Blood Count 2.79 M/mcL (3.82-4.97); Red Cell Distribution Width 14.2 % (11.5-14.5); Segmented Neutrophils % 76.3 %
[2017-09-27] MEDS: *HR* Heparin 5,000 UNIT/ML VIAL SQ SCH ×2 (05:11→21:22)
[2017-09-27 05:29] LABS: Albumin/Globulin Ratio 0.8 (1.1-2.2); Bilirubin,Total 0.5 mg/dL (0.3-1.0); Globulin 3.8 g/dL (2.4-3.5); Potassium 4.1 mEq/L (3.5-5.1); Total Protein 6.8 g/dL (6.4-8.9)
[2017-09-27] MEDS: Aspirin Enteric Coated 81 MG Tablet PO SCH (10:04)
[2017-09-27] MEDS: *HR* LORazepam 0.5 MG TABLET PO SCH (10:04)
[2017-09-27] MEDS: *HR* Morphine 2 MG/ML SYRINGE IVP PRN (15:09)
--- NOTE | 2017-09-27 18:39 | Internal Med Progress Note ---
Date of Encounter: 09/28/17 Time of Encounter: 18:38 - Assessment and plan (1) Acute metabolic encephalopathy Current Visit: Yes Status: Acute Assessment and plan: 87/female Admitted with altered mental status. She was at her PCPs office where the labs were checked and they found to be abnormal. Noted that she has a worsening creatinine and occasional shortness of breath. Patient was hospitalized and was started on ceftriaxone in view of possible urinary tract infection as a sore for acute endocrinopathy. Patient started gradually improving. Plan: Will continue present treatment for now. Close monitoring of the vitals and respiratory status. Family at bedside and diagnosis updated to the family. CODE STATUS as mentioned above. 09/27/2017 Patient's mental status improved a lot. Noted that urine culture is a yeast species which is likely contaminant. Patient speaks very legitimate language and has some questions which were answered at length. Patient's family is at bedside. I had a long discussion regarding patient's condition with the patient's family member. Patient's family member has clearly of opinion that the do not want any invasive treatment. Plan: We will continue antibiotics/IV fluids today and we will repeat labs tomorrow If creatinine is worsening then we will think in terms of nephrologic consult. Patient's son and daughter clearly mentioned that it is patient's wish not to continue any aggressive treatment. (2) WILL (acute kidney injury) Current Visit: No Status: Acute Assessment and plan: Worsening creatinine is likely secondary to multifactorial etiology. This can be prerenal in terms of dehydration/decreased oral intake. This can be renal in origin in view of acute tubular necrosis. Very unlikely postrenal cause as patient denies any issues with the urine output. Plan: We will continue monitoring this patient closely. 09/27/2017 Patient's creatinine remained same but little bit on the worsening side. BUN unchanged. Patient is still voiding urine. (3) UTI (urinary tract infection) Current Visit: Yes Status: Acute Assessment and plan: See above Qualifiers: Urinary tract infection type: acute cystitis Hematuria presence: without hematuria Qualified Code(s): N30.00 - Acute cystitis without hematuria (4) COPD (chronic obstructive pulmonary disease) Current Visit: Yes Status: Acute Assessment and plan: Stable Qualifiers: COPD type: unspecified COPD Qualified Code(s): J44.9 - Chronic obstructive pulmonary disease, unspecified (5) CHF (congestive heart failure) Current Visit: Yes Status: Acute Assessment and plan: Asymptomatic for now. Qualifiers: Congestive heart failure type: diastolic Congestive heart failure chronicity: chronic Qualified Code(s): I50.32 - Chronic diastolic (congestive ) heart failure - Subjective Interval history: Patient seen and examined. Chart reviewed. Nexium patient is comfortably lying in bed. Patient denies any chest pain, nausea, vomiting, abdominal pain, 09/27/2017 Patient seen and examined. Chart reviewed. Patient is comfortably lying in the bed. Patient denies any chest pain, shortness of breath, nausea, vomiting, abdominal pain, dysuria or diarrhea. - Constitutional Vitals: Temp Pulse Resp BP Pulse Ox 98.5 F 74 16 133/65 94 09/27/17 16:03 09/27/17 16:03 09/27/17 16:03 09/27/17 16:03 09/27/17 16:03 General appearance: Present: A&O X 1 - Head Head exam: Present: atraumatic, normocephalic - Eye Eye exam: Present: PERRL, conjuntiva pink, sclera anicteric Pupils: Present: PERRL - Neck Neck exam general surgery: Present: supple, trachea midline. Absent: lymphadenopathy - Respiratory Respiratory exam: Present: CTAB. Absent: accessory muscle use, rales, rhonchi, wheezes - Cardiovascular Cardiovascular exam: Present: RRR, +S1, +S2. Absent: diastolic murmur, gallop, rubs, systolic murmur - GI/Abdominal GI/Abdominal exam: Present: normal bowel sounds, soft, no peritoneal signs. Absent: distended, tenderness - Extremities Exam Extremities exam: Present: warm, radial pulses palpable and symmetrical. Absent : calf tenderness, cyanotic, pedal edema - Neurological Exam Neurological exam: Present: CN II-XII intact, oriented X3, no focal deficits. Absent: pronater drift, facial droop, speech deficit - Skin Skin exam: Present: dry, intact Internal Medicine: Result - Labs CBC & Chem 7: 09/28/17 02:50 09/28/17 02:50 Labs: Short CBC 09/27/17 Range/Units 04:17 WBC 10.3 (4.3-11.1) K/mcL Hgb 8.9 L (11.5-15.4) g/dL Hct 26.6 L (35.3-44.9) % Plt Count 252 (140-400) K/mcL Neutrophils # 7.8 (1.6-8.9) K/mcL BMP 09/27/17 04:17 Sodium 139 Potassium 4.1 Chloride 110 H Carbon Dioxide 21 L BUN 73 H Creatinine 4.08 H Glucose 93 Calcium 8.0 L Liver Function 09/27/17 Range/Units 04:17 Total Bilirubin 0.5 (0.3-1.0) mg/dL AST 16 (13-39) Units/L ALT 9 (7-52) Units/L Alkaline Phosphatase 97 (34-104) Units/L Albumin 3.0 L (3.5-5.7) g/dL - ABG Interpretation ABG results: PT/INR, D-dimer PT 12.6 Seconds (9.4-12.1) H 09/25/17 19:01 Consult Discharge Plan - Plan Referrals: Yuri Beck [Primary Care Provider] - (Patient will follow up at the [facility])
--- NOTE | 2017-09-27 19:11 | Electrocardiograph Report ---
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
[2017-09-27] MEDS: cefTRIAXone 1,000 MG in Water for inj. (sterile) 20 ML 10 ML IVP SCH (21:20)
[2017-09-27] MEDS: *HR* OxyCODONE Immed Rel 5 MG TABLET PO PRN (21:23)
[2017-09-27] MEDS: Latanoprost 2.5 ML BOTTLE BOTH EYES SCH (21:26)
[2017-09-28] MEDS: 0.9 % Sodium Chloride 1,000 ML IVC SCH ×2 (02:55→21:04)
[2017-09-28 03:36] LABS: Basophils % 0.4 %; Eosinophils # 0.6 K/mcL (0.0-0.6); Eosinophils % 5.1 %; Hematocrit 26.3 % (35.3-44.9); Hemoglobin 8.6 g/dL (11.5-15.4); Immature Granulocytes % 0.8 % (0-4); Lymphocytes # 0.6 K/mcL (0.6-4.6); Lymphocytes % 5.3 %; Mean Corpuscular HGB Conc 32.7 g/dL (31.6-35.5); Mean Corpuscular Hemoglobin 31.4 pg (28.0-33.3); Mean Platelet Volume 10.1 fL (9.4-12.4); Monocytes # 0.8 K/mcL (0.0-1.3); Platelet Count 247 K/mcL (140-400); Red Blood Count 2.74 M/mcL (3.82-4.97); Red Cell Distribution Width 14.2 % (11.5-14.5); Segmented Neutrophils % 81.4 %
[2017-09-28 03:57] LABS: Albumin 2.8 g/dL (3.5-5.7); Albumin/Globulin Ratio 0.8 (1.1-2.2); Bilirubin,Total 0.4 mg/dL (0.3-1.0); Calcium 7.9 mg/dL (8.6-10.3); Globulin 3.6 g/dL (2.4-3.5); Potassium 4.2 mEq/L (3.5-5.1); Total Protein 6.4 g/dL (6.4-8.9)
[2017-09-28] MEDS: *HR* Heparin 5,000 UNIT/ML VIAL SQ SCH ×2 (05:54→18:09)
[2017-09-28] MEDS: Aspirin Enteric Coated 81 MG Tablet PO SCH (08:28)
[2017-09-28] MEDS: *HR* LORazepam 0.5 MG TABLET PO SCH (08:29)
[2017-09-28] MEDS: *HR* Morphine 2 MG/ML SYRINGE IVP PRN ×2 (13:00→21:04)
--- NOTE | 2017-09-28 16:29 | Internal Med Progress Note ---
Date of Encounter: 09/28/17 Time of Encounter: 16:23 - Assessment and plan (1) Acute metabolic encephalopathy Current Visit: Yes Status: Acute Assessment and plan: 87/female Admitted with altered mental status. She was at her PCPs office where the labs were checked and they found to be abnormal. Noted that she has a worsening creatinine and occasional shortness of breath. Patient was hospitalized and was started on ceftriaxone in view of possible urinary tract infection as a sore for acute endocrinopathy. Patient started gradually improving. Plan: Will continue present treatment for now. Close monitoring of the vitals and respiratory status. Family at bedside and diagnosis updated to the family. CODE STATUS as mentioned above. 09/27/2017 Patient's mental status improved a lot. Noted that urine culture is a yeast species which is likely contaminant. Patient speaks very legitimate language and has some questions which were answered at length. Patient's family is at bedside. I had a long discussion regarding patient's condition with the patient's family member. Patient's family member has clearly of opinion that the do not want any invasive treatment. Plan: We will continue antibiotics/IV fluids today and we will repeat labs tomorrow If creatinine is worsening then we will think in terms of nephrologic consult. Patient's son and daughter clearly mentioned that it is patient's wish not to continue any aggressive treatment. 09/28/2017 Patient still has worsening creatinine but stable BUN. [place] consult with the nephrology I discussed this case with Dr. Rose. Patient is progressing to end-stage renal disease. Patient and her family members has no intention to go with any renal replacement therapy or hemodialysis patient's son clearly mentioned that they prefer to call hospice/palliative care tomorrow instead of continuing any heroic measures. CT scan of the abdomen and pelvis often without contrast which showed atrophic kidney. We will call palliative hospice tomorrow as per the family request. (2) WILL (acute kidney injury) Current Visit: No Status: Acute Assessment and plan: Worsening creatinine is likely secondary to multifactorial etiology. This can be prerenal in terms of dehydration/decreased oral intake. This can be renal in origin in view of acute tubular necrosis. Very unlikely postrenal cause as patient denies any issues with the urine output. Plan: We will continue monitoring this patient closely. 09/27/2017 Patient's creatinine remained same but little bit on the worsening side. BUN unchanged. Patient is still voiding urine. 09/28/2017 See above (3) UTI (urinary tract infection) Current Visit: Yes Status: Acute Assessment and plan: See above Qualifiers: Urinary tract infection type: acute cystitis Hematuria presence: without hematuria Qualified Code(s): N30.00 - Acute cystitis without hematuria (4) COPD (chronic obstructive pulmonary disease) Current Visit: Yes Status: Acute Assessment and plan: Stable Qualifiers: COPD type: unspecified COPD Qualified Code(s): J44.9 - Chronic obstructive pulmonary disease, unspecified (5) CHF (congestive heart failure) Current Visit: Yes Status: Acute Assessment and plan: Asymptomatic for now. Qualifiers: Congestive heart failure type: diastolic Congestive heart failure chronicity: chronic Qualified Code(s): I50.32 - Chronic diastolic (congestive ) heart failure - Subjective Interval history: Patient seen and examined. Chart reviewed. Nexium patient is comfortably lying in bed. Patient denies any chest pain, nausea, vomiting, abdominal pain, 09/27/2017 Patient seen and examined. Chart reviewed. Patient is comfortably lying in the bed. Patient denies any chest pain, shortness of breath, nausea, vomiting, abdominal pain, dysuria or diarrhea. 09/28/2017 Patient seen and examined. Chart reviewed. is more alert and oriented as compared to yesterday. Patient's family is at bedside. - Constitutional Vitals: Temp Pulse Resp BP Pulse Ox 97.9 F 73 20 125/61 96 09/28/17 15:48 09/28/17 15:48 09/28/17 15:48 09/28/17 15:48 09/28/17 15:48 General appearance: Present: A&O X 1 - Head Head exam: Present: atraumatic, normocephalic - Eye Eye exam: Present: PERRL, conjuntiva pink, sclera anicteric Pupils: Present: PERRL - Neck Neck exam general surgery: Present: supple, trachea midline. Absent: lymphadenopathy - Respiratory Respiratory exam: Present: CTAB. Absent: accessory muscle use, rales, rhonchi, wheezes - Cardiovascular Cardiovascular exam: Present: RRR, +S1, +S2. Absent: diastolic murmur, gallop, rubs, systolic murmur - GI/Abdominal GI/Abdominal exam: Present: normal bowel sounds, soft, no peritoneal signs. Absent: distended, tenderness - Extremities Exam Extremities exam: Present: warm, radial pulses palpable and symmetrical. Absent : calf tenderness, cyanotic, pedal edema - Neurological Exam Neurological exam: Present: CN II-XII intact, oriented X3, no focal deficits. Absent: pronater drift, facial droop, speech deficit - Skin Skin exam: Present: dry, intact Internal Medicine: Result - Labs CBC & Chem 7: 09/28/17 02:50 09/28/17 02:50 Labs: Short CBC 09/28/17 Range/Units 02:50 WBC 11.0 (4.3-11.1) K/mcL Hgb 8.6 L (11.5-15.4) g/dL Hct 26.3 L (35.3-44.9) % Plt Count 247 (140-400) K/mcL Neutrophils # 9.0 H (1.6-8.9) K/mcL BMP 09/28/17 02:50 Sodium 138 Potassium 4.2 Chloride 111 H Carbon Dioxide 19 L BUN 70 H Creatinine 4.28 H Glucose 102 Calcium 7.9 L Liver Function 09/28/17 Range/Units 02:50 Total Bilirubin 0.4 (0.3-1.0) mg/dL AST 13 (13-39) Units/L ALT 8 (7-52) Units/L Alkaline Phosphatase 95 (34-104) Units/L Albumin 2.8 L (3.5-5.7) g/dL - ABG Interpretation ABG results: PT/INR, D-dimer PT 12.6 Seconds (9.4-12.1) H 09/25/17 19:01 - Impressions Impressions Abdomen/Pelvis CT 09/28/17 13:00 IMPRESSION: 1. Trace pleural effusions and bibasilar atelectasis 2. Chronic atrophy of the left kidney with marked dilatation of the collecting system. 3. Mildly distended gallbladder with gallstones 4. 3 cm AAA, unchanged RECOMMENDATIONS: Managing Abdominal Aortic Aneurysms 3.0-3.4 cm: Every 3 years. Reference: J Vasc Surg. 2008;50(4 Suppl):S2-49 D/ / Gomez Williamson MD / Gomez Williamson MD Interpreting Provider: Gomez Williamson MD Consult Discharge Plan - Plan Referrals: Yuri Beck [Primary Care Provider] - (Patient will follow up at the [facility])
[2017-09-28] MEDS: Latanoprost 2.5 ML BOTTLE BOTH EYES SCH (21:05)
[2017-09-28] MEDS: cefTRIAXone 1,000 MG in Water for inj. (sterile) 20 ML 10 ML IVP SCH (21:05)
[2017-09-28] MEDS: *HR* OxyCODONE Immed Rel 5 MG TABLET PO PRN (21:13)
[2017-09-29 04:39] LABS: Basophils % 0.4 %; Eosinophils # 0.6 K/mcL (0.0-0.6); Eosinophils % 5.6 %; Hematocrit 27.4 % (35.3-44.9); Hemoglobin 8.8 g/dL (11.5-15.4); Immature Granulocytes % 0.6 % (0-4); Lymphocytes # 0.7 K/mcL (0.6-4.6); Lymphocytes % 6.4 %; Mean Corpuscular HGB Conc 32.1 g/dL (31.6-35.5); Mean Corpuscular Hemoglobin 31.3 pg (28.0-33.3); Mean Corpuscular Volume 97.5 fL (83.0-100.0); Mean Platelet Volume 10.3 fL (9.4-12.4); Monocytes # 0.9 K/mcL (0.0-1.3); Neutrophils # 8.7 K/mcL (1.6-8.9); Platelet Count 252 K/mcL (140-400); Red Blood Count 2.81 M/mcL (3.82-4.97); Red Cell Distribution Width 14.1 % (11.5-14.5)
[2017-09-29 04:45] LABS: Albumin 2.9 g/dL (3.5-5.7); Albumin/Globulin Ratio 0.8 (1.1-2.2); Bilirubin,Total 0.4 mg/dL (0.3-1.0); Calcium 8.1 mg/dL (8.6-10.3); Globulin 3.6 g/dL (2.4-3.5); Total Protein 6.5 g/dL (6.4-8.9)
[2017-09-29] MEDS: *HR* Heparin 5,000 UNIT/ML VIAL SQ SCH (05:46)
[2017-09-29 07:00] VITALS: BP 120/63
[2017-09-29] MEDS: Aspirin Enteric Coated 81 MG Tablet PO SCH (07:58)
[2017-09-29] MEDS: *HR* LORazepam 0.5 MG TABLET PO SCH (07:58)
--- NOTE | 2017-09-29 09:36 | Palliative - Consult Note ---
Date of Encounter: 09/29/17 Time of Encounter: 08:50 - Assessment and Plan (1) Goals of care, counseling/discussion Current Visit: Yes Status: Acute Assessment and plan: cODE STATUS changedfromDNR CCA DNI to DNR comfort care only Per discussion with family plan is for return to [facility] The patient is a long-term resident at [facility]. And family wishes for her To stay there. Patient meets hospice ccreatinine clearance of less than 10 in addition to her multiple comorbidities (2) CHF exacerbation Current Visit: No Status: Acute Assessment and plan: this is stable at this time Patient is breathing well. Qualifiers: Congestive heart failure type: diastolic Qualified Code(s): I50.33 - Acute on chronic diastolic (congestive) heart failure (3) Urinary tract infection with hematuria Current Visit: No Status: Acute Assessment and plan: reatment plan per hospitalis Qualifiers: Urinary tract infection type: site unspecified Qualified Code(s): N39.0 - Urinary tract infection, site not specified; R31.9 - Hematuria, unspecified; R31.9 - Hematuria, unspecified (4) WILL (acute kidney injury) Current Visit: No Status: Acute Assessment and plan: this is now severe enough to require dialysis.patient and family do not wish to havedialysis,the patient is still constance and therefore the prognosis is weeks tomonths (5) 2nd degree AV block Current Visit: Yes Status: Acute Assessment and plan: as the patient and family do not wish to have any invasive rx we will continue to merely watch this Palliative-CN HPI - Data of Consult Patient: new to practice Requesting Physician: Nasir Shah DO Primary Care Provider: Yuri Beck - Consult Narrative Palliative Care/Comfort Measures: Palliative care Reason for consult: hospice questions, goals of care History of present illness: Ms. Handy is a 87 year old female was brought into the hospit it was worsening creatinine Had a urinary tract inon this seemed to be ge and is continued to worsen. He did not wish to proceed with any dialysis. alliativeCare was consulted per 's requestRe : Goals of care and hospeligibility. Patient is nonverbal at this time and family is all the hiis the medical power of a and plan. [facility]. On WEEKS AGO PATIENT FELL ANDFRACTURED HIP AND PELVIS> T to be operative. Patient has be since then and a very rapid rate b At at this time the patient is not complaining of anythin and does not appear to be in Any distress CC: Nasir Shah, DO ams Past Med Surg Social Fam HX - Past Medical History Medical history: aortic aneurysm, arthritis, cancer, CHF, dementia, GERD, glaucoma, hyperlipidemia, hypertension, malignancy, venous stasis Psychiatric history: anxiety, depression, panic disorder - Past Surgical History Surgical History: cancer surgery, hip replacement, hysterectomy, other - Social History Smoking Status: Never smoker Smokeless Tobacco Status: No Alcohol use: occasionally Drug use: none - Family History Father Living Status: Age at : 74 Cause of : [place] Hx Family Cardiac Disorders: Yes Mother Living Status: Age at : 98 Hx Family Cardiac Disorders: No Hx Family Respiratory Disorders: No Hx Family Cancer: Yes Hx Family GI Disorders: No Hx Family Endocrine Disorder: No Hx Family Neuromuscular Disorders: No Hx Family Neurologic Disorders: Yes Hx Family HEENT Disorders: No Hx Family Autoimmune Disorders: No Medications and Allergies Cholecalciferol (D-3) [Vitamin D] 1,000 unit PO DAILY 06/03/17 [History] Docusate [Colace] 100 mg PO HS 06/03/17 [History] Multivitamin-Min/Iron/FA/Vit K [Multi-Day Plus Minerals Tablet] 1 each PO DAILY 06/03/17 [History] Omeprazole [PriLOSEC] 20 mg PO DAILY 06/03/17 [History] Simvastatin [Zocor] 10 mg PO HS 06/03/17 [History] Furosemide [Lasix] 40 mg PO BID #0 06/09/17 [Rx] Ipratropium/Albuterol Neb [Duoneb] 3 ml IH QID PRN inh 06/09/17 [Rx] Latanoprost [Xalatan] 1 drop BOTH EYES HS bottle 06/09/17 [Rx] Potassium Chloride [Klor-Con 10] 10 meq PO BID 09/15/17 [History] HYDROcodone/Acet 5/325 mg [[place] 5-325 mg] 1 tab PO Q4HR PRN #12 tablet [Rx] Aspirin Enteric Coated [Aspirin EC] 81 mg PO DAILY 09/25/17 [History] Bisacodyl [Dulcolax] 10 mg RC DAILY PRN 09/25/17 [History] Ferrous Sulfate 325 mg PO DAILY 09/25/17 [History] LORazepam [Ativan] 0.5 mg PO QAM 09/25/17 [History] MOM Conc [Milk of Magnesia Conc] 30 ml PO DAILY PRN 09/25/17 [History] 3 Allergy/AdvReac Type Severity Reaction Status Date / Time Sulfa (Sulfonamide Allergy See Verified 09/23/17 09:26 Antibiotics) Comments ROS unobtainable: due to mental status Palliative Care-Exam - Constitutional Vitals: Temp Pulse Resp BP Pulse Ox 97.9 F 70 14 120/63 97 09/29/17 06:59 09/29/17 06:59 09/29/17 06:59 09/29/17 06:59 09/29/17 06:59 General appearance: Present: no acute distress - Head Head Exam: Present: atraumatic, normal inspection - Eye Eye exam: Present: normal appearance - Respiratory Respiratory exam: Present: decreased breath sounds - Cardiovascular Cardiovascular exam: Present: RRR - GI/Abdominal Exam GI/Abdominal exam: Present: normal bowel sounds, soft. Absent: tenderness - Extremities Exam Extremities exam: Present: normal inspection, tenderness (with movement of hip.) . Absent: pedal edema - Neurological Exam Neurological exam: Present: altered. Absent: oriented X3 - Psychiatric Psychiatric exam: Absent: agitated, anxious - Skin Skin exam: Present: dry, warm Internal Medicine - CN: Reslt - Labs CBC & Chem 7: 09/29/17 03:32 09/29/17 03:32 Labs: Short CBC 09/29/17 Range/Units 03:32 WBC 11.0 (4.3-11.1) K/mcL Hgb 8.8 L (11.5-15.4) g/dL Hct 27.4 L (35.3-44.9) % Plt Count 252 (140-400) K/mcL Neutrophils # 8.7 (1.6-8.9) K/mcL BMP 09/29/17 03:32 Sodium 138 Potassium 4.0 Chloride 112 H Carbon Dioxide 17 L BUN 68 H Creatinine 4.20 H Glucose 93 Calcium 8.1 L Liver Function 09/29/17 Range/Units 03:32 Total Bilirubin 0.4 (0.3-1.0) mg/dL AST 13 (13-39) Units/L ALT 7 (7-52) Units/L Alkaline Phosphatase 95 (34-104) Units/L Albumin 2.9 L (3.5-5.7) g/dL - ABG Interpretation ABG results: PT/INR, D-dimer PT 12.6 Seconds (9.4-12.1) H 09/25/17 19:01 - Impressions Impressions Abdomen/Pelvis CT 09/28/17 13:00 IMPRESSION: 1. Trace pleural effusions and bibasilar atelectasis 2. Chronic atrophy of the left kidney with marked dilatation of the collecting system. 3. Mildly distended gallbladder with gallstones 4. 3 cm AAA, unchanged RECOMMENDATIONS: Managing Abdominal Aortic Aneurysms 3.0-3.4 cm: Every 3 years. Reference: J Vasc Surg. 2008;50(4 Suppl):S2-49 D/ / Gomez Williamson MD / Gomez Williamson MD Interpreting Provider: Gomez Williamson MD Consult Discharge Plan - Plan Referrals: Yuri Beck [Primary Care Provider] - ([facility] Palliative Quality Palliative Quality: Screen for Code Status: Yes, Screen for Goals of Care: Yes, Screen for Pain: Yes, If Pain Regimen Started, Initiate Bowel Regimen: Yes, Screen for Nausea/Vomitting: Yes
--- NOTE | 2017-09-29 10:20 | Electrocardiograph Report ---
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
--- NOTE | 2017-09-29 10:28 | Discharge Summary ---
Date of Encounter: 09/29/17 Time of Encounter: 10:25 - Discharge Diagnosis (1) Acute metabolic encephalopathy Priority: Primary Status: Acute (2) WILL (acute kidney injury) Priority: Primary Status: Acute (3) UTI (urinary tract infection) Priority: Primary Status: Acute Qualifiers: Urinary tract infection type: acute cystitis Hematuria presence: without hematuria Qualified Code(s): N30.00 - Acute cystitis without hematuria (4) COPD (chronic obstructive pulmonary disease) Priority: Secondary Status: Acute Qualifiers: COPD type: unspecified COPD Qualified Code(s): J44.9 - Chronic obstructive pulmonary disease, unspecified (5) CHF (congestive heart failure) Priority: Secondary Status: Acute Qualifiers: Congestive heart failure type: diastolic Congestive heart failure chronicity: chronic Qualified Code(s): I50.32 - Chronic diastolic (congestive ) heart failure - Discharge Medications Prescriptions: OxyCODONE Immed Rel [Roxicodone 5 MG] 5 mg PO Q6HR PRN #7 tablet PRN Reason: Moderate Pain (4-6) Home Medications: Cholecalciferol (D-3) [Vitamin D] 1,000 unit PO DAILY 06/03/17 [History] Docusate [Colace] 100 mg PO HS 06/03/17 [History] Multivitamin-Min/Iron/FA/Vit K [Multi-Day Plus Minerals Tablet] 1 each PO DAILY 06/03/17 [History] Omeprazole [PriLOSEC] 20 mg PO DAILY 06/03/17 [History] Simvastatin [Zocor] 10 mg PO HS 06/03/17 [History] Ipratropium/Albuterol Neb [Duoneb] 3 ml IH QID PRN inh 06/09/17 [Rx] Latanoprost [Xalatan] 1 drop BOTH EYES HS bottle 06/09/17 [Rx] Potassium Chloride [Klor-Con 10] 10 meq PO BID 09/15/17 [History] Aspirin Enteric Coated [Aspirin EC] 81 mg PO DAILY 09/25/17 [History] Bisacodyl [Dulcolax] 10 mg RC DAILY PRN 09/25/17 [History] Ferrous Sulfate 325 mg PO DAILY 09/25/17 [History] LORazepam [Ativan] 0.5 mg PO QAM 09/25/17 [History] MOM Conc [MILK OF MAGNESIA conc] 30 ml PO DAILY PRN 09/25/17 [History] OxyCODONE Immed Rel [Roxicodone 5 MG] 5 mg PO Q6HR PRN #7 tablet 09/29/17 [Rx] Allergies/Adverse Reactions: 3 Allergy/AdvReac Type Severity Reaction Status Date / Time Sulfa (Sulfonamide Allergy See Verified 09/23/17 09:26 Antibiotics) Comments Procedures/tests Complete & Pending: Procedures Performed prior 72 hours Category Date Time Status CT abd pelvis wo no iv no oral [CT] Routine Cat Scan 09/28/17 13:00 Completed EKG [ECG 12 lead ECG] [ECG] Stat Y 09/27/17 11:02 Completed Date of admission: 09/25/17 22:37 Primary care physician: Yuri Beck Consults: 09/25/17 22:51 Consult to Speech Therapy [CONS] Routine Comment: Evaluate, develop and implement POC Reason for Consult: eval Call Completed: No 09/26/17 07:35 Consult to Gill Net Stringer [CONS] Routine Reason for SW Consult: return to [facility] Discharging clinician: Howie Han - Patient Status Disposition: Hospice - Medical Facility Condition: Fair Functional capacity at discharge: bed bound Overall status at discharge: patient is not back to baseline - Discharge Instructions Follow Up With: Yuri Beck [Primary Care Provider] - (Patient will follow up at the [facility]) - Diet and Activity Activity: increase activity as tolerated Diet: regular diet Interval History: Ms. Handy is a 86 year old female with a past medical history of dementia, recently discharged from the hospital which was treated for an trochanteric fracture and pubic ramus fracture, also has history of atrial fibrillation not on anticoagulation and diastolic CHF. Was transferred to [facility] as the care home where she resides order lab work that showed acute renal failure. Her creatinine today is 3.56 and her baseline is around 1.49. CT scan of the head does not show any abnormalities, chest x-ray is unremarkable and the UA shows too numerous to count white blood cells with moderate bacteria. No culture was performed from the laboratory. Her pressure is 148/56. The patient is very confused disoriented and not able to provide any history Hospital course: Patient was hospitalized. She was started on a antibiotics. Patient initially responded to the treatment but followed by she was gradually worsening. Upon arrival her creatinine was 3.56 which was gradually worsened to 4.2 today. I discussed this case with Dr. Rose who is a trade show specialist. I also offered nephrology evaluation to family and options discussed. Family decided to go into comfort care/palliative/hospice route. Family does not want any active intervention in terms of vigorous antibiotic/antimicrobial therapy, hemodialysis /peritoneal dialysis, any intervention in terms of cardiological procedure for underlying heart issues. I had a long discussion with the patient's son along with his sisters. Options and plan of care discussed with the family. Family decided to go into comfort care/palliative route. This morning I involved palliative care doctor Marcia to see patient. I understood that family would like to take the patient to [facility] and would like to involve [facility] hospice. Plan: Patient will be going back to [facility] today. Prescriptions for controlled substance provided. Upon arrival to the [facility] hospice can take over. All the questions answered. At the time of discharge patient's family does not have any concerns, updates or recommendations. - Time Spent with Patient Total time spent providing and/or coordinating discharge services: - Constitutional Vitals: Temp Pulse Resp BP Pulse Ox 97.9 F 70 14 120/63 97 09/29/17 06:59 09/29/17 06:59 09/29/17 06:59 09/29/17 06:59 09/29/17 06:59 General appearance: Present: A&O X 1 - Head Head exam: Present: atraumatic, normocephalic - Eye Eye exam: Present: PERRL, conjuntiva pink, sclera anicteric Pupils: Present: PERRL - Neck Neck exam general surgery: Present: supple, trachea midline. Absent: lymphadenopathy - Respiratory Respiratory exam: Present: CTAB. Absent: accessory muscle use, rales, rhonchi, wheezes - Cardiovascular Cardiovascular exam: Present: RRR, +S1, +S2. Absent: diastolic murmur, gallop, rubs, systolic murmur - GI/Abdominal GI/Abdominal exam: Present: normal bowel sounds, soft, no peritoneal signs. Absent: distended, tenderness - Extremities Exam Extremities exam: Present: warm, radial pulses palpable and symmetrical. Absent : calf tenderness, cyanotic, pedal edema - Neurological Exam Neurological exam: Present: CN II-XII intact, oriented X3, no focal deficits. Absent: pronater drift, facial droop, speech deficit - Skin Skin exam: Present: dry, intact
--- NOTE | 2017-09-29 10:34 | Physician Discharge Referral ---
ExtendedCare Referral Info Transfer To: [facility] Provider in Charge after Transfer: Mandarin Teacher - Diagnosis (1) Acute metabolic encephalopathy Priority: Primary Status: Acute (2) WILL (acute kidney injury) Priority: Primary Status: Acute (3) UTI (urinary tract infection) Priority: Primary Status: Acute (4) COPD (chronic obstructive pulmonary disease) Priority: Secondary Status: Acute (5) CHF (congestive heart failure) Priority: Secondary Status: Acute - Transfer Medications Prescriptions: OxyCODONE Immed Rel [Roxicodone 5 MG] 5 mg PO Q6HR PRN #7 tablet PRN Reason: Moderate Pain (4-6) Home Medications: Cholecalciferol (D-3) [Vitamin D] 1,000 unit PO DAILY 06/03/17 [History] Docusate [Colace] 100 mg PO HS 06/03/17 [History] Multivitamin-Min/Iron/FA/Vit K [Multi-Day Plus Minerals Tablet] 1 each PO DAILY 06/03/17 [History] Omeprazole [PriLOSEC] 20 mg PO DAILY 06/03/17 [History] Simvastatin [Zocor] 10 mg PO HS 06/03/17 [History] Ipratropium/Albuterol Neb [Duoneb] 3 ml IH QID PRN inh 06/09/17 [Rx] Latanoprost [Xalatan] 1 drop BOTH EYES HS bottle 06/09/17 [Rx] Potassium Chloride [Klor-Con 10] 10 meq PO BID 09/15/17 [History] Aspirin Enteric Coated [Aspirin EC] 81 mg PO DAILY 09/25/17 [History] Bisacodyl [Dulcolax] 10 mg RC DAILY PRN 09/25/17 [History] Ferrous Sulfate 325 mg PO DAILY 09/25/17 [History] LORazepam [Ativan] 0.5 mg PO QAM 09/25/17 [History] MOM Conc [MILK OF MAGNESIA conc] 30 ml PO DAILY PRN 09/25/17 [History] OxyCODONE Immed Rel [Roxicodone 5 MG] 5 mg PO Q6HR PRN #7 tablet 09/29/17 [Rx] Allergies/Adverse Reactions: 3 Allergy/AdvReac Type Severity Reaction Status Date / Time Sulfa (Sulfonamide Allergy See Verified 09/23/17 09:26 Antibiotics) Comments - Respiratory Orders Smoking Cessation: Smoking cessation has been advised. For more information, call the [place] Tobacco Quit Line at 1-314-YBLK-NOW. - Rehabiliation Orders Rehab Orders: Evaluation for Physical Therapy - Treatments May check for fecal impaction rectally daily PRN, Fleet enema rectally every other day PRN cleansing purposes CERTIFICATION: I certify that the transfer of the above named patient to an Extended Care Facility is necessary for the continuing treatment of the diagnosis listed. The above information is true and accurate reflection of patient's current condition. Confidential - Redisclosure prohibited without a patient's written consent.
== END 2017-09-29 12:24 | disposition hospice, inpatient (51) | DRG 689 ==
LOC: EMEROO 18:34 → 2ANU 18:34
PROVIDERS: ADMIT Internal Medicine; ATTEND Internal Medicine